=== PATIENT | male | born 1960 | race Caucasian/White ===

== ENCOUNTER 2018-02-19 13:32 | Inpatient (IN) | payer OTHER ==
[2018-02-19] MEDS ORDERED: SODIUM CHLORIDE 0.9% 1,000 ML IV STA (14:00)
--- NOTE | 2018-02-19 14:07 | ED ---
General Adult HPI - General Chief complaint: Syncope Stated complaint: Syncope Time Seen by Provider: 02/19/18 13:47 Source: patient, family, EMS, RN notes reviewed Mode of arrival: EMS Limitations: no limitations - History of Present Illness Initial comments: Patient is a pleasant 57-year-old male presenting to the emergency department following syncopal episode. Episode occurred prior to arrival. Patient was doing some work on the roof. Patient was coming down the ladder and started having some tightness in his chest. Tightness did radiate to both arms. Tightness is now resolved. When the patient got off the ladder he felt worse and went inside and then passed out. Patient was unresponsive for close to 1 minute. Patient is currently symptom-free. Patient has had similar chest discomfort in the past however not as severe. No history of previous syncopal episode. Patient did strike the area above his left eye. No headache or confusion or weakness. No dyspnea associated. No nausea vomiting. No diaphoresis. No leg pain or leg swelling. - Related Data Home Medications Medication Instructions Recorded Confirmed Ascorbic Acid [Vitamin C] 500 mg PO DAILY 02/19/18 02/19/18 Vitamin E 100 unit PO DAILY 02/19/18 02/19/18 Allergies Allergy/AdvReac Type Severity Reaction Status Date / Time Milk Containing Products AdvReac CONGESTION Verified 02/19/18 13:48 [Dairy] Review of Systems ROS Statement: Those systems with pertinent positive or pertinent negative responses have been documented in the HPI. ROS Other: All systems not noted in ROS Statement are negative. Constitutional: Denies: fever Eyes: Denies: eye pain ENT: Denies: ear pain Respiratory: Denies: cough, dyspnea Cardiovascular: Reports: chest pain (Resolved) Endocrine: Denies: fatigue Gastrointestinal: Denies: abdominal pain Genitourinary: Denies: dysuria Musculoskeletal: Denies: back pain Skin: Denies: rash Neurological: Denies: headache, weakness, confusion Past Medical History Past Medical History: No Reported History History of Any Multi-Drug Resistant Organisms: None Reported Past Surgical History: No Surgical Hx Reported Past Psychological History: No Psychological Hx Reported Smoking Status: Never smoker Past Alcohol Use History: Rare Past Drug Use History: None Reported General Exam Limitations: no limitations General appearance: alert, in no apparent distress Head exam: Present: other (Mild ecchymosis just below the left eyebrow) Eye exam: Present: normal appearance, PERRL, EOMI. Absent: nystagmus ENT exam: Present: normal oropharynx Neck exam: Present: normal inspection. Absent: tenderness Respiratory exam: Present: normal lung sounds bilaterally. Absent: chest wall tenderness Cardiovascular Exam: Present: regular rate, normal rhythm, systolic murmur Expanded Peripheral pulses: 2+: Radial (R), Radial (L), Posterior Tibialis (R), Posterior Tibialis (L), Dorsalis Pedis (R), Dorsalis Pedis (L) GI/Abdominal exam: Present: soft. Absent: distended, tenderness, pulsatile mass Extremities exam: Present: normal inspection. Absent: pedal edema, calf tenderness Neurological exam: Present: alert, oriented X3, CN II-XII intact. Absent: motor sensory deficit Expanded Neurological exam: Present: protecting the airway Patient oriented to: Present: person, place, time Speech: Present: fluid speech Cranial nerves: EOM's Intact: Normal Sensory exam: Upper Extremity Light Touch: Normal, Lower Extremity Light Touch: Normal Motor strength exam: RUE: 5, LUE: 5, RLE: 5, LLE: 5 Eye Response: (4) open spontaneously Motor Response: (6) obeys commands Verbal Response: (5) oriented Psychiatric exam: Present: normal affect, normal mood Skin exam: Present: other (Ecchymosis below the left eyebrow) Course Vital Signs 02/19/18 13:47 Temperature 98.1 F Pulse Rate 97 Respiratory 16 Rate Blood Pressure 143/95 O2 Sat by Pulse 97 Oximetry - Reevaluation(s) Reevaluation #1: 02/19/18 14:19 Case was discussed with Dr. Jose who agrees patient is not a candidate for emergent heart catheterization. He agrees with workup and d-dimer and will consult. 02/19/18 16:07 Case was also discussed with Dr. Schulz, who will admit covering for hospital call. EKG Findings - EKG Comments: EKG Findings:: Normal sinus rhythm 99. IN 188. QRS 90. QT 382. QTC 490. Normal axis. T-wave inversion in lead V3 through V5 with borderline ST depression. There is isolated elevation in aVR. Medical Decision Making - Medical Decision Making Patient reevaluated and resting comfortably in bed. Patient and family updated on results and plan. - Lab Data Result diagrams: 02/19/18 13:44 02/19/18 13:44 Lab Results 02/19/18 02/19/18 02/19/18 Range/Units 13:40 13:44 13:44 WBC 8.5 (3.8-10.6) k/uL RBC 4.63 (4.30-5.90) m/uL Hgb 14.0 (13.0-17.5) gm/dL Hct 42.6 (39.0-53.0) % MCV 92.2 (80.0-100.0) fL MCH 30.2 (25.0-35.0) pg MCHC 32.8 (31.0-37.0) g/dL RDW 12.7 (11.5-15.5) % Plt Count 257 (150-450) k/uL Neutrophils % 75 % Lymphocytes % 18 % Monocytes % 4 % Eosinophils % 1 % Basophils % 1 % Neutrophils # 6.4 (1.3-7.7) k/uL Lymphocytes # 1.5 (1.0-4.8) k/uL Monocytes # 0.4 (0-1.0) k/uL Eosinophils # 0.1 (0-0.7) k/uL Basophils # 0.1 (0-0.2) k/uL PT (9.0-12.0) sec INR (<1.2) APTT (22.0-30.0) sec D-Dimer (<0.60) mg/L FEU Sodium (137-145) mmol/L Potassium (3.5-5.1) mmol/L Chloride (98-107) mmol/L Carbon Dioxide (22-30) mmol/L Anion Gap mmol/L BUN (9-20) mg/dL Creatinine (0.66-1.25) mg/dL Est GFR (CKD-EPI)AfAm (>60 ml/min/1.73 sqM) Est GFR (CKD-EPI)NonAf (>60 ml/min/1.73 sqM) Glucose (74-99) mg/dL POC Glucose (mg/dL) 130 H (75-99) mg/dL POC Glu [employer] Supervisor ID Vianey Pichardo Calcium (8.4-10.2) mg/dL Magnesium (1.6-2.3) mg/dL Total Bilirubin (0.2-1.3) mg/dL AST (17-59) U/L ALT (21-72) U/L Alkaline Phosphatase (38-126) U/L Total Creatine Kinase 191 H (55-170) U/L CK-MB (CK-2) 3.8 H (0.0-2.4) ng/mL CK-MB (CK-2) Rel Index 2.0 Troponin I 0.085 H* (0.000-0.034) ng/mL Total Protein (6.3-8.2) g/dL Albumin (3.5-5.0) g/dL 02/19/18 02/19/18 Range/Units 13:44 13:44 WBC (3.8-10.6) k/uL RBC (4.30-5.90) m/uL Hgb (13.0-17.5) gm/dL Hct (39.0-53.0) % MCV (80.0-100.0) fL MCH (25.0-35.0) pg MCHC (31.0-37.0) g/dL RDW (11.5-15.5) % Plt Count (150-450) k/uL Neutrophils % % Lymphocytes % % Monocytes % % Eosinophils % % Basophils % % Neutrophils # (1.3-7.7) k/uL Lymphocytes # (1.0-4.8) k/uL Monocytes # (0-1.0) k/uL Eosinophils # (0-0.7) k/uL Basophils # (0-0.2) k/uL PT 9.8 (9.0-12.0) sec INR 0.9 (<1.2) APTT 20.8 L (22.0-30.0) sec D-Dimer 0.46 (<0.60) mg/L FEU Sodium 140 (137-145) mmol/L Potassium 4.1 (3.5-5.1) mmol/L Chloride 106 (98-107) mmol/L Carbon Dioxide 24 (22-30) mmol/L Anion Gap 10 mmol/L BUN 20 (9-20) mg/dL Creatinine 0.72 (0.66-1.25) mg/dL Est GFR (CKD-EPI)AfAm >90 (>60 ml/min/1.73 sqM) Est GFR (CKD-EPI)NonAf >90 (>60 ml/min/1.73 sqM) Glucose 118 H (74-99) mg/dL POC Glucose (mg/dL) (75-99) mg/dL POC Glu [employer] Supervisor ID Calcium 9.4 (8.4-10.2) mg/dL Magnesium 1.7 (1.6-2.3) mg/dL Total Bilirubin 0.6 (0.2-1.3) mg/dL AST 35 (17-59) U/L ALT 28 (21-72) U/L Alkaline Phosphatase 79 (38-126) U/L Total Creatine Kinase (55-170) U/L CK-MB (CK-2) (0.0-2.4) ng/mL CK-MB (CK-2) Rel Index Troponin I (0.000-0.034) ng/mL Total Protein 7.9 (6.3-8.2) g/dL Albumin 4.6 (3.5-5.0) g/dL - Radiology Data Radiology results: report reviewed (Computed tomography scan of brain shows no acute intercranial hemorrhage. Nonspecific right frontal change favoring chronic small vessel disease), image reviewed (Chest x-ray shows no acute process.) Critical Care Time Critical Care Time: Yes Total Critical Care Time: 33 Disposition Clinical Impression: NSTEMI (non-ST elevated myocardial infarction) Disposition: ADMITTED IP TO THIS HOSP Condition: Serious Is patient prescribed a controlled substance at d/c from ED?: No Referrals: None,Stated [Primary Care Provider] - 1-2 days Decision Time: 16:09
[2018-02-19 14:09] LABS: Glucose,Whole Blood 130 mg/dL (75-99)
[2018-02-19 14:40] LABS: Basophils # (A) 0.1 k/uL (0-0.2); Basophils % (A) 1 %; Eosinophils # (A) 0.1 k/uL (0-0.7); Eosinophils % (A) 1 %; HCT 42.6 % (39.0-53.0); Lymphocytes # (A) 1.5 k/uL (1.0-4.8); Lymphocytes % (A) 18 %; MCH 30.2 pg (25.0-35.0); MCHC 32.8 g/dL (31.0-37.0); MCV 92.2 fL (80.0-100.0); Mean Platelet Volume 7.4; Monocytes # (A) 0.4 k/uL (0-1.0); Monocytes % (A) 4 %; Neutrophils # (A) 6.4 k/uL (1.3-7.7); Neutrophils % (A) 75 %; Platelet Count 257 k/uL (150-450); RBC 4.63 m/uL (4.30-5.90); RDW 12.7 % (11.5-15.5); WBC 8.5 k/uL (3.8-10.6)
[2018-02-19 14:50] LABS: Albumin 4.6 g/dL (3.5-5.0); Anion Gap 10 mmol/L; Blood Urea Nitrogen 20 mg/dL (9-20); Calcium 9.4 mg/dL (8.4-10.2); Carbon Dioxide 24 mmol/L (22-30); Chloride 106 mmol/L (98-107); Glucose 118 mg/dL (74-99); Sodium 140 mmol/L (137-145); Total Bilirubin 0.6 mg/dL (0.2-1.3); Total Protein 7.9 g/dL (6.3-8.2)
[2018-02-19 14:52] LABS: ALT 28 U/L (21-72); AST 35 U/L (17-59); Alkaline Phosphatase 79 U/L (38-126); Magnesium 1.7 mg/dL (1.6-2.3); Potassium 4.1 mmol/L (3.5-5.1)
--- NOTE | 2018-02-19 15:05 | CT ---
EXAMINATION TYPE: CT brain wo con DATE OF EXAM: 02/19/2018 HISTORY: Syncope and dizziness, hit head injury. CT DLP: 1070.4 mGycm. Automated Exposure Control for Dose Reduction was Utilized. TECHNIQUE: CT scan of the head is performed without contrast. COMPARISON: None. FINDINGS: There is no acute intracranial hemorrhage or midline shift identified. Ventricles and sul ci are within normal limits in size for patient's age. Vague area of low-attenuation right frontal wh ite matter near axial image 31 is nonspecific. The globes are intact and the visualized sinuses are clear. The calvarium is intact. IMPRESSION: No acute intracranial hemorrhage or midline shift. There is nonspecific right frontal w ulysses matter change favoring product of chronic small vessel ischemia. Other etiologies not excluded.
[2018-02-19 15:10] LABS: INR 0.9 (<1.2)
[2018-02-19 15:11] LABS: D-Dimer 0.46 mg/L FEU (<0.60); Partial Thromboplastin Time 20.8 sec (22.0-30.0); Prothrombin Time 9.8 sec (9.0-12.0)
[2018-02-19 15:13] LABS: Creatine Kinase MB 3.8 ng/mL (0.0-2.4)
--- NOTE | 2018-02-19 15:21 | XR ---
EXAMINATION TYPE: XR chest 2V DATE OF EXAM: 02/19/2018 COMPARISON: NONE HISTORY: Chest pressure and shortness of breath TECHNIQUE: Frontal and lateral views of the chest are obtained. FINDINGS: There is eventration and elevation anterior aspect right hemidiaphragm. There is no focal a ir space opacity, pleural effusion, or pneumothorax seen. The cardiac silhouette size is mildly enla rged. The osseous structures are intact. IMPRESSION: Mild cardiomegaly without acute pulmonary process.
[2018-02-19 15:24] LABS: Troponin I 0.085 ng/mL (0.000-0.034)
[2018-02-19] MEDS ORDERED: NITROGLYCERIN SL TABS 0.4 MG TAB SUBLINGUAL PRN (16:23)
[2018-02-19] MEDS ORDERED: HEPARIN SODIUM,PORCINE 5,000 UNIT/ML 1 ML VIAL IV ONE (16:23)
[2018-02-19] MEDS ORDERED: HEPARIN SODIUM,PORCINE 5,000 UNIT/ML 1 ML VIAL IV PRN (16:23)
[2018-02-19] MEDS ORDERED: ASPIRIN 81 MG PO STA (16:23)
[2018-02-19] MEDS ORDERED: HEPARIN SOD,PORK IN 0.45% NACL 25,000 UNIT in 0.45% NACL 1 250ML.BAG IV SCH (16:30)
--- NOTE | 2018-02-19 19:19 | CONS ---
CONSULTATION CHIEF COMPLAINT: Syncope. Volodymyr is a 57-year-old gentleman with no significant past medical history who presented to the hospital having had an episode of syncope. He was up on a ladder coming down, felt dizzy, had discomfort in both arms and then suddenly had a syncopal event. He did not have further episodes of chest pain. He came to the ER where his EKG showed sinus rhythm with inferolateral T-wave inversion and his troponin was mildly elevated at 0.08. At the time of my evaluation in the emergency room, he is pain free, hemodynamically stable and in no apparent distress. PAST MEDICAL HISTORY: Negative for hypertension, diabetes or dyslipidemia. MEDICATIONS: None. ALLERGIES: None. FAMILY HISTORY: Negative for premature coronary artery disease. SOCIAL HISTORY: Negative for current smoking, EtOH abuse, or drug abuse. REVIEW OF SYSTEMS: HEENT: Significant for syncope. Cardiac as described above. Respiratory negative. GI negative. : Negative. ALLERGY: Negative. SKIN unremarkable. MUSCULOSKELETAL: Significant for arthritis. PSYCHOSOCIAL: Negative. ENDOCRINE: Negative. DERM: Negative. CONSTITUTIONAL: Negative. ONCOLOGICAL: Negative. CENTRAL NERVOUS SYSTEM: Negative. EXAM: Patient is comfortable at rest. Afebrile. Heart rate is 84 beats per minute. Blood pressure is 153/80. Respirations 18. O2 sat is 98% on room air. There is no jugular venous distention. Carotid upstroke is normal. There is no bruit. Chest exam reveals good air entry bilaterally. Heart exam reveals first and second heart sounds. There is a 4/6 ejection systolic murmur in the aortic area. No murmur. No rub. Abdomen is soft, nontender. Exam of extremities did not reveal edema. Peripheral pulses are felt and a EKGs as described above. Lab showed that the potassium is 4.1. Creatinine is normal. Hemoglobin is normal. Trope is elevated. ASSESSMENT: 1. Severe symptomatic aortic stenosis. 2. Non ST-segment elevation myocardial infarction. PLAN: I reviewed an echocardiogram that was being done at bedside. Has severe aortic stenosis with severe restriction leaflet mobility. I am going to perform a ELI and heart catheterization on him tomorrow. MMODL / IJN: [id number] /
--- NOTE | 2018-02-19 19:35 | P.HPIM ---
History of Present Illness 57-year-old that came in after episode of syncope patient the was coming down the ladder fell dizzy had chest discomfort which is typical with lightheadedness denied any significant diaphoresis and shortness of breath his the chest pain is in the precordial area pressure-like sensation lasted for a few minutes followed by syncope. Patient denied any fever chills cough. Fourth set of troponin is 0.085 and patient does have T-wave inversions in inferolateral leads as well as ST depressions in the inferior leads. Patient was started on IV heparin is being treated like non-ST elevation myocardial infarction Undergo cardiac catheterization tomorrow patient is presently chest pain-free. Patient does have bruising over left eyelids from fall. Review of Systems REVIEW OF SYSTEMS: CONSTITUTIONAL: No fever, no malaise, no fatigue. HEENT: No recent visual problems or hearing problems. Denied any sore throat. CARDIOVASCULAR: As mentioned in HPI PULMONARY: No shortness of breath, no cough, no hemoptysis. GASTROINTESTINAL: No diarrhea, no nausea, no vomiting, no abdominal pain. NEUROLOGICAL: No headaches, no weakness, no numbness. HEMATOLOGICAL: Denies any bleeding or petechiae. GENITOURINARY: Denies any burning micturition, frequency, or urgency. MUSCULOSKELETAL/RHEUMATOLOGICAL: Denies any joint pain, swelling, or any muscle pain. ENDOCRINE: Denies any polyuria or polydipsia. The rest of the 14-point review of systems is negative. Past Medical History Past Medical History: No Reported History History of Any Multi-Drug Resistant Organisms: None Reported Past Surgical History: No Surgical Hx Reported Past Psychological History: No Psychological Hx Reported Smoking Status: Never smoker Past Alcohol Use History: Rare Past Drug Use History: None Reported Medications and Allergies Home Medications Medication Instructions Recorded Confirmed Type Ascorbic Acid [Vitamin C] 500 mg PO DAILY 02/19/18 02/19/18 History Vitamin E 100 unit PO DAILY 02/19/18 02/19/18 History Allergies Allergy/AdvReac Type Severity Reaction Status Date / Time Milk Containing Products AdvReac CONGESTION Verified 02/19/18 13:48 [Dairy] Physical Exam Vitals: Vital Signs Temp Pulse Resp BP Pulse Ox 02/19/18 17:00 97.8 F 84 20 153/82 98 02/19/18 16:00 82 18 128/88 98 02/19/18 15:00 86 18 132/84 97 01/07/19 14:00 98 18 143/95 98 02/19/18 13:47 98.1 F 97 16 143/95 97 02/19/18 13:37 100 Intake and Output 02/19/18 02/19/18 02/19/18 06:59 14:59 22:59 Other: Weight 92.986 kg PHYSICAL EXAMINATION: GENERAL: The patient is alert and oriented x3, not in any acute distress. Well developed, well nourished. HEENT: Pupils are round and equally reacting to light. EOMI. No scleral icterus. No conjunctival pallor. Normocephalic, atraumatic. No pharyngeal erythema. No thyromegaly. CARDIOVASCULAR: S1 and S2 present. She does have an ejection systolic murmur and diuretic area as well as pansystolic murmur in the mitral area mitral area murmur is soft murmur PULMONARY: Chest is clear to auscultation, no wheezing or crackles. ABDOMEN: Soft, nontender, nondistended, normoactive bowel sounds. No palpable organomegaly. MUSCULOSKELETAL: No joint swelling or deformity. EXTREMITIES: No cyanosis, clubbing, or pedal edema. NEUROLOGICAL: Gross neurological examination did not reveal any focal deficits. SKIN: No rashes. Results CBC & Chem 7: 02/19/18 13:44 02/19/18 13:44 Labs: Abnormal Lab Results - Last 24 Hours (Table) 02/19/18 02/19/18 02/19/18 Range/Units 13:40 13:44 13:44 APTT (22.0-30.0) sec Glucose 118 H (74-99) mg/dL POC Glucose (mg/dL) 130 H (75-99) mg/dL Total Creatine Kinase 191 H (55-170) U/L CK-MB (CK-2) 3.8 H (0.0-2.4) ng/mL Troponin I 0.085 H* (0.000-0.034) ng/mL 02/19/18 Range/Units 13:44 APTT 20.8 L (22.0-30.0) sec Glucose (74-99) mg/dL POC Glucose (mg/dL) (75-99) mg/dL Total Creatine Kinase (55-170) U/L CK-MB (CK-2) (0.0-2.4) ng/mL Troponin I (0.000-0.034) ng/mL Assessment and Plan Plan: -Acute non-ST elevation microinfarction: Patient was started on heparin, statin beta silvia and antiplatelet therapy cardiology evaluated the patient echocardiogram will be obtained -Possible severe symptomatic aortic stenosis patient may have mitral regurgitation as well. -Ruled out pulmonary embolism with a d-dimer which was negative. -Syncope possibly secondary to aortic stenosis and acute myocardial infarction
[2018-02-19 20:23] LABS: Creatine Kinase MB 6.4 ng/mL (0.0-2.4)
[2018-02-19 20:26] LABS: Troponin I 0.384 ng/mL (0.000-0.034)
[2018-02-19] MEDS: NITROGLYCERIN OINT 1 INCH/GM PACKET TOPICAL SCH (23:17)
[2018-02-20] MEDS: NITROGLYCERIN OINT 1 INCH/GM PACKET TOPICAL SCH ×2 (01:39→07:01)
[2018-02-20 01:42] LABS: Creatine Kinase MB 7.1 ng/mL (0.0-2.4)
[2018-02-20 01:51] LABS: Troponin I 0.243 ng/mL (0.000-0.034)
--- NOTE | 2018-02-20 07:34 | ECHOF ---
Referral Reason:nstemi MEASUREMENTS -------- HEIGHT: 180.3 cm WEIGHT: 93.0 kg BP: 169/103 RVIDd: 3.0 cm (< 3.3) IVSd: 1.3 cm (0.6 - 1.1) LVIDd: 4.6 cm (3.9 - 5.3) LVPWd: 1.3 cm (0.6 - 1.1) IVSs: 1.7 cm LVIDs: 3.2 cm LVPWs: 1.7 cm LAESV Index (A-L): 28.83 ml/m Ao Diam: 3.6 cm (2.0 - 3.7) AV Cusp: 0.8 cm (1.5 - 2.6) LA Diam: 4.0 cm (2.7 - 3.8) EPSS: 1.1 cm MV E Jose Guadalupe: 0.63 m/s MV DecT: 429 ms MV A Jose Guadalupe: 1.26 m/s MV E/A Ratio: 0.50 AV maxP.89 mmHg AV meanP.39 mmHg RAP: 5.00 mmHg RVSP: 16.54 mmHg MV EF SLOPE: 209.88 mm/s (70 - 150) MV EXCURSION: 2.09 cm (> 18.000) FINDINGS -------- Sinus rhythm. This was a technically good study. The left ventricular size is normal. There is mild concentric left ventricular hypertrophy. Overa ll left ventricular systolic function is low-normal with, an EF between 50 - 55 %. Inferior basal H ypokinesis The right ventricle is normal in size and function. LA is midly dilated 29-33ml/m2. The right atrium is normal in size. There is severe aortic valve sclerosis. There is alvx-am-qobbtydy aortic regurgitation. There is severe aortic stenosis present. Peak/mean gradient across the Aortic Valve is 102.89mmHg / 68.39mmH g. The mitral valve leaflets are mildly thickened. Mild mitral annular calcification present. Mild m itral regurgitation is present. Trace tricuspid regurgitation present. There is no evidence of pulmonary hypertension. The right ventricular systolic pressure, as measured by Doppler, is 16.54mmHg. Trace/mild (physiologic) pulmonic regurgitation. The aortic root size is normal. Normal inferior vena cava with normal inspiratory collapse consistent with estimated right atrial pre ssure of 5 mmHg. There is no pericardial effusion. CONCLUSIONS -------- 1. Sinus rhythm. 2. This was a technically good study. 3. The left ventricular size is normal. 4. There is mild concentric left ventricular hypertrophy. 5. Overall left ventricular systolic function is low-normal with, an EF between 50 - 55 %. 6. Inferior basal Hypokinesis 7. LA is midly dilated 29-33ml/m2. 8. There is severe aortic valve sclerosis. 9. There is awtv-us-cwfustyj aortic regurgitation. 10. There is severe aortic stenosis present. 11. Peak/mean gradient across the Aortic Valve is 102.89mmHg / 68.39mmHg. 12. The mitral valve leaflets are mildly thickened. 13. Mild mitral annular calcification present. 14. Mild mitral regurgitation is present. 15. Trace tricuspid regurgitation present. 16. There is no evidence of pulmonary hypertension. 17. The right ventricular systolic pressure, as measured by Doppler, is 16.54mmHg. 18. Trace/mild (physiologic) pulmonic regurgitation. 19. The aortic root size is normal. 20. There is no pericardial effusion. ENTRY LEVEL STAFF ACCOUNTANT: Troy Salas RDCS
[2018-02-20] MEDS ORDERED: NITROGLYCERIN SL TABS 0.4 MG TAB SUBLINGUAL PRN (08:14)
[2018-02-20] MEDS ORDERED: ALPRAZolam 0.25 MG TAB PO PRN (08:14)
[2018-02-20] MEDS ORDERED: SODIUM CHLORIDE 0.9% 1,000 ML in EMPTY BAG 1 BAG IV ONE (08:14)
[2018-02-20] MEDS ORDERED: ALPRAZolam 0.5 MG TAB PO PRN (08:14)
[2018-02-20] MEDS ORDERED: ATORVASTATIN 80 MG TAB PO STA (08:17)
[2018-02-20] MEDS ORDERED: ASPIRIN 325 MG TAB PO STA (08:17)
[2018-02-20] MEDS ORDERED: ASPIRIN 325 MG TAB PO SCH (09:00)
[2018-02-20] MEDS ORDERED: LIDOCAINE 1% INJ 10MG/ML (20 ML MDV) ONE (10:54)
[2018-02-20] MEDS ORDERED: MIDAZOLAM 2 MG/2 ML VIAL IVP ONE (11:09)
[2018-02-20] MEDS ORDERED: LIDOCAINE 1% INJ 10MG/ML (20 ML MDV) SQ ONE (11:09)
[2018-02-20] MEDS ORDERED: fentaNYL (PF) 50 MCG/ML 2 ML AMP IVP ONE (11:09)
[2018-02-20] MEDS ORDERED: fentaNYL (PF) 50 MCG/ML 2 ML AMP ONE (11:13)
[2018-02-20] MEDS ORDERED: IOPAMIDOL-370 125ML BTL INJ ONE (11:26)
[2018-02-20] MEDS ORDERED: IV FLUID CONTINUATION 1,000 ML IV ONE (11:27)
[2018-02-20] MEDS ORDERED: RX INFO: IV CONTRAST WAS GIVEN 1 EACH MISC MISCELLANE PRN (11:33)
--- NOTE | 2018-02-20 11:56 | CC ---
CARDIAC CATHETERIZATION REPORT INDICATION: 1. Syncope. 2. Non ST-segment elevation OR. 3. Aortic stenosis. PROCEDURE NOTE: After obtaining informed consent, left heart catheterization, coronary angiogram are performed via the right femoral artery using standard Red catheters. The patient tolerated the procedure well without any obvious immediate complications. A femoral angiogram was performed and Angio-Seal will be deployed for hemostasis. FINDINGS: 1. HEMODYNAMICS: Central aortic pressure is 142/90 mm. 2. LEFT VENTRICULOGRAM: Left ventriculogram was not performed. 3. ANGIOGRAPHIC DATA: Left main coronary artery appears calcified but is free of significant stenosis. Divides into left anterior descending coronary artery and circumflex coronary artery. LAD and its branches are free of significant stenosis. Circumflex coronary artery shows mild nonobstructive disease. Right coronary artery is a large dominant vessel and is free of significant stenosis. CONCLUSION: 1. Mild nonobstructive coronary artery disease. 2. Severe aortic stenosis. PLAN: Patient will need an aortic valve replacement. I am going to ask the surgeon to evaluate the patient. MMODL / IJN: [id number] /
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
[2018-02-20] MEDS: SODIUM CHLORIDE 0.9% 1,000 ML IV SCH ×2 (15:37→22:43)
[2018-02-20] MEDS: amLODIPine 10 MG TAB PO SCH (16:28)
[2018-02-20 16:35] LABS: Appearance,Urine Clear (Clear); Bilirubin,Urine Negative (Negative); Blood,Urine Trace (Negative); Color,Urine Yellow; Glucose,Urine (UA) Negative (Negative); Ketones,Urine Negative (Negative); Leukocyte Esterase,Urine Negative (Negative); Nitrite,Urine Negative (Negative); Protein,Urine Negative (Negative); RBC,Urine 6 /hpf (0-5); Urobilinogen,Urine <2.0 mg/dL (<2.0); WBC,Urine 2 /hpf (0-5)
[2018-02-20 16:36] LABS: Specific Gravity,Urine 1.046 (1.001-1.035)
--- NOTE | 2018-02-20 17:21 | P.PN ---
Subjective Patient came in with the chest pain, syncopal episode with elevated troponins. Patient underwent cardia catheterization which did not show any significant atherosclerotic coronary occlusive disease patient appears to have severe aortic stenosis for which occurred in thoracic surgery was consulted and they evaluated the patient patient probably will be discharged tomorrow will come back for valve replacement. Cardiac thoracic surgery is presently doing pulmonary workup for valve replacement. Constitutional: Denied any fatigue denied any fever. Cardio vascular: denied any chest pain, palpitations Gastrointestinal denied any nausea vomiting Pulmonary: Denied any shortness of breath cough Neurologic denied any new focal deficits All inpatient medications were reviewed and appropriate changes in these medications as dictated in the interval history and assessment and plan. Objective - Vital Signs Vital signs: Vital Signs Temp 97.4 F L 02/20/18 15:18 Pulse 65 02/20/18 15:18 Resp 18 02/20/18 15:18 BP 121/77 02/20/18 15:18 Pulse Ox 94 L 02/20/18 15:18 Intake & Output 02/19/18 02/20/18 02/20/18 18:59 06:59 18:59 Intake Total 916.643 50 Balance 916.643 50 Weight 92.986 kg Intake: IV 50 Intake, IV Titration 676.643 Amount Heparin Sod,Pork in 0.45% 76.643 NaCl 25,000 unit In 0.45 % NaCl 1 250ml.bag @ 10. 77 UNITS/KG/HR 10.01 mls/ hr IV .Q24H JOVANNY Rx#: [id number] Sodium Chloride 0.9% 1, 600 000 ml @ 100 mls/hr IV . Q10H STA Rx#:[id number] Oral 240 Other: Voiding Method Toilet # Voids 4 - Exam PHYSICAL EXAMINATION: GENERAL: The patient is alert and oriented x3, not in any acute distress. Well developed, well nourished. HEENT: Pupils are round and equally reacting to light. EOMI. No scleral icterus. No conjunctival pallor. Normocephalic, atraumatic. No pharyngeal erythema. No thyromegaly. CARDIOVASCULAR: S1 and S2 present. Systolic murmur and aortic area PULMONARY: Chest is clear to auscultation, no wheezing or crackles. ABDOMEN: Soft, nontender, nondistended, normoactive bowel sounds. No palpable organomegaly. MUSCULOSKELETAL: No joint swelling or deformity. EXTREMITIES: No cyanosis, clubbing, or pedal edema. NEUROLOGICAL: Gross neurological examination did not reveal any focal deficits. SKIN: No rashes. - Labs CBC & Chem 7: 02/19/18 13:44 02/19/18 13:44 Labs: Abnormal Lab Results - Last 24 Hours (Table) 02/19/18 02/19/18 02/20/18 Range/Units 14:41 19:27 00:29 APTT 31.2 H (22.0-30.0) sec Total Creatine Kinase 285 H (55-170) U/L CK-MB (CK-2) 6.4 H (0.0-2.4) ng/mL Troponin I 0.384 H* (0.000-0.034) ng/mL Ur Specific [place] 1.046 H (1.001-1.035) Urine Blood Trace H (Negative) Urine RBC 6 H (0-5) /hpf 02/20/18 Range/Units 00:29 APTT (22.0-30.0) sec Total Creatine Kinase 336 H (55-170) U/L CK-MB (CK-2) 7.1 H (0.0-2.4) ng/mL Troponin I 0.243 H* (0.000-0.034) ng/mL Ur Specific [place] (1.001-1.035) Urine Blood (Negative) Urine RBC (0-5) /hpf Assessment and Plan Plan: -Elevated troponin secondary to cardiac stenosis patient underwent cardiac catheterization there is no stent table atherosclerotic coronary occlusive disease - severe symptomatic aortic stenosis: Patient was evaluated by car to thoracic surgery for valve replacement -Ruled out pulmonary embolism with a d-dimer which was negative. -Syncope possibly secondary to aortic stenosis .
--- NOTE | 2018-02-20 22:38 | US ---
EXAMINATION TYPE: US carotid duplex BILAT DATE OF EXAM: 02/20/2018 COMPARISON: NONE CLINICAL HISTORY: PreOp Cardiac Surgery EXAM MEASUREMENTS: RIGHT: Peak Systolic Velocity (PSV) cm/sec ----- Right CCA: 75.7 ----- Right ICA: 130.7 ----- Right ECA: 130.7 ICA/CCA ratio: 1.7 RIGHT: End Diastole cm/sec ----- Right CCA: 23.0 ----- Right ICA: 51.5 ----- Right ECA: 16.0 LEFT: Peak Systolic Velocity (PSV) cm/sec ----- Left CCA: 72.5 ----- Left ICA: 101.6 ----- Left ECA: 104.8 ICA/CCA ratio: 1.4 LEFT: End Diastole cm/sec ----- Left CCA: 25.2 ----- Left ICA: 33.8 ----- Left ECA: 16.0 VERTEBRALS (direction of flow): Right Vertebral: Antegrade Left Vertebral: Antegrade Rhythm: Normal IMPRESSION: 1. Bilateral plaque noted, left greater than right. 2. Mildly elevated velocities without significant stenosis.
--- NOTE | 2018-02-21 03:12 | CT ---
EXAMINATION TYPE: CT angio chest oral contrast and with 3-D reconstruction renderings DATE OF EXAM: 02/20/2018 5:00 PM COMPARISON: None HISTORY: Preoperative Technique: Department protocol utilizing precontrast and postcontrast imaging. Automated exposure control for dose reduction was used. Axial and coronal and sagittal data sets were obtained prior to and following IV contrast delivery. 3-D reconstructions obtained and reviewed. FINDINGS: AIRWAYS: Negative. LUNGS: The lungs are clear and well-expanded bilaterally. MEDIASTINUM: The heart is top normal in size. Pericardial space is negative.There are prominent left and right coronary calcifications and marked calcification of the aortic valve. The left and right he art chambers are unremarkable, and they are without filling defects. The proximal ascending aorta is mildly dilated at 4 cm caliber. There is mild tortuosity of the thoracic aorta. The pulmonary arteria l anatomy has normal caliber and is widely patent. There is no mediastinal or hilar adenopathy. SKELETAL STRUCTURES: No focal findings. OTHER: Staghorn right renal calcifications incidentally noted. IMPRESSION: 1. NO ACUTE PROCESS. 2. AORTIC VALVE CALCIFICATIONS WITH MILDLY DILATED CALIBER OF THE ASCENDING AORTA. 3. CORONARY CALCIFICATIONS.
[2018-02-21 07:44] VITALS: TEMP 97.4
[2018-02-21 07:54] LABS: Mean Platelet Volume 7.1; Platelet Count 237 k/uL (150-450)
[2018-02-21] MEDS ORDERED: ASPIRIN 325 MG TAB PO SCH (09:00)
[2018-02-21] MEDS ORDERED: fentaNYL (PF) 50 MCG/ML 2 ML AMP ONE (09:24)
[2018-02-21] MEDS ORDERED: IV FLUID CONTINUATION 1,000 ML IV ONE (09:39)
[2018-02-21] MEDS: BENZOCAINE SPRAY 1 CAN MUCOUS MEM ONE ×2 (09:43→09:50)
[2018-02-21] MEDS ORDERED: MIDAZOLAM 2 MG/2 ML VIAL IV ONE ×2 (09:51→09:55)
[2018-02-21] MEDS ORDERED: fentaNYL (PF) 50 MCG/ML 2 ML AMP IV ONE (09:55)
--- NOTE | 2018-02-21 10:37 | ECHOT ---
TRANSESOPHAGEAL ECHOCARDIOGRAM INDICATION: Aortic stenosis. PROCEDURE NOTE: After obtaining informed consent, transesophageal echocardiogram was performed in left lateral position using an Omniplane probe. Local and IV sedation were obtained using Xylocaine spray, 2 mg of Versed and 25 mcg of fentanyl. The patient tolerated the procedure well without any obvious immediate complications. The patient received moderate conscious sedation. Total sedation time was 10 minutes. FINDINGS: 1. Aortic valve: Aortic valve appears heavily calcified with severe restriction in leaflet mobility. By planimetry, the valve area is 0.8 square centimeters. It is it is probably a quadricuspid valve. The ascending aorta appears mildly dilated, measures about 3.8 cm. Aortic root measures 3.1 cm. There is mild to moderate aortic regurgitation noted. 2. Mitral valve is anatomically normal. There is trace mitral regurgitation noted. 3. Tricuspid valve appears normal. 4. Interatrial septum: There is no evidence of gytr-zy-[id number] shunt by color-flow Doppler or ewdsi-[id number] shunt by agitated saline contrast study. 5. Left atrium has normal size. 6. Right atrium and right ventricle seen within normal limits. 7. Left ventricle has normal size and systolic function with an ejection fraction of 60%. 8. Aorta is free of significant atherosclerotic changes. CONCLUSIONS: 1. Severe aortic stenosis involving probably a quadricuspid valve. It is certainly not a bicuspid valve. We could not clearly visualize all the 4 leaflets. It is heavily calcified. Severe restriction in leaflet mobility. Valve area is 0.8 square centimeters. 2. There is mild to moderate aortic regurgitation noted. 3. Normal left ventricular function. MMODL / IJN: [id number] /
[2018-02-21 10:44] VITALS: BP 115/74; PULSE 69; RESP 18
[2018-02-21] MEDS ORDERED: SODIUM CHLORIDE 0.9% 1,000 ML IV SCH (10:45)
--- NOTE | 2018-02-21 11:21 | P.PN ---
Subjective Progress Note Date: 02/21/18 Principal diagnosis: Severe aortic stenosis, syncopal event, non-STEMI, mild nonobstructive coronary artery disease. Previous medical history of obesity, family history of early onset coronary artery disease. Patient sitting up in bed in no acute distress. Denies pain or shortness of breath. No new complaints. He had a transesophageal echocardiogram completed this morning demonstrating severely stenotic aortic valve, valve area 0.8 cm by planimetry, and mild to moderate aortic regurgitation. Objective - Vital Signs Vital signs: Vital Signs Temp 97.4 F L 02/21/18 07:43 Pulse 69 02/21/18 10:39 Resp 18 02/21/18 10:39 BP 115/74 02/21/18 10:39 Pulse Ox 95 02/21/18 10:00 Intake & Output 02/20/18 02/21/18 02/21/18 18:59 06:59 18:59 Intake Total 290 1140 100 Balance 290 1140 100 Weight 95.1 kg Intake: IV 50 60 100 Invasive Line 1 30 Invasive Line 2 30 Intake, IV Titration 600 Amount Sodium Chloride 0.9% 1, 600 000 ml @ 75 mls/hr IV . Q50A18Q JOVANNY Rx#:[id number] Oral 240 480 0 Other: Voiding Method Toilet # Voids 0 3 - Constitutional General appearance: Present: cooperative, no acute distress - EENT EENT Comment(s): Subconjunctival hemorrhage present bilaterally with periorbital ecchymosis. - Respiratory Details: Lungs sounds clear bilaterally. Respirations even, nonlabored. Currently on room air with oxygen saturation 96%. Able to achieve 3250 mL on his incentive spirometry. - Cardiovascular Details: S1, S2 present. Systolic murmur present. Slow but regular rate and rhythm, sinus bradycardia on telemetry. Palpable peripheral pulses bilaterally. No edema present. No calf pain or tenderness noted. - Gastrointestinal Gastrointestinal Comment(s): Abdomen soft, nontender, nondistended. Active bowel sounds 4 quadrants. Tolerating diet. - Genitourinary Genitourinary Comment(s): Continues to void clear, yellow urine. - Integumentary Integumentary Comment(s): Skin is warm and dry with evidence of good perfusion. - Neurologic Neurologic: Present: CNII-XII intact - Musculoskeletal Musculoskeletal: Present: gait normal, strength equal bilaterally - Psychiatric Psychiatric: Present: A&O x's 3, appropriate affect, intact judgment & insight - Allied health notes Allied health notes reviewed: nursing - Labs CBC & Chem 7: 02/21/18 06:53 02/19/18 13:44 Labs: Abnormal Lab Results - Last 24 Hours (Table) 02/19/18 02/21/18 Range/Units 14:41 06:53 Triglycerides 154 H (<150) mg/dL Cholesterol 260 H (<200) mg/dL LDL Cholesterol, Calc 190 H (0-99) mg/dL HDL Cholesterol 39 L (40-60) mg/dL Ur Specific [place] 1.046 H (1.001-1.035) Urine Blood Trace H (Negative) Urine RBC 6 H (0-5) /hpf Microbiology - Last 24 Hours (Table) 02/20/18 Unknown Nasal Screen MRSA/MSSA - Preliminary Nasal Swab Assessment and Plan (1) Family history of premature coronary artery disease Current Visit: Yes Status: Chronic Code(s): Z82.49 - FAMILY HX OF ISCHEM HEART DIS AND OTH DIS OF THE CIRC SYS SNOMED Code(s): 413315742 (2) NSTEMI (non-ST elevated myocardial infarction) Current Visit: Yes Status: Acute Code(s): I21.4 - NON-ST ELEVATION (NSTEMI) MYOCARDIAL INFARCTION SNOMED Code(s): 27161982 (3) Obesity Current Visit: Yes Status: Chronic Code(s): E66.9 - OBESITY, UNSPECIFIED SNOMED Code(s): 065692132 (4) Severe aortic valve stenosis Current Visit: Yes Status: Chronic Code(s): I35.0 - NONRHEUMATIC AORTIC ( VALVE) STENOSIS SNOMED Code(s): 61779435 Plan: 1. Patient may be discharged to home from our standpoint. He is to follow-up with Dr. Real in the office on 03/02/2018 at 11 AM to schedule surgery. 2. Preoperative teaching was initiated, continue to reinforce. 3. Patient instructed to obtain dental clearance prior to scheduling surgery. 4. 5 m walk test was completed this morning, #1 3.36 seconds, #2 3.13 seconds, #3 2.57 seconds. 5. STS risk score was calculated and discussed with the patient. 6. Medical management per cardiology, primary care. 7. More recommendations to follow. Time with Patient: Greater than 30
--- NOTE | 2018-02-21 11:27 | P.DS ---
Providers Date of admission: 02/19/18 16:23 Attending physician: Magnus Schulz Consults: 02/19/18 16:23 Consult Physician Urgent Consulting Provider: Lukas Pranell Consult Reason/Comments: nstemi Do you want consulting provider notified?: Yes 02/20/18 15:20 Consult Physician Urgent Consulting Provider: Fly Real Consult Reason/Comments: aortic stenosis Do you want consulting provider notified?: Yes Primary care physician: Stated None Hospital Course: Patient came in with the chest pain, syncopal episode with elevated troponins. Patient underwent cardia catheterization which did not show any significant atherosclerotic coronary occlusive disease patient appears to have severe aortic stenosis for which occurred in thoracic surgery was consulted and they evaluated the patient patient probably will be discharged tomorrow will come back for valve replacement. Cardiac thoracic surgery is presently doing pulmonary workup for valve replacement. 02/21/2018 Patient will be discharged today patient was referred to Dr. Gaffney as a primary care physician Exam PHYSICAL EXAMINATION: GENERAL: The patient is alert and oriented x3, not in any acute distress. Well developed, well nourished. HEENT: Pupils are round and equally reacting to light. EOMI. No scleral icterus. No conjunctival pallor. Normocephalic, atraumatic. No pharyngeal erythema. No thyromegaly. CARDIOVASCULAR: S1 and S2 present. Systolic murmur and aortic area PULMONARY: Chest is clear to auscultation, no wheezing or crackles. ABDOMEN: Soft, nontender, nondistended, normoactive bowel sounds. No palpable organomegaly. MUSCULOSKELETAL: No joint swelling or deformity. EXTREMITIES: No cyanosis, clubbing, or pedal edema. NEUROLOGICAL: Gross neurological examination did not reveal any focal deficits. SKIN: No rashes. Assessment and Plan Plan: -Elevated troponin secondary to cardiac stenosis patient underwent cardiac catheterization there is no stent table atherosclerotic coronary occlusive disease - severe symptomatic aortic stenosis: Patient was evaluated by cardio thoracic surgery for valve replacement, follow-up as an outpatient and will come back for valve replacement -Ruled out pulmonary embolism with a d-dimer which was negative. -Syncope possibly secondary to aortic stenosis . Patient Condition at Discharge: Stable Plan - Discharge Summary Discharge Rx Participant: No New Discharge Prescriptions: New amLODIPine [Norvasc] 5 mg PO DAILY #30 tab Aspirin 81 mg PO DAILY #30 chewable Atorvastatin [Lipitor] 80 mg PO HS #30 tab Continue Ascorbic Acid [Vitamin C] 500 mg PO DAILY Vitamin E 100 unit PO DAILY Discharge Medication List Ascorbic Acid [Vitamin C] 500 mg PO DAILY 02/19/18 [History] Vitamin E 100 unit PO DAILY 02/19/18 [History] Aspirin 81 mg PO DAILY #30 chewable 02/21/18 [Rx] Atorvastatin [Lipitor] 80 mg PO HS #30 tab 02/21/18 [Rx] amLODIPine [Norvasc] 5 mg PO DAILY #30 tab 02/21/18 [Rx] Follow up Appointment(s)/Referral(s): Fly Real MD [STAFF PHYSICIAN] - 03/02/18 11:00 am (Monday) Jenn Gaffney MD [STAFF PHYSICIAN] - 02/28/18 9:45 am (Monday please arrive 15mins early. -if you are a [facility] patient, [facility] is $105 pre service) Patient Instructions/Handouts: *Surgery [facility] - After Heart Catheterization - Channel Development Manager Instructions, Aortic Valve Replacement (PRE), Left Heart Catheterization (DC) Discharge Disposition: HOME SELF-CARE
[2018-02-21] MEDS: amLODIPine 10 MG TAB PO SCH (12:30)
[2018-02-21 19:12] LABS: Hepatitis A Antibody IgM Non-Reactive (Non-Reactive); Hepatitis B Core IgM Non-Reactive (Non-Reactive)
[2018-02-21] MEDS ORDERED: ATORVASTATIN 80 MG TAB PO SCH (21:00)
[2018-02-21 21:04] LABS: Hemoglobin A1C 5.4 % (4.0-6.0)
== END 2018-02-21 12:45 | disposition home or self-care (01) | DRG 287 ==
LOC: EC 13:32 → 3SCARD 16:23 → 2ORMAIN 02-20 07:45 → 3SCARD 02-20 14:57
PROVIDERS: ADMIT Internal Medicine; ATTEND Internal Medicine
PROC: B2111ZZ Fluoroscopy of Multiple Coronary Arteries using Low Osmolar Contrast (ICD-10-PCS; 2018-02-20)
PROC: 4A023N7 Measurement of Cardiac Sampling and Pressure, Left Heart, Percutaneous Approach (ICD-10-PCS; principal; 2018-02-20 10:20)
PROC: B24BZZ4 Ultrasonography of Heart with Aorta, Transesophageal (ICD-10-PCS; 2018-02-21)
DX: I08.3 Combined rheumatic disorders of mitral, aortic and tricuspid valves (principal); E66.9 Obesity, unspecified; I25.10 Atherosclerotic heart disease of native coronary artery without angina pectoris; M19.90 Unspecified osteoarthritis, unspecified site; R55 Syncope and collapse; H11.33 Conjunctival hemorrhage, bilateral; Z91.011 Allergy to milk products; Z68.29 Body mass index [BMI] 29.0-29.9, adult; Z82.49 Family history of ischemic heart disease and other diseases of the circulatory system; Z80.8 Family history of malignant neoplasm of other organs or systems; Z80.3 Family history of malignant neoplasm of breast; Z80.1 Family history of malignant neoplasm of trachea, bronchus and lung
CPT/HCPCS: 36415; 70450; 71046; 71275; 80053; 80061; 80074; 81001; 82550; 82553; 83036; 83735; 84443; 84484; 85025; 85049; 85379; 85610; 85730; 87070; 93005; 93306; 93312; 93320; 93325; 93454; 93880; 93922; 93970; 94150; 96361; 96365; 96366; 96376; 99291

== ENCOUNTER 2018-08-02 16:28 | Inpatient (IN) | payer OTHER ==
[2018-08-02] MEDS ORDERED: ASPIRIN 81 MG PO STA (16:56)
[2018-08-02] MEDS ORDERED: NITROGLYCERIN OINT 1 INCH/GM PACKET TOPICAL STA (16:56)
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
[2018-08-02] MEDS ORDERED: DILTIAZEM DRIP BOLUS FROM BAG 1 MG SOLN IV ONE (17:11)
[2018-08-02] MEDS ORDERED: HEPARIN SODIUM,PORCINE 5,000 UNIT/ML 1 ML VIAL IV ONE (17:11)
[2018-08-02] MEDS ORDERED: DILTIAZEM 125 MG in SODIUM CHLORIDE 0.9% 100 ML IV SCH (17:15)
[2018-08-02 17:24] LABS: Basophils % (A) 0 %; Eosinophils # (A) 0.2 k/uL (0-0.7); Eosinophils % (A) 2 %; HCT 42.6 % (39.0-53.0); HGB 14.4 gm/dL (13.0-17.5); Lymphocytes # (A) 1.8 k/uL (1.0-4.8); Lymphocytes % (A) 20 %; MCH 30.7 pg (25.0-35.0); MCHC 33.9 g/dL (31.0-37.0); MCV 90.4 fL (80.0-100.0); Mean Platelet Volume 7.6; Monocytes # (A) 0.3 k/uL (0-1.0); Monocytes % (A) 4 %; Neutrophils # (A) 6.5 k/uL (1.3-7.7); Neutrophils % (A) 73 %; Platelet Count 246 k/uL (150-450); RBC 4.71 m/uL (4.30-5.90); RDW 13.1 % (11.5-15.5); WBC 8.9 k/uL (3.8-10.6)
[2018-08-02 17:33] LABS: ALT 18 U/L (21-72); AST 26 U/L (17-59); African American GFR (CKD) >90 (>60 ml/min/1.73 sqM); Albumin 4.8 g/dL (3.5-5.0); Alkaline Phosphatase 99 U/L (38-126); Anion Gap 11 mmol/L; Blood Urea Nitrogen 15 mg/dL (9-20); Calcium 9.6 mg/dL (8.4-10.2); Carbon Dioxide 25 mmol/L (22-30); Chloride 104 mmol/L (98-107); Glucose 109 mg/dL (74-99); Magnesium 1.9 mg/dL (1.6-2.3); Potassium 4.1 mmol/L (3.5-5.1); Sodium 140 mmol/L (137-145); Total Bilirubin 0.5 mg/dL (0.2-1.3); Total Protein 8.1 g/dL (6.3-8.2)
[2018-08-02 17:37] LABS: D-Dimer 0.26 mg/L FEU (<0.60); INR 0.9 (<1.2); Partial Thromboplastin Time 24.1 sec (22.0-30.0); Prothrombin Time 9.9 sec (9.0-12.0)
[2018-08-02] MEDS: HEPARIN SOD,PORK IN 0.45% NACL 25,000 UNIT in 0.45% NACL 1 250ML.BAG IV SCH (17:51)
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
--- NOTE | 2018-08-02 18:37 | XR ---
EXAMINATION TYPE: XR chest 2V DATE OF EXAM: 08/02/2018 COMPARISON: 02/19/2018 HISTORY: Short of breath TECHNIQUE: Frontal and lateral views of the chest are obtained. FINDINGS: Heart and mediastinum are normal. Lungs are clear. Diaphragm is normal. There are chest le ads. IMPRESSION: No active cardiopulmonary disease. Normal heart. No change.
[2018-08-02] MEDS ORDERED: NITROGLYCERIN SL TABS 0.4 MG TAB SUBLINGUAL PRN (19:30)
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
[2018-08-02 20:53] VITALS: BMI 27.2
[2018-08-02] MEDS: METOPROLOL TARTRATE 25 MG TAB PO SCH (21:02)
[2018-08-03] MEDS: NITROGLYCERIN OINT 1 INCH/GM PACKET TOPICAL SCH ×5 (00:03→23:43)
[2018-08-03 07:08] LABS: Cholesterol 214 mg/dL (<200); HDL Cholesterol 37 mg/dL (40-60); LDL Cholesterol,Calculated 159 mg/dL (0-99); Triglycerides 89 mg/dL (<150)
[2018-08-03 07:58] LABS: Basophils % (A) 1 %; Eosinophils # (A) 0.2 k/uL (0-0.7); Eosinophils % (A) 2 %; HCT 38.9 % (39.0-53.0); HGB 12.8 gm/dL (13.0-17.5); Lymphocytes # (A) 2.4 k/uL (1.0-4.8); Lymphocytes % (A) 37 %; MCH 30.3 pg (25.0-35.0); MCHC 32.8 g/dL (31.0-37.0); MCV 92.5 fL (80.0-100.0); Mean Platelet Volume 7.7; Monocytes # (A) 0.4 k/uL (0-1.0); Monocytes % (A) 7 %; Neutrophils # (A) 3.4 k/uL (1.3-7.7); Neutrophils % (A) 51 %; Platelet Count 229 k/uL (150-450); RBC 4.21 m/uL (4.30-5.90); RDW 13.5 % (11.5-15.5); WBC 6.6 k/uL (3.8-10.6)
[2018-08-03 08:16] LABS: ALT 20 U/L (21-72); AST 25 U/L (17-59); African American GFR (CKD) >90 (>60 ml/min/1.73 sqM); Albumin 4.1 g/dL (3.5-5.0); Alkaline Phosphatase 62 U/L (38-126); Anion Gap 7 mmol/L; Blood Urea Nitrogen 14 mg/dL (9-20); Carbon Dioxide 28 mmol/L (22-30); Chloride 108 mmol/L (98-107); Glucose 96 mg/dL (74-99); Magnesium 2.2 mg/dL (1.6-2.3); Potassium 4.2 mmol/L (3.5-5.1); Sodium 143 mmol/L (137-145); Total Bilirubin 0.5 mg/dL (0.2-1.3); Total Protein 7.3 g/dL (6.3-8.2)
[2018-08-03] MEDS: METOPROLOL TARTRATE 25 MG TAB PO SCH ×2 (09:13→22:16)
[2018-08-03] MEDS: ASPIRIN 325 MG TAB PO SCH (09:13)
--- NOTE | 2018-08-03 11:16 | CDI ---
Documentation Clarification Form Date: 08/03/2018 10:52:20 AM From: Genie Beasley RN CCDS Admit Date: 08/02/2018 7:30:00 PM Patient Name: Volodymyr Bryan V Visit Number: [id number] Discharge Date: ATTENTION: The Clinical Documentation Specialists (CDI) and [facility] Coding Staff appreciate your assistance in clarifying documentation. Please respond to the clarification below the line at the bottom and electronically sign. The CDI & [facility] Coding staff will review the response and follow-up if needed. Please note: Queries are made part of the Legal Health Record. If you have any questions, please contact the author of this message via ITS. Dr. Rena Velez Slightly elevated troponins most likely secondary to demand ischemia. Was documented in the H & P Patient History/Risk Factors: 58 year old male presents to the ED with sudden onset shortness of breath and fatigue. Medical history of Severe Atortic Stensosis Clinical Indicators: Troponin: 0.047; 0.499; 0.437; EKG Results: ST & T wave abnormality, consider inferolateral ischemia Prolonged QT Abnormal ECG Treatment: Heparin ivpb ; Nitro stat; Nitro bid Ointment Consult: Cardiology; Cardiovascular In order to capture the severity of condition and necessary documentation specificity, please clarify: Type of Infarction: NSTEMI NSTEMI Type 2 Unable to determine Other Condition, please specify (Last Revision: November 2016) MTDD
[2018-08-03 11:47] LABS: T4, Free (Free Thyroxine) 1.19 ng/dL (0.78-2.19)
[2018-08-03] MEDS: HEPARIN SOD,PORK IN 0.45% NACL 25,000 UNIT in 0.45% NACL 1 250ML.BAG IV SCH (12:06)
--- NOTE | 2018-08-03 13:05 | ECHOF ---
Referral Reason:Chest pain and cardiomyopathy MEASUREMENTS -------- HEIGHT: 180.3 cm WEIGHT: 85.7 kg BP: 102/57 IVSd: 1.4 cm (0.6 - 1.1) LVIDd: 4.4 cm (3.9 - 5.3) LVPWd: 1.3 cm (0.6 - 1.1) IVSs: 1.8 cm LVIDs: 2.6 cm LVPWs: 2.2 cm LAESV Index (A-L): 46.17 ml/m Ao Diam: 3.2 cm (2.0 - 3.7) AV Cusp: 1.1 cm (1.5 - 2.6) LA Diam: 3.2 cm (2.7 - 3.8) MV EXCURSION: 19.544 mm (> 18.000) MV EF SLOPE: 58 mm/s (70 - 150) EPSS: 0.5 cm MV E Jose Guadalupe: 0.63 m/s MV DecT: 233 ms MV A Jose Guadalupe: 0.94 m/s MV E/A Ratio: 0.67 AV maxP.49 mmHg AV meanP.64 mmHg AR PHT: 356 ms RAP: 5.00 mmHg RVSP: 22.11 mmHg FINDINGS -------- Sinus rhythm. This was a technically adequate study. The left ventricular size is normal. There is moderate concentric left ventricular hypertrophy. O verall left ventricular systolic function is normal with, an EF between 55 - 60 %. The right ventricle is normal in size. LA is severely dilated >40 ml/m2 The right atrial size is normal. Interatrial and interventricular septum intact. There is severe aortic valve sclerosis. There is moderate aortic regurgitation. There is severe a ortic stenosis present. Peak/mean gradient across the Aortic Valve is 108.49mmHg / 72.64mmHg. AOV is possible Bicuspid. The mitral valve is normal. Mild mitral regurgitation is present. Mild tricuspid regurgitation present. There is no evidence of pulmonary hypertension. The right v entricular systolic pressure, as measured by Doppler, is 22.11mmHg. There is no pulmonic regurgitation present. The aortic root size is normal. Normal inferior vena cava with normal inspiratory collapse consistent with estimated right atrial pre ssure of 5 mmHg. There is no pericardial effusion. CONCLUSIONS -------- 1. Sinus rhythm. 2. This was a technically adequate study. 3. The left ventricular size is normal. 4. There is moderate concentric left ventricular hypertrophy. 5. Overall left ventricular systolic function is normal with, an EF between 55 - 60 %. 6. LA is severely dilated >40 ml/m2 7. There is severe aortic valve sclerosis. 8. There is moderate aortic regurgitation. 9. There is severe aortic stenosis present. 10. Peak/mean gradient across the Aortic Valve is 108.49mmHg / 72.64mmHg. 11. AOV is possible Bicuspid. 12. Mild mitral regurgitation is present. 13. Mild tricuspid regurgitation present. 14. There is no evidence of pulmonary hypertension. 15. There is no pulmonic regurgitation present. 16. The aortic root size is normal. 17. Normal inferior vena cava with normal inspiratory collapse consistent with estimated right atrial pressure of 5 mmHg. 18. There is no pericardial effusion. LABORER TIN CAN: Pamela Robb RDCS
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
[2018-08-03] MEDS ORDERED: ALPRAZolam 0.5 MG TAB PO PRN (15:03)
[2018-08-03] MEDS ORDERED: ALPRAZolam 0.25 MG TAB PO PRN (15:03)
--- NOTE | 2018-08-03 16:39 | P.PN ---
Subjective Progress Note Date: 08/03/18 This is a 58-year-old gentleman who is known to have severe aortic stenosis was readmitted to the hospital yesterday with chest pain dizziness and evidence of atrial fibrillation. Patient converted back to sinus rhythm. Yesterday. He had significant ST-T abnormalities in the EKG on admission. His troponins values are mildly abnormal, but not consistent with acute coronary syndrome. Patient is feeling better. His echocardiogram showed preserved LV function. A peak gradient upon 8 and the mean of 72 was obtained across the aortic valve. Seen by a Cardec Surgeon. In view of chest pain and abnormal troponin, there is concern regarding progression of ischemic heart disease. Review of the old film showed some evidence of ostial stenosis involving the LAD. A request is made for possible IVUS to rule out significant disease in the LAD. Discuss it with Dr. Parnell. Patient is tentatively scheduled for cardiac cath tomorrow. Meanwhile patient will continue with current medical therapy that includes heparin and also on beta silvia. Objective - Vital Signs Vital signs: Vital Signs Temp 97.8 F 08/03/18 15:57 Pulse 56 L 08/03/18 15:57 Resp 16 08/03/18 15:57 BP 99/59 08/03/18 15:57 Pulse Ox 99 08/03/18 15:57 Intake & Output 08/02/18 08/03/18 08/03/18 18:59 06:59 18:59 Intake Total 74.29 498.104 Output Total 300 Balance -225.71 498.104 Weight 86.183 kg 86 kg Intake: Intake, IV Titration 74.29 138.104 Amount Heparin Sod,Pork in 0.45% 74.29 138.104 NaCl 25,000 unit In 0.45 % NaCl 1 250ml.bag @ 12 UNITS/KG/HR 10.342 mls/hr IV .Q24H [facility] Rx#: [id number] Oral 360 Output: Urine 300 Other: Voiding Method Toilet Toilet # Voids 1 2 - Exam GENERAL EXAM: Patient is alert and oriented and doesn't appear to be in any acute distress HEENT: Normocephalic. Normal reaction of pupils, equal size, normal range of extraocular motion. No erythema or exudates in the throat. NECK: No masses, no nuchal rigidity. CHEST: No chest wall deformity. LUNGS: Equal air entry with no crackles or wheeze. HEART: S1 and S2 normal with systolic murmur all over the precordium ABDOMEN: No hepatosplenomegaly, normal bowel sounds, no guarding or rigidity. SKIN: No rashes CENTRAL NERVOUS SYSTEM: No focal deficits. EXTREMITIES: No cyanosis, clubbing or edema. - Labs CBC & Chem 7: 08/03/18 06:22 08/03/18 06:22 Labs: Abnormal Lab Results - Last 24 Hours (Table) 08/02/18 08/02/18 08/02/18 Range/Units 17:11 17:11 23:54 RBC (4.30-5.90) m/uL Hgb (13.0-17.5) gm/dL Hct (39.0-53.0) % APTT (22.0-30.0) sec Chloride (98-107) mmol/L Glucose 109 H (74-99) mg/dL ALT 18 L (21-72) U/L Troponin I 0.047 H* 0.499 H* (0.000-0.034) ng/mL Cholesterol (<200) mg/dL LDL Cholesterol, Calc (0-99) mg/dL HDL Cholesterol (40-60) mg/dL TSH (0.465-4.680) mIU/L 08/02/18 08/03/18 08/03/18 Range/Units 23:54 06:22 06:22 RBC (4.30-5.90) m/uL Hgb (13.0-17.5) gm/dL Hct (39.0-53.0) % APTT 39.5 H (22.0-30.0) sec Chloride (98-107) mmol/L Glucose (74-99) mg/dL ALT (21-72) U/L Troponin I 0.437 H* (0.000-0.034) ng/mL Cholesterol 214 H (<200) mg/dL LDL Cholesterol, Calc 159 H (0-99) mg/dL HDL Cholesterol 37 L (40-60) mg/dL TSH (0.465-4.680) mIU/L 08/03/18 08/03/18 08/03/18 Range/Units 06:22 06:22 06:22 RBC 4.21 L (4.30-5.90) m/uL Hgb 12.8 L (13.0-17.5) gm/dL Hct 38.9 L (39.0-53.0) % APTT 54.7 H (22.0-30.0) sec Chloride 108 H (98-107) mmol/L Glucose (74-99) mg/dL ALT 20 L (21-72) U/L Troponin I (0.000-0.034) ng/mL Cholesterol (<200) mg/dL LDL Cholesterol, Calc (0-99) mg/dL HDL Cholesterol (40-60) mg/dL TSH (0.465-4.680) mIU/L 08/03/18 Range/Units 06:22 RBC (4.30-5.90) m/uL Hgb (13.0-17.5) gm/dL Hct (39.0-53.0) % APTT (22.0-30.0) sec Chloride (98-107) mmol/L Glucose (74-99) mg/dL ALT (21-72) U/L Troponin I (0.000-0.034) ng/mL Cholesterol (<200) mg/dL LDL Cholesterol, Calc (0-99) mg/dL HDL Cholesterol (40-60) mg/dL TSH 5.540 H (0.465-4.680) mIU/L Assessment and Plan (1) Paroxysmal atrial fibrillation Current Visit: Yes Status: Acute Code(s): I48.0 - PAROXYSMAL ATRIAL FIBRILLATION SNOMED Code(s): 530686872 (2) Severe aortic valve stenosis Current Visit: No Status: Chronic Code(s): I35.0 - NONRHEUMATIC AORTIC (VALVE) STENOSIS SNOMED Code(s): 01003285 Plan: This patient is admitted with dizziness and atrial fibrillation. Back in sinus rhythm. Has severe aortic stenosis by echo. Previous cardiac catheterization showed coronary artery disease with a suspicious lesion in the ostium of the left Anterior descending coronary artery. Repeat Cath is being scheduled for tomorrow. Patient will undergo aortic valve replacement, afterwards.
[2018-08-03 18:56] LABS: Hemoglobin A1C 5.6 % (4.0-6.0)
--- NOTE | 2018-08-03 20:31 | P.PN ---
Subjective Progress Note Date: 08/03/18 (delayed charting seen at 1145) Principal diagnosis: chest pain Patient is a 58-year-old male with past medical history of severe aortic stenosis, arthritis, and prior syncopal event presented to the emergency department with complaints of chest pain. In the emergency department patient was noted to be in A. fib with rapid ventricular response. He was also noted to have slightly positive troponin at 0.047. Cardiology was contacted. They recommended metoprolol and heparin drip. He subsequently converted to normal sinus rhythm. He was admitted for further monitoring. He was seen by cardiovascular thoracic who recommended aortic valve replacement. He will need a repeat cardiac catheterization prior to this procedure. Patient seen and examined at bedside. Chest pain-free. Does not want to be on long-term anticoagulation. No nausea or vomiting. No shortness of breath. In agreement with surgery. Objective - Vital Signs Vital signs: Vital Signs Temp 97.8 F 08/03/18 15:57 Pulse 56 L 08/03/18 15:57 Resp 16 08/03/18 15:57 BP 99/59 08/03/18 15:57 Pulse Ox 99 08/03/18 15:57 Intake & Output 08/03/18 08/03/18 08/04/18 06:59 18:59 06:59 Intake Total 74.29 858.104 Output Total 300 Balance -225.71 858.104 Weight 86 kg Intake: Intake, IV Titration 74.29 138.104 Amount Heparin Sod,Pork in 0.45% 74.29 138.104 NaCl 25,000 unit In 0.45 % NaCl 1 250ml.bag @ 12 UNITS/KG/HR 10.342 mls/hr IV .Q24H [facility] Rx#: [id number] Oral 720 Output: Urine 300 Other: Voiding Method Toilet Toilet # Voids 1 2 - Exam General: non toxic, no distress, appears at stated age Derm: warm, dry Head: atraumatic, normocephalic, symmetric Eyes: EOMI, no lid lag, anicteric sclera Mouth: no lip lesion, mucus membranes moist Cardiovascular: S1 S2 with grade 4 systolic ejection murmur, positive posterior tibial pulse bilateral, Lungs: CTA bilateral, no rhonchi, no rales , no accessory muscle use Abdominal: soft, nontender to palpation, no guarding, no appreciable organomegaly Ext: no gross muscle atrophy, no edema, no contractures Neuro: CN II-XI grossly intact, no focal neuro deficits Psych: Alert, oriented, appropriate affect - Labs CBC & Chem 7: 08/03/18 06:22 08/03/18 06:22 Labs: Abnormal Lab Results - Last 24 Hours (Table) 08/02/18 08/02/18 08/03/18 Range/Units 23:54 23:54 06:22 RBC (4.30-5.90) m/uL Hgb (13.0-17.5) gm/dL Hct (39.0-53.0) % APTT 39.5 H (22.0-30.0) sec Chloride (98-107) mmol/L ALT (21-72) U/L Troponin I 0.499 H* 0.437 H* (0.000-0.034) ng/mL Cholesterol (<200) mg/dL LDL Cholesterol, Calc (0-99) mg/dL HDL Cholesterol (40-60) mg/dL TSH (0.465-4.680) mIU/L 08/03/18 08/03/18 08/03/18 Range/Units 06:22 06:22 06:22 RBC 4.21 L (4.30-5.90) m/uL Hgb 12.8 L (13.0-17.5) gm/dL Hct 38.9 L (39.0-53.0) % APTT 54.7 H (22.0-30.0) sec Chloride (98-107) mmol/L ALT (21-72) U/L Troponin I (0.000-0.034) ng/mL Cholesterol 214 H (<200) mg/dL LDL Cholesterol, Calc 159 H (0-99) mg/dL HDL Cholesterol 37 L (40-60) mg/dL TSH (0.465-4.680) mIU/L 08/03/18 08/03/18 Range/Units 06:22 06:22 RBC (4.30-5.90) m/uL Hgb (13.0-17.5) gm/dL Hct (39.0-53.0) % APTT (22.0-30.0) sec Chloride 108 H (98-107) mmol/L ALT 20 L (21-72) U/L Troponin I (0.000-0.034) ng/mL Cholesterol (<200) mg/dL LDL Cholesterol, Calc (0-99) mg/dL HDL Cholesterol (40-60) mg/dL TSH 5.540 H (0.465-4.680) mIU/L Microbiology - Last 24 Hours (Table) 08/03/18 12:05 Nasal Screen MRSA/MSSA - Preliminary Nasal Swab Assessment and Plan Assessment: Atrial fibrillation with rapid ventricular response -Converted to normal sinus rhythm -Maintain heparin drip and beta silvia therapy Symptomatic severe aortic stenosis -Cardiovascular recommendations appreciated, recommend cardiac catheterization to determine what type of surgery will be recommended -Cardiology recommendations appreciated Non-STEMI, type II and stress-induced secondary to A. fib with rapid ventricular response -Await cardiac cath in a.m. -Aspirin -Heparin drip -Beta silvia -Statin Dyslipidemia -Statin therapy Mild CAD - repeat cath in AM - ASA, statin, BB DVT prophylaxis: Heparin drip Discussed with: Patient Anticipated discharge: 1-[address]: home A total of 25 minutes was spent on the care of this complex patient more than 50% of the time was spent in counseling and care coordination.
[2018-08-03] MEDS: MUPIROCIN 2% OINT 22 GM TUBE TOPICAL SCH (22:26)
[2018-08-04] MEDS: NITROGLYCERIN OINT 1 INCH/GM PACKET TOPICAL SCH ×3 (05:58→17:01)
[2018-08-04] MEDS ORDERED: ASPIRIN 325 MG TAB PO ONE (06:00)
[2018-08-04] MEDS ORDERED: ATORVASTATIN 80 MG TAB PO ONE (06:00)
[2018-08-04] MEDS ORDERED: SODIUM CHLORIDE 0.9% 1,000 ML in EMPTY BAG 1 BAG IV ONE (06:00)
[2018-08-04] MEDS: HEPARIN SOD,PORK IN 0.45% NACL 25,000 UNIT in 0.45% NACL 1 250ML.BAG IV SCH (06:09)
--- NOTE | 2018-08-04 08:38 | P.PN ---
Subjective Progress Note Date: 08/04/18 Principal diagnosis: Severe aortic stenosis, new-onset paroxysmal atrial fibrillation this admission, troponin elevation and EKG changes likely from aortic stenosis. History of co ronary artery disease, hypertension, hyperlipidemia, family history of premature coronary artery disease Patient's currently sitting up in bed in no acute distress. Denies chest pain or shortness of breath. He is concerned about the need for a second heart catheterization, explanation given that we need to be sure there has not been progression of coronary artery disease necessitating coronary bypass in addition to aortic valve replacement. He states understanding and is agreeable to plan. Objective - Vital Signs Vital signs: Vital Signs Temp 98 F 08/04/18 04:00 Pulse 56 L 08/04/18 04:00 Resp 16 08/04/18 04:00 BP 135/67 08/04/18 04:00 Pulse Ox 99 08/04/18 04:00 Intake & Output 08/03/18 08/04/18 08/04/18 18:59 06:59 18:59 Intake Total 858.104 533.332 Balance 858.104 533.332 Weight 85.7 kg Intake: Intake, IV Titration 138.104 233.332 Amount Heparin Sod,Pork in 0.45% 138.104 233.332 NaCl 25,000 unit In 0.45 % NaCl 1 250ml.bag @ 12 UNITS/KG/HR 10.342 mls/hr IV .Q24H [facility] Rx#: [id number] Oral 720 300 Other: Voiding Method Toilet # Voids 2 2 - Constitutional General appearance: Present: cooperative, no acute distress - Respiratory Details: Lung sounds clear. Respirations even, non-labored. Currently on room air with oxygen saturation 97%. Able to achieve 3500 mL on his incentive spirometry. Strong cough. - Cardiovascular Details: S1/S2 present. Loud systolic murmur present. Slow but regular rate/rhythm, sinus bradycardia on telelmetry. Palpable peripheral pulses bilaterally. No edema present. No calf pain or tenderness noted. - Gastrointestinal Gastrointestinal Comment(s): Abdomen soft, nontender, nondistended. Active bowel sounds 4 quadrants. Currently nothing by mouth for heart cath this morning. - Genitourinary Genitourinary Comment(s): Continues to void clear, yellow urine. - Integumentary Integumentary Comment(s): Skin is warm and dry with evidence of good perfusion. - Neurologic Neurologic: Present: CNII-XII intact - Musculoskeletal Musculoskeletal: Present: gait normal, strength equal bilaterally - Psychiatric Psychiatric: Present: A&O x's 3, appropriate affect, intact judgment & insight - Allied health notes Allied health notes reviewed: nursing - Labs CBC & Chem 7: 08/03/18 06:22 08/03/18 06:22 Labs: Abnormal Lab Results - Last 24 Hours (Table) 08/03/18 08/04/18 Range/Units 06:22 06:10 APTT 55.1 H (22.0-30.0) sec TSH 5.540 H (0.465-4.680) mIU/L Microbiology - Last 24 Hours (Table) 08/03/18 12:05 Nasal Screen MRSA/MSSA - Preliminary Nasal Swab Assessment and Plan Assessment: 1. Paroxysmal afib with rapid ventricular response on admission, currently sinus bradycardia 2. Severe aortic stenosis, peak/mean gradient on TTE from yesterday 108.49 mmHg/72.64 mmHg; valve area 0.8 cm2 on ELI with history of syncopal episode in February 2018 3. Coronary artery disease 4. History of HTN 5. Hyperlipidemia 6. Family history of premature coronary artery disease Plan: 1. The patient is nothing by mouth for heart catheterization this morning for IVUS to determine extent of proximal LAD disease in order to determine if bypass is needed in addition to valve replacement. 2. Continue open heart preoperative teaching 3. Encourage incentive spirometry use 4. Increase activity, ambulate as tolerated 5. Our plan is for bioprosthetic aortic valve replacement plus or minus bypass surgery in the very near future, deep to be determined. 6. Once heart catheterization is completed patient may be discharged to home from our standpoint to return for surgery after dental clearance has been obtained. Patient states his dentist already said he will clear him whenever surgery has been determined. We tried to call the dentist office yesterday and no one answered the phone. If the patient has been discharged we will call him on Monday with a surgery date. 7. Continue medical management per primary care services, cardiology 8. Will continue to follow. Time with Patient: Greater than 30
[2018-08-04] MEDS: METOPROLOL TARTRATE 25 MG TAB PO SCH ×2 (08:46→20:49)
[2018-08-04] MEDS: ASPIRIN 325 MG TAB PO SCH ×2 (08:46→08:49)
[2018-08-04] MEDS: MUPIROCIN 2% OINT 22 GM TUBE TOPICAL SCH ×2 (08:47→20:49)
--- NOTE | 2018-08-04 12:27 | PN ---
PROGRESS NOTE Mr. Volodymyr Bryan is a gentleman with severe aortic stenosis, who refused all treatment and came back to the hospital with a episode of syncope and has now been advised to have aortic valve replacement. He was seen by Dr. Real who recommended they repeat cardiac cath. There was a concern that there may be an LAD plaque and he recommended IVUS or FFR. I discussed this with the patient and I explained to him that I will speak to Dr. Real and perform the procedure on Monday, which will be a coronary angiography of all coronary arteries and also we will perform either intravascular ultrasound or more likely an FFR of the LAD where there is a question of plaque. This will determine the kind of surgery he should potentially have, whether he should have any bypass surgery or whether it should be a pure valve replacement. It appears that he has severe aortic stenosis on the basis of a transesophageal echo from February. It could be a quadry cuspid aortic valve but not a bicuspid according to the report. I explained to the patient and that we will feed him today, increase activity, continue same medications and I will perform coronary angiography with IVUS or FFR on Monday. The rationale, risks, benefits and options were carefully explained to the patient and family. They understand and wish to proceed with the procedure. MMODL / IJN: [id number] /
--- NOTE | 2018-08-04 17:07 | P.PN ---
Subjective Progress Note Date: 08/04/18 (Delayed charting seen at 12:15) Principal diagnosis: chest pain Patient is a 58-year-old male with past medical history of severe aortic stenosis, arthritis, and prior syncopal event presented to the emergency department with complaints of chest pain. In the emergency department patient was noted to be in A. fib with rapid ventricular response. He was also noted to have slightly positive troponin at 0.047. Cardiology was contacted. They recommended metoprolol and heparin drip. He subsequently converted to normal sinus rhythm. He was admitted for further monitoring. He was seen by cardiovascular thoracic who recommended aortic valve replacement. He will need a repeat cardiac catheterization prior to this procedure plan is for Monday Patient seen and examined at bedside. Denies any chest pain, shortness breath, nausea, vomiting, or diarrhea. Has complaints of some neck and back pain that he thinks is secondary to his pillow. No other complaints currently. Objective - Vital Signs Vital signs: Vital Signs Temp 98.2 F 08/04/18 12:26 Pulse 69 08/04/18 12:26 Resp 16 08/04/18 12:26 BP 92/58 08/04/18 12:26 Pulse Ox 100 08/04/18 12:26 Intake & Output 08/03/18 08/04/18 08/04/18 18:59 06:59 18:59 Intake Total 858.104 533.332 Balance 858.104 533.332 Weight 85.7 kg Intake: Intake, IV Titration 138.104 233.332 Amount Heparin Sod,Pork in 0.45% 138.104 233.332 NaCl 25,000 unit In 0.45 % NaCl 1 250ml.bag @ 12 UNITS/KG/HR 10.342 mls/hr IV .Q24H [facility] Rx#: [id number] Oral 720 300 Other: Voiding Method Toilet Toilet # Voids 2 2 - Exam General: non toxic, no distress, appears at stated age Derm: warm, dry Head: atraumatic, normocephalic, symmetric Eyes: EOMI, no lid lag, anicteric sclera Mouth: no lip lesion, mucus membranes moist Cardiovascular: S1 S2 with grade 4 systolic ejection murmur, positive posterior tibial pulse bilateral, Lungs: CTA bilateral, no rhonchi, no rales , no accessory muscle use Ext: no gross muscle atrophy, no edema, no contractures Psych: Alert, oriented, appropriate affect - Labs CBC & Chem 7: 08/03/18 06:22 08/03/18 06:22 Labs: Abnormal Lab Results - Last 24 Hours (Table) 08/04/18 Range/Units 06:10 APTT 55.1 H (22.0-30.0) sec Microbiology - Last 24 Hours (Table) 08/03/18 12:05 Nasal Screen MRSA/MSSA - Preliminary Nasal Swab Assessment and Plan Assessment: Paroxysmal Atrial fibrillation with rapid ventricular response -Converted to normal sinus rhythm -beta silvia therapy -heaprin gtt Symptomatic severe aortic stenosis -Cardiovascular recommendations appreciated, recommend cardiac catheterization for assessment of coronary artery disease, home after cath, dental clearance, then surgery in the near future. -Cardiology recommendations appreciated Non-STEMI, type II and stress-induced secondary to A. fib with rapid ventricular response -Await cardiac 08/06 -Aspirin -Heparin drip -Beta silvia -Statin Dyslipidemia -Statin therapy Mild CAD - repeat cath in AM - ASA, statin, BB History of hypertension DVT prophylaxis: Heparin drip Discussed with: Patient Anticipated discharge: [address]: home A total of 25 minutes was spent on the care of this complex patient more than 50% of the time was spent in counseling and care coordination.
[2018-08-05] MEDS: NITROGLYCERIN OINT 1 INCH/GM PACKET TOPICAL SCH ×3 (00:14→12:18)
[2018-08-05] MEDS: ATORVASTATIN 40 MG TAB PO SCH (08:38)
[2018-08-05] MEDS: METOPROLOL TARTRATE 25 MG TAB PO SCH ×2 (08:38→22:10)
[2018-08-05] MEDS: ASPIRIN 325 MG TAB PO SCH (08:38)
--- NOTE | 2018-08-05 09:50 | P.PN ---
Subjective Progress Note Date: 08/05/18 Principal diagnosis: Severe aortic stenosis, new-onset paroxysmal atrial fibrillation this admission, troponin elevation and EKG changes likely from aortic stenosis. History of co ronary artery disease, hypertension, hyperlipidemia, family history of premature coronary artery disease Patient's currently sitting up in bed in no acute distress. Denies chest pain or shortness of breath. Has been ambulating in the hallway without difficulty. Anticipating heart catheterization tomorrow to determine any progression of coronary artery disease. No new concerns. Objective - Vital Signs Vital signs: Vital Signs Temp 97.7 F 08/05/18 08:44 Pulse 58 L 08/05/18 08:44 Resp 16 08/05/18 08:44 BP 100/59 08/05/18 08:44 Pulse Ox 98 08/05/18 08:44 Intake & Output 08/04/18 08/05/18 08/05/18 18:59 06:59 18:59 Intake Total 700 300 Balance 700 300 Weight 84.6 kg Intake: Oral 700 300 Other: Voiding Method Toilet Toilet # Voids 1 2 2 - Constitutional General appearance: Present: cooperative, no acute distress - Respiratory Details: Lung sounds clear. Respirations even, non-labored. Currently on room air with oxygen saturation 98%. Able to achieve 3500 mL on his incentive spirometry. Strong cough. - Cardiovascular Details: S1/S2 present. Loud systolic murmur present. Slow but regular rate/rhythm, sinus bradycardia on telelmetry. Palpable peripheral pulses bilaterally. No edema present. No calf pain or tenderness noted. - Gastrointestinal Gastrointestinal Comment(s): Abdomen soft, nontender, nondistended. Active bowel sounds 4 quadrants. Tolerating diet. - Genitourinary Genitourinary Comment(s): Continues to void clear, yellow urine. - Integumentary Integumentary Comment(s): Skin is warm and dry with evidence of good perfusion. - Neurologic Neurologic: Present: CNII-XII intact - Musculoskeletal Musculoskeletal: Present: gait normal - Psychiatric Psychiatric: Present: A&O x's 3, appropriate affect, intact judgment & insight - Allied health notes Allied health notes reviewed: nursing - Labs CBC & Chem 7: 08/03/18 06:22 08/03/18 06:22 Labs: Microbiology - Last 24 Hours (Table) 06/21/19 12:05 Nasal Screen MRSA/MSSA - Final Nasal Swab Assessment and Plan Assessment: 1. Paroxysmal afib with rapid ventricular response on admission, currently sinus bradycardia 2. Severe aortic stenosis, peak/mean gradient on TTE from 08/03/18 108.49 mmHg/72.64 mmHg; valve area 0.8 cm2 on ELI with history of syncopal episode in February 2018 3. Coronary artery disease 4. History of HTN 5. Hyperlipidemia 6. Family history of premature coronary artery disease Plan: 1. Anticipate heart catheterization tomorrow, 08/06/2018 to determine if progression in coronary artery disease is present. 2. Continue aspirin, statin, beta silvia therapy. 3. Continue open heart preoperative teaching 4. Encourage incentive spirometry use 5. Increase activity, ambulate as tolerated 6. Our plan is for bioprosthetic aortic valve replacement plus or minus bypass surgery in the very near future, deep to be determined. 7. Once heart catheterization is completed patient may be discharged to home from our standpoint to return for surgery after dental clearance has been obtained. Patient states his dentist already said he will clear him whenever surgery has been determined. We tried to call the dentist office Monday and no one answered the phone. 8. Continue medical management per primary care services, cardiology 9. Will continue to follow. Time with Patient: Greater than 30
[2018-08-05] MEDS ORDERED: SODIUM CHLORIDE 0.9% 1,000 ML in EMPTY BAG 1 BAG IV ONE (11:08)
[2018-08-05] MEDS: MUPIROCIN 2% OINT 22 GM TUBE TOPICAL SCH ×2 (12:18→20:45)
--- NOTE | 2018-08-05 13:13 | P.PN ---
Subjective This is a pleasant 58-year-old male currently in the hospital secondary to dizziness and is awaiting further evaluation for aortic valve s urgery. He is scheduled to undergo cardiac catheterization tomorrow to assess an area of concern in the LAD. He is seen and examined resting comfortably in bed in no acute distress. He denies symptoms of chest pain, shortness of breath, dizziness or palpitations. He has been up and walking in the halls without difficulty. Blood pressure 106/68 heart rate 48 afebrile maintaining oxygen saturation on room air. Currently maintained on Lopressor 25 mg twice a day and atorvastatin 40 mg daily. GENERAL: Well-appearing, well-nourished and in no acute distress. NECK: Supple without JVD or thyromegaly. LUNGS: Breath sounds clear to auscultation bilaterally. Respiration equal and unlabored. No wheezes, rales or rhonchi. HEART: Regular rate and rhythm with significant systolic ejection murmur heard at all listening points, no, rubs or gallops. S1 and S2 heard. EXTREMITIES: Normal range of motion, no edema. No clubbing or cyanosis. Peripheral pulses intact. ASSESSMENT Aortic stenosis, severe Paroxysmal atrial fibrillation currently maintaining sinus mechanism PLAN Patient is scheduled to undergo cardiac catheterization tomorrow to assess suspicious plaque/lesion of LAD and undergo IVUS/FFR for further stratification before valve surgery. NPO after midnight tonight. I have discussed the risks, benefits and alternative therapies for the above-mentioned procedure and for both sedation/analgesia as well as necessary blood product administration, if indicated, as they pertain to this patient. The patient has indicated understanding and acceptance of the risks and procedures discussed. Discontinue Nitropaste and decrease aspirin 81 mg daily. Nurse Practitioner note has been reviewed, I agree with a documented findings and plan of care. Patient was seen and examined. Objective - Vital Signs Vital signs: Vital Signs Temp 98.2 F 08/05/18 12:00 Pulse 58 L 08/05/18 12:00 Resp 16 08/05/18 12:00 BP 106/60 08/05/18 12:00 Pulse Ox 98 08/05/18 12:00 Intake & Output 08/04/18 08/05/18 08/05/18 18:59 06:59 18:59 Intake Total 700 300 Balance 700 300 Weight 84.6 kg Intake: Oral 700 300 Other: Voiding Method Toilet Toilet # Voids 1 2 2 - Labs CBC & Chem 7: 08/03/18 06:22 08/03/18 06:22 Labs: Microbiology - Last 24 Hours (Table) 08/03/18 12:05 Nasal Screen MRSA/MSSA - Final Nasal Swab
--- NOTE | 2018-08-05 14:52 | P.PN ---
Subjective Progress Note Date: 08/05/18 (Delayed charting seen at 10:30) Principal diagnosis: chest pain Patient is a 58-year-old male with past medical history of severe aortic stenosis, arthritis, and prior syncopal event presented to the emergency department with complaints of chest pain. In the emergency department patient was noted to be in A. fib with rapid ventricular response. He was also noted to have slightly positive troponin at 0.047. Cardiology was contacted. They recommended metoprolol and heparin drip. He subsequently converted to normal sinus rhythm. He was admitted for further monitoring. He was seen by cardiovascular thoracic who recommended aortic valve replacement. He will need a repeat cardiac catheterization prior to this procedure plan is for Monday. Patient seen and examined at bedside. Feeling well. Denies any chest pain, shortness breath, nausea, or vomiting. Objective - Vital Signs Vital signs: Vital Signs Temp 98.2 F 08/05/18 12:00 Pulse 58 L 08/05/18 12:00 Resp 16 08/05/18 12:00 BP 106/60 08/05/18 12:00 Pulse Ox 98 08/05/18 12:00 Intake & Output 08/04/18 08/05/18 08/05/18 18:59 06:59 18:59 Intake Total 700 300 Balance 700 300 Weight 84.6 kg Intake: Oral 700 300 Other: Voiding Method Toilet Toilet # Voids 1 2 2 - Exam General: non toxic, no distress, appears at stated age Derm: warm, dry Head: atraumatic, normocephalic, symmetric Eyes: EOMI, no lid lag, anicteric sclera Cardiovascular: S1 S2 with grade 4 systolic ejection murmur, positive posterior tibial pulse bilateral, Lungs: CTA bilateral, no rhonchi, no rales , no accessory muscle use Ext: no gross muscle atrophy, no edema, no contractures Psych: Alert, oriented, appropriate affect - Labs CBC & Chem 7: 08/03/18 06:22 08/03/18 06:22 Labs: Microbiology - Last 24 Hours (Table) 08/03/18 12:05 Nasal Screen MRSA/MSSA - Final Nasal Swab Assessment and Plan Assessment: Symptomatic severe aortic stenosis -Cardiovascular recommendations appreciated, recommend cardiac catheterization for assessment of coronary artery disease, home after cath, dental clearance, then surgery in the near future. -Cardiology recommendations appreciated Paroxysmal Atrial fibrillation with rapid ventricular response -Converted to normal sinus rhythm -beta silvia therapy -heaprin gtt completed Non-STEMI, type II and stress-induced secondary to A. fib with rapid ventricular response -Await cardiac 08/06 -Aspirin -Heparin drip completed -Beta silvia -Statin Dyslipidemia -Statin therapy Mild CAD - repeat cath in AM - ASA, statin, BB History of hypertension DVT prophylaxis: Heparin drip Discussed with: Patient Anticipated discharge: [address]: home A total of 25 minutes was spent on the care of this complex patient more than 50% of the time was spent in counseling and care coordination.
[2018-08-06] MEDS: MUPIROCIN 2% OINT 22 GM TUBE TOPICAL SCH (06:30)
[2018-08-06] MEDS: ATORVASTATIN 40 MG TAB PO SCH (06:30)
[2018-08-06 06:32] LABS: HCT 40.7 % (39.0-53.0); HGB 13.2 gm/dL (13.0-17.5); MCH 30.1 pg (25.0-35.0); MCHC 32.5 g/dL (31.0-37.0); MCV 92.6 fL (80.0-100.0); Mean Platelet Volume 7.2; Platelet Count 226 k/uL (150-450); RDW 12.9 % (11.5-15.5); WBC 7.1 k/uL (3.8-10.6)
[2018-08-06 06:39] LABS: African American GFR (CKD) >90 (>60 ml/min/1.73 sqM); Anion Gap 9 mmol/L; Blood Urea Nitrogen 15 mg/dL (9-20); Calcium 9.2 mg/dL (8.4-10.2); Carbon Dioxide 27 mmol/L (22-30); Chloride 105 mmol/L (98-107); Glucose 94 mg/dL (74-99); Potassium 4.3 mmol/L (3.5-5.1); Sodium 141 mmol/L (137-145)
[2018-08-06 06:48] LABS: Glucose,Whole Blood 87 mg/dL (75-99)
[2018-08-06] MEDS: METOPROLOL TARTRATE 25 MG TAB PO SCH (07:16)
[2018-08-06] MEDS ORDERED: ASPIRIN 81 MG PO STA (07:37)
[2018-08-06 08:11] VITALS: TEMP 97.8
[2018-08-06] MEDS ORDERED: ASPIRIN 81 MG PO SCH (09:00)
--- NOTE | 2018-08-06 09:32 | P.PN ---
Subjective Progress Note Date: 08/06/18 Principal diagnosis: Severe aortic stenosis, new-onset paroxysmal atrial fibrillation this admission, troponin elevation and EKG changes likely from aortic stenosis. History of co ronary artery disease, syncopal episode in February 2018, hypertension, hyperlipidemia, and family history of premature coronary artery disease with his dad being diagnosed in his 40s with coronary artery disease. Patient is currently laying in bed on the cardiac stepdown unit in no acute distress. Denies any complaints of shortness of breath. He has been nothing by mouth since midnight as he is scheduled for a cardiac catheterization with IVUS this morning at 9 AM. His is at his bedside. Currently on room air with oxygen saturations 98% and achieving 3500 mL on his incentive spirometry. Objective - Vital Signs Vital signs: Vital Signs Temp 97.8 F 08/06/18 08:03 Pulse 58 L 08/06/18 08:03 Resp 18 08/06/18 08:03 BP 131/77 08/06/18 08:03 Pulse Ox 98 08/06/18 08:03 Intake & Output 08/05/18 08/06/18 08/06/18 18:59 06:59 18:59 Intake Total 300 400 Output Total 300 2 Balance 0 398 Weight 84.3 kg Intake: Oral 300 400 Output: Urine 300 2 Other: Voiding Method Toilet Toilet Toilet # Voids 1 1 - Constitutional General appearance: Present: cooperative, no acute distress - Respiratory Details: Lung sounds with few scattered crackles throughout. Respirations are symmetrical and nonlabored. Oxygen saturation are 98% on room air. Achieving 3500 mL on his incentive spirometry. - Cardiovascular Details: Regular rhythm and rate. S1 and S2 present, negative for S3 or gallop. Positive systolic murmur 3/6 heard best to his right sternal border. No edema present. Remote telemetry showing sinus bradycardia heart rate 49. - Gastrointestinal Gastrointestinal Comment(s): Abdomen is soft, nontender and nondistended. Active bowel sounds all 4 abdominal quadrants. No guarding or rigidity. No organomegaly. - Genitourinary Genitourinary Comment(s): Voiding clear yellow urine. - Integumentary Integumentary Comment(s): Skin is warm and dry. No clubbing or cyanosis is present. No rash or abnormal pigmentation is present. - Neurologic Neurologic: Present: CNII-XII intact - Musculoskeletal Musculoskeletal: Present: gait normal, strength equal bilaterally - Psychiatric Psychiatric: Present: A&O x's 3, appropriate affect, intact judgment & insight - Allied health notes Allied health notes reviewed: nursing - Labs CBC & Chem 7: 08/06/18 06:01 08/06/18 06:01 Assessment and Plan Assessment: 1. Paroxysmal afib with rapid ventricular response on admission, currently sinus bradycardia 2. Severe aortic stenosis, peak/mean gradient on TTE from 08/03/18 108.49 mmHg/72.64 mmHg; valve area 0.8 cm2 on ELI with history of syncopal episode in February 2018 3. Coronary artery disease 4. History of HTN 5. Hyperlipidemia 6. Family history of premature coronary artery disease 7. History of syncopal episode in February 2018 8. Obesity 9. History of hypospadias as an Plan: 1. Heart catheterization with IVUS Scheduled today at 9:00 am. 2. Continue aspirin, statin, beta silvia. 3. Continue open heart preoperative teaching. 4. Encourage incentive spirometry use every hour while awake. 5. Increase activity, ambulate as tolerated. 6. Our plan is for bioprosthetic aortic valve replacement with the possibility of coronary artery bypass surgery heart catheterization results pending. Once the heart catheterization results have been reviewed a date will be confirmed for open heart surgery. 7. Once heart catheterization is completed, the patient may be discharged to home from our cardiothoracic surgery standpoint to return for surgery after dental clearance has been obtained. 8. Continue medical management per primary care services, cardiology 9. More recommendations to follow based on patient's clinical course. Time with Patient: Greater than 30
[2018-08-06] MEDS ORDERED: LIDOCAINE 1% INJ 10MG/ML (20 ML MDV) ONE (11:41)
[2018-08-06] MEDS ORDERED: MIDAZOLAM (PF) 2 MG/2 ML VIAL IVP ONE ×2 (12:03→12:16)
[2018-08-06] MEDS ORDERED: HEPARIN SODIUM 1,000 UN/ML (10ML VL) ONE (12:03)
[2018-08-06] MEDS ORDERED: LIDOCAINE 1% INJ 10MG/ML (20 ML MDV) SQ ONE ×2 (12:03→12:15)
[2018-08-06] MEDS ORDERED: IV FLUID CONTINUATION 1,000 ML IV ONE (12:04)
[2018-08-06] MEDS ORDERED: HYDROmorphone 1 MG/ML 1 ML SYRINGE ONE (12:16)
[2018-08-06] MEDS ORDERED: HYDROmorphone 1 MG/ML 1 ML SYRINGE IVP ONE (12:19)
[2018-08-06] MEDS: NITROGLYCERIN 1000MCG/10ML SYRINGE INTRACORON ONE ×2 (12:29→12:34)
[2018-08-06] MEDS ORDERED: IOPAMIDOL-370 100ML BTL INJ ONE (12:48)
[2018-08-06] MEDS ORDERED: RX INFO: IV CONTRAST WAS GIVEN 1 EACH MISC MISCELLANE PRN (12:53)
[2018-08-06] MEDS ORDERED: SODIUM CHLORIDE 0.9% 1,000 ML IV SCH (13:00)
--- NOTE | 2018-08-06 13:32 | CC ---
CARDIAC CATHETERIZATION REPORT CORONARY ANGIOGRAPHY AND INTRAVASCULAR ULTRASOUND: DATE OF SERVICE: 08/06/2018. PROCEDURES: 1. Coronary angiography. 2. Intravascular ultrasound of LAD and circumflex. PERFORMED BY: Dr. Zafar Lacey. Moderate conscious sedation time was 48 minutes. The patient was administered Versed and Dilaudid. Oxygen saturation, hemodynamics and EKG were monitored closely. CLINICAL INFORMATION: Mr. Volodymyr Bryan is a gentleman with a known diagnosis of aortic stenosis. In February, he presented with symptoms of heart failure, had significant aortic stenosis, was advised aortic valve replacement, but he did not follow up and comes back with a non ST elevation MO. Prior to performing aortic valve replacement, Dr. Real felt that he had significant plaque in the ostium of the LAD and proximal circumflex and therefore he advised an IVUS and repeat coronary angiography. He was brought in for the procedure electively. Risks, benefits, options and rationale were explained. PROCEDURE NOTE: I initially attempted access from the right radial, but I had difficulty because of spasm. I switched over to the right femoral. We are using a micropuncture needle technique. A 6-Indonesian introducer was placed in the right radial artery. I performed coronary angiography using a standard right Red diagnostic catheter. Following this, I gave 5500 units of heparin and proceeded to perform intravascular ultrasound of the left system. A 3.5 left Red guide catheter was used to cannulate the left coronary artery. A run-through wire was advanced and positioned in the mid/distal LAD. Intravascular ultrasound was performed of the ostium of the LAD and the proximal portion of the LAD and left main. I then advanced the wire into the circumflex distally. I then performed intravascular ultrasound of the 2 lesions in the circumflex system. Pullback images were obtained. The patient tolerated procedure well. He received intracoronary nitroglycerin before each IVUS run. The sheath was then taken out and Angio-Seal device used to secure hemostasis. There was good hemostasis of both the radial and femoral sites. The patient was sent to the room in a stable condition. Findings were discussed with the patient and family. I also spoke to Dr. Real. The patient has a significant 70% lesion in the ostium of the LAD and a 65% to 70% in the mid circumflex in 2 areas which are tandem lesions making this a significant stenosis. The patient will require aortocoronary bypass surgery of 2 vessels, LAD and circumflex and aortic valve replacement. This was explained to the patient, family and also spoke to Dr. Real. CORONARY ANGIOGRAPHY FINDINGS: THE RIGHT CORONARY ARTERY: Technically a codominant vessel, tortuous has minor irregularities and distally bifurcates into a small PLV and the large PDA, which has no significant disease. LEFT MAIN CORONARY ARTERY: Short patent disease-free vessel which bifurcates into LAD and circumflex. LEFT ANTERIOR DESCENDING CORONARY ARTERY: Good caliber vessel has an ostial lesion of 70% angiographically and runs along the anterior wall supplying a sizable amount of myocardium, gives off septal and diagonal branches, but no significant disease. Diagonal branches are small in caliber. LAD is of a good caliber and distribution curves over the apex to supply the inferoapical portion of the left ventricle. LEFT POSTERIOR CIRCUMFLEX CORONARY ARTERY: This is technically a codominant type vessel which in the proximal portion is free of significant disease. Just before the origin of a smaller obtuse marginal, there is a 60% to 70% tight stenosis. The vessel then continues distally and it gives off another posterolateral branch and then continues as an obtuse marginal. The obtuse marginal also has a calcified plaque and the lesion is about 50% to 60% angiographically. INTRAVASCULAR ULTRASOUND: The intravascular ultrasound revealed that there is minimum luminal diameter of the ostium of the LAD was 2.2 mm. The minimum luminal diameter of the circumflex in the proximal portion was 1.9 mm and the mid circumflex/obtuse marginal was about 2.3 mm. However, the stenosis turns out to be 70% in the LAD and 65% to 70% in the circumflex. RECOMMENDATION: I am recommending aortocoronary bypass surgery with graft to LAD, circumflex and aortic valve replacement. Moderate conscious sedation time was 48 minutes. MMODL / IJN: [id number] /
[2018-08-06 14:05] VITALS: RESP 16
[2018-08-06 15:46] VITALS: BP 104/78; PULSE 55
--- NOTE | 2018-08-06 20:15 | P.DS ---
Providers Date of admission: 08/02/18 19:30 Expected date of discharge: 08/06/18 Attending physician: Rena Velez DO Consults: 08/02/18 18:02 Consult Physician Routine Consulting Provider: Fly Real Consult Reason/Comments: Aortic stenosis Do you want consulting provider notified?: Yes 08/02/18 19:30 Consult Physician Urgent Consulting Provider: [facility] Consult Reason/Comments: Chest pain, A. fib Do you want consulting provider notified?: Yes Primary care physician: Stated None Hospital Course: Discharge Diagnosis: 1. Severe aortic stenosis 2. Multivessel coronary artery disease 3. Paroxysmal atrial fibrillation with rapid ventricular response 4. Non-STEMI type II 5. Dyslipidemia 6. History of hypertension Hospital Course: Patient is a 58-year-old male with past medical history of severe aortic stenosis, arthritis, and prior syncopal event presented to the emergency department with complaints of chest pain. In the emergency department patient was noted to be in A. fib with rapid ventricular response. He was also noted to have slightly positive troponin at 0.047. Cardiology was contacted. They recommended metoprolol and heparin drip. He subsequently converted to normal sinus rhythm. He was admitted for further monitoring. He was seen by cardiovascular surgery who recommended aortic valve replacement. His heparin drip was discontinued as he maintained normal sinus rhythm. He underwent cardiac catheterization on 08/06 which showed significant stenosis in the LAD and left circumflex. Plan is for patient to be discharged home, obtain dental clearance, and returned on 08/10 for aortic valve replacement with coronary artery bypass grafting. Patient seen and examined at bedside. Chest pain free, no shortness of breath, no nausea, no vomiting. Vital signs reviewed and stable. General: non toxic, no distress, appears at stated age Derm: warm, dry Head: atraumatic, normocephalic, symmetric Eyes: EOMI, no lid lag, anicteric sclera Mouth: no lip lesion, mucus membranes moist Cardiovascular: 1 S2 with grade 4 systolic ejection murmur, positive posterior tibial pulse bilateral, Lungs: CTA bilateral, no rhonchi, no rales , no accessory muscle use A total of 35 minutes of time were spent preparing this complex discharge summary . Pertinent Studies: Echocardiogram ejection fraction 55-60%, severe aortic stenosis mean gradient across the valve is 72.64, peak gradient 108.49 Procedures: Cardiac catheterization-70% stenosis in the LAD, 60-70% stenosis in the left circumflex Patient Condition at Discharge: Stable Plan - Discharge Summary Discharge Rx Participant: No New Discharge Prescriptions: New Aspirin 81 mg PO DAILY #30 chew Atorvastatin [Lipitor] 40 mg PO DAILY #30 tab Metoprolol Tartrate [Lopressor] 25 mg PO DAILY #30 tab Discharge Medication List Aspirin 81 mg PO DAILY #30 chew 08/06/18 [Rx] Atorvastatin [Lipitor] 40 mg PO DAILY #30 tab 08/06/18 [Rx] Metoprolol Tartrate [Lopressor] 25 mg PO DAILY #30 tab 08/06/18 [Rx] Follow up Appointment(s)/Referral(s): None,Stated [Primary Care Provider] - 1-2 days (Please call insurance for a list of primary care providers. You will need to be set up with a primary physician before surgery. ) Lukas Parnell MD [STAFF PHYSICIAN] - 08/14/18 2:15 pm Patient Instructions/Handouts: *Surgery [facility] - After Heart Catheterization - Branch Officer Instructions, A-fib (Atrial Fibrillation) (DC), Aortic Valve Replacement (DC) Activity/Diet/Wound Care/Special Instructions: Diet: heart health Activity: as tolerated, light activity Discharge Disposition: HOME SELF-CARE
[2018-08-07] MEDS ORDERED: METOPROLOL TARTRATE 25 MG TAB PO SCH (09:00)
== END 2018-08-06 19:40 | disposition home or self-care (01) | DRG 282 ==
LOC: EC 16:28 → 3SCARD 19:30
PROVIDERS: ADMIT Internal Medicine; ATTEND Internal Medicine
PROC: B2111ZZ Fluoroscopy of Multiple Coronary Arteries using Low Osmolar Contrast (ICD-10-PCS; principal; 2018-08-06 11:33)
PROC: B241ZZ3 Ultrasonography of Multiple Coronary Arteries, Intravascular (ICD-10-PCS; 2018-08-06 11:33)
DX: I48.0 Paroxysmal atrial fibrillation (principal); I21.A1 Myocardial infarction type 2; I35.2 Nonrheumatic aortic (valve) stenosis with insufficiency; I25.10 Atherosclerotic heart disease of native coronary artery without angina pectoris; R00.1 Bradycardia, unspecified; E78.5 Hyperlipidemia, unspecified; I10 Essential (primary) hypertension; M19.042 Primary osteoarthritis, left hand; M19.041 Primary osteoarthritis, right hand; E66.9 Obesity, unspecified; Z68.26 Body mass index [BMI] 26.0-26.9, adult; Z87.891 Personal history of nicotine dependence; Z87.710 Personal history of (corrected) hypospadias; Z87.440 Personal history of urinary (tract) infections; Z91.011 Allergy to milk products; Z80.1 Family history of malignant neoplasm of trachea, bronchus and lung; Z80.3 Family history of malignant neoplasm of breast; Z80.8 Family history of malignant neoplasm of other organs or systems; Z82.49 Family history of ischemic heart disease and other diseases of the circulatory system; Z82.3 Family history of stroke
CPT/HCPCS: 36415; 71046; 80048; 80053; 80061; 83036; 83735; 83880; 84439; 84443; 84484; 85025; 85027; 85379; 85610; 85730; 86850; 86900; 86901; 87070; 92978; 93005; 93306; 93454; 94760; 96365; 96366; 96376; 99291

== ENCOUNTER 2018-08-10 05:30 | Inpatient (IN) | payer OTHER ==
[~2018-08-10 05:30] MED LIST: ALBUMIN HUMAN 25% 50 ML IV ONE; ALBUMIN HUMAN 5% 500 ML IVPB ONE; ASPIRIN 325 MG TAB PO ONE; ATORVASTATIN 10 MG TAB PO ONE; CALCIUM CHLORIDE 100 MG/ML 10 ML SYRINGE IV ONE; CHLORHEXIDINE GLUCONATE 15 ML CUP MUCOUS MEM ONE; CLEVIDIPINE BUTYRATE 25 MG in EMPTY BAG 1 BAG IV ONE; DEXTROSE 5% IN WATER 1,000 ML with POTASSIUM CHLORIDE 110 MEQ, MAGNESIUM SULFATE 16 MEQ... IV ONE; DEXTROSE 5% IN WATER 1,000 ML with POTASSIUM CHLORIDE 25 MEQ, SODIUM CHLORIDE 2.5MEQ/ML... IRRIGATION ONE; HEPARIN SODIUM 1,000 UN/ML (10ML VL) IV ONE; HEPARIN SODIUM,PORCINE 5,000 UNIT in SODIUM CHLORIDE 0.9% 500 ML 500 ML IV ONE; INSULIN REGULAR 100 UNIT in SODIUM CHLORIDE 0.9% 100 ML IV ONE; LACTATED RINGERS 1,000 ML IV ONE; MAGNESIUM SULFATE MG 500 MG/ML IV ONE; MANNITOL 25% 12.5 GM/50 ML VIAL IV ONE; METOPROLOL TARTRATE 12.5 MG TAB PO ONE; NITROGLYCERIN-D5W PMX 25 MG/250 ML BTL IV ONE; NITROGLYCERIN-D5W PMX 50 MG in DEXTROSE/WATER 1 250ML.BAG IV ONE; NITROGLYCERIN-D5W PMX 50 MG in DEXTROSE/WATER 1 250ML.BAG IV SCH; NOREPINEPHRINE 4 MG in SODIUM CHLORIDE 0.9% 250 ML IV ONE; PAPAVERINE 360 MG in SODIUM CHLORIDE 0.9% 90 ML IV ONE; PHENYLEPHRINE 10 MG/ML VIAL IV ONE; PHENYLEPHRINE 40 MG in SODIUM CHLORIDE 0.9% 250 ML IV ONE; PROPOFOL 1,000 MG/100 ML VIAL IV ONE; PROTAMINE SULFATE 10 MG/ML 25 ML VIAL IV ONE; PROTAMINE SULFATE 250 MG in EMPTY BAG 1 BAG IV ONE; SODIUM BICARB 8.4% 50 ML SYR (1 MEQ/ML) IV ONE; SODIUM CHLORIDE 0.9% 1,000 ML IV ONE; TRANEXAMIC ACID 2,000 MG in SODIUM CHLORIDE 0.9% 80 ML IV ONE; ceFAZolin 1,000 MG in SODIUM CHLORIDE 0.9% IRRIGATIO 1,000 ML IRRIGATION ONE; ceFAZolin 2,000 MG in SODIUM CHLORIDE 0.9% 30 ML IVPB ONE; ceFAZolin IN SWFI 2 GM/20 ML SYRINGE IVP ONE
[2018-08-10] MEDS ORDERED: EPINEPHrine 4 MG in DEXTROSE 5% IN WATER 250 ML IV SCH ×2 (06:00)
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
--- NOTE | 2018-08-10 07:05 | P.PCN ---
Date of Procedure: 08/10/18 Preoperative Diagnosis: Urethral reconstruction with hypospadias and meatal stenosis Postoperative Diagnosis: Same Procedure(s) Performed: Urethral dilation with difficult catheter placement Anesthesia: local Surgeon: Jerry Lino Pathology: none sent Condition: stable Indications for Procedure: The patient is 58. He is to have open heart surgery, valvular and revascularization today. He has a subcoronal hypospadiac meatus and meatal stenosis due to being born with hypospadias and having surgical correction as a young boy. Cardiac surgery has asked me to place a catheter preoperatively Description of Procedure: The patient is in preoperative holding. He has been given some IV sedation. He is prepped and draped sterilely. The urethral meatus is inspected it is just above mid shaft. There is a small fistula proximal to that. He is prepped sterilely. A Urojet is injected. The small fistulous opening is identified. I dilate the meatal stenosis and distal urethra with [place] sounds [id number]. The 16-Welsh catheter used in open heart surgery is then inserted into the bladder. There is some narrowing probably at the proximal anastomosis that is dilated with the catheter. It is then passed in the bladder with clear urine return. Impression subcoronal hypospadias, meatal stenosis, slight urethral narrowing due to previous reconstruction of urethra, small urethrocutaneous fistula. A catheter is been successfully placed. The catheter can be removed at any time deemed appropriate per the cardiac surgery staff.
[2018-08-10] MEDS ORDERED: ELECTROLYTE-R (PH 7.4) 1,000 ML IV.SOLN IV ONE (07:23)
[2018-08-10] MEDS ORDERED: PHENYLEPHRINE-0.9% NACL SYG 1 MG/10 ML SYRINGE ONE (07:23)
[2018-08-10] MEDS ORDERED: NITROGLYCERIN-D5W PMX 50 MG/250 ML BOTTLE IV ONE (07:23)
[2018-08-10] MEDS ORDERED: MAGNESIUM SULFATE 4 MEQ/ML 10ML VIAL ONE (07:23)
[2018-08-10] MEDS ORDERED: ePHEDrine SULFATE/0.9% NACL/PF 50 MG/5 ML SYRINGE IV ONE (07:23)
[2018-08-10] MEDS ORDERED: ALBUMIN HUMAN 5% (12.5gm) 250 ML BOTTLE IVPB ONE (07:23)
[2018-08-10] MEDS ORDERED: MIDAZOLAM 2 MG/2 ML VIAL ONE (07:23)
[2018-08-10] MEDS ORDERED: AMIODARONE 50 MG/ML 3 ML VIAL IV ONE (07:23)
[2018-08-10] MEDS ORDERED: VECURONIUM 10 MG VIAL IV ONE (07:23)
[2018-08-10] MEDS ORDERED: SODIUM CHLORIDE 0.9% 250 ML BAG ONE (07:23)
[2018-08-10] MEDS ORDERED: LIDOCAINE 2% SYG (PF) 100 MG/5 ML ONE (07:23)
[2018-08-10] MEDS ORDERED: PROPOFOL 10 MG/ML 20 ML VIAL IV ONE (07:23)
[2018-08-10] MEDS ORDERED: SODIUM CHLORIDE 0.9% IRRIG 1,000 ML BTL IRRIGATION ONE (07:23)
[2018-08-10] MEDS ORDERED: TRANEXAMIC ACID 1,000 MG/10 ML VIAL ONE (07:23)
[2018-08-10] MEDS ORDERED: fentaNYL (PF) 50 MCG/ML 2 ML AMP ONE (07:23)
[2018-08-10] MEDS ORDERED: PROTAMINE SULFATE 10 MG/ML 25 ML VIAL IV ONE (07:23)
[2018-08-10] MEDS ORDERED: HEPARIN SODIUM,PORCINE 10,000 UNIT/ML 1 ML VIAL ONE (07:23)
[2018-08-10] MEDS ORDERED: fentaNYL (PF) 50 MCG/ML 50 ML VIAL ONE (07:23)
[2018-08-10] MEDS ORDERED: ALBUMIN HUMAN 5% (25gm) 500 ML VIAL IVPB ONE (07:23)
--- NOTE | 2018-08-10 07:57 | P.ANPRN ---
Procedure Note - Anesthesia - Invasive Line Right Central Line Time Out Performed: Yes (7:10) Date of Procedure: 08/10/18 Time of Procedure: 07:10 Location of Patient Procedure: PACU Preparation: Sterile Prep, Sterile Dressing Ultrasound Used: Yes (direct guidance) Needle Guage: 18 Narrative: Central line placement per sterile protocol utilized.
--- NOTE | 2018-08-10 07:59 | P.ANPRN ---
Procedure Note - Anesthesia - Invasive Line Right [place] Date of Procedure: 08/10/18 Time of Procedure: 07:18 Location of Patient Procedure: PACU Preparation: Sterile Prep, Sterile Dressing Ultrasound Used: No Needle Guage: None Narrative: All ports flushed. Line to 20 cm. Balloon inflated. Advanced until RV and then PA waveform obtained. Balloon deflated and line secured @ 43 cm. No complications
[2018-08-10] MEDS ORDERED: SODIUM CHLORIDE 0.9% 500 ML 500 ML with HEPARIN SODIUM,PORCINE 5,000 UNIT IV ONE ×2 (10:03)
[2018-08-10] MEDS ORDERED: PAPAVERINE 360 MG in SODIUM CHLORIDE 0.9% 90 ML IV ONE (10:03)
[2018-08-10] MEDS ORDERED: ceFAZolin 1,000 MG in SODIUM CHLORIDE 0.9% 1,000 ML IRRIGATION ONE (10:04)
[2018-08-10] MEDS ORDERED: AMIODARONE 360 MG in DEXTROSE 5% IN WATER 200 ML IV ONE ×2 (14:48)
[2018-08-10] MEDS ORDERED: ALBUMIN HUMAN 5% 250 ML in EMPTY BAG 1 BAG IVPB PRN (16:15)
[2018-08-10] MEDS ORDERED: Phosphorus Replacement Protoco 1 EACH MISC MISCELLANE PRN (16:15)
[2018-08-10] MEDS ORDERED: CALCIUM GLUCONATE 2 GM in SODIUM CHLORIDE 0.9% 100 ML IVPB PRN (16:15)
[2018-08-10] MEDS ORDERED: DEXTROSE 5% IN WATER 100 ML with AMIODARONE 150 MG IV PRN (16:15)
[2018-08-10] MEDS ORDERED: ONDANSETRON 4 MG/2 ML VIAL IVP PRN (16:15)
[2018-08-10] MEDS ORDERED: BENZOCAINE/MENTHOL LOZENG 1 EACH LOZENGE MUCOUS MEM PRN (16:15)
[2018-08-10] MEDS ORDERED: Magnesium Replacement Protocol 1 EACH MISC MISCELLANE PRN (16:15)
[2018-08-10] MEDS ORDERED: METOCLOPRAMIDE 5 MG/ML 2 ML VIAL IVP PRN (16:15)
[2018-08-10] MEDS ORDERED: PROPOFOL 1,000 MG in EMPTY BAG 1 BAG IV SCH (16:15)
[2018-08-10] MEDS ORDERED: AMIODARONE 360 MG in DEXTROSE 5% IN WATER 200 ML IV PRN ×2 (16:15)
[2018-08-10] MEDS ORDERED: AMIODARONE 300 MG in DEXTROSE 5% IN WATER 250 ML IV PRN ×2 (16:15)
[2018-08-10] MEDS ORDERED: Potassium Replacement Protocol 1 EACH MISC MISCELLANE PRN (16:15)
[2018-08-10] MEDS ORDERED: IPRATROPIUM-ALBUTEROL 3 ML NEB INHALATION PRN (16:15)
[2018-08-10] MEDS: LACTATED RINGERS 1,000 ML IV SCH (16:24)
[2018-08-10 16:54] LABS: Basophils % (A) 0 %; Eosinophils # (A) 0.1 k/uL (0-0.7); Eosinophils % (A) 1 %; HCT 29.7 % (39.0-53.0); Ionized Calcium 4.9 mg/dL (4.5-5.3); Lymphocytes # (A) 1.1 k/uL (1.0-4.8); Lymphocytes % (A) 12 %; MCH 30.7 pg (25.0-35.0); MCHC 32.7 g/dL (31.0-37.0); MCV 93.8 fL (80.0-100.0); Monocytes # (A) 0.6 k/uL (0-1.0); Monocytes % (A) 6 %; Neutrophils # (A) 7.8 k/uL (1.3-7.7); Neutrophils % (A) 81 %; RBC 3.17 m/uL (4.30-5.90); RDW 12.9 % (11.5-15.5); WBC 9.6 k/uL (3.8-10.6)
[2018-08-10 16:59] LABS: Glucose,Whole Blood 116 mg/dL (75-99)
[2018-08-10 17:01] LABS: ALT 21 U/L (21-72); AST 38 U/L (17-59); African American GFR (CKD) >90 (>60 ml/min/1.73 sqM); Albumin 2.7 g/dL (3.5-5.0); Alkaline Phosphatase 29 U/L (38-126); Anion Gap 6 mmol/L; Blood Urea Nitrogen 12 mg/dL (9-20); Calcium 7.8 mg/dL (8.4-10.2); Carbon Dioxide 26 mmol/L (22-30); Chloride 107 mmol/L (98-107); Glucose 106 mg/dL (74-99); Magnesium 2.4 mg/dL (1.6-2.3); Potassium 4.4 mmol/L (3.5-5.1); Sodium 139 mmol/L (137-145); Total Bilirubin 0.5 mg/dL (0.2-1.3); Total Protein 4.7 g/dL (6.3-8.2)
[2018-08-10 17:05] LABS: HGB 9.7 gm/dL (13.0-17.5); Platelet Count 111 k/uL (150-450)
[2018-08-10 17:13] LABS: Glucose,Whole Blood 109 mg/dL (75-99)
[2018-08-10 17:18] LABS: ABG Base Excess -0.9 mmol/L; ABG HCO3 25 mmol/L (21-25); ABG PCO2 51 mmHg (35-45); ABG PH 7.31 (7.35-7.45); ABG PO2 310 mmHg (83-108); ABG TCO2 27 mmol/L (19-24); Allen Test Performed? Yes
--- NOTE | 2018-08-10 17:34 | XR ---
EXAMINATION: XR chest 1V portable DATE AND TIME: 08/10/2018 5:01 PM CLINICAL INDICATION: [facility]; Post Operative Cardiac Surgery TECHNIQUE: Portable AP supine COMPARISON: 08/02/2018 FINDINGS: Since the prior study, sternal sutures and mediastinal clips and valve prosthesis are present. The pa tient is intubated with the ET tube tip superimposed over the mid trachea. An NG tube is present, pas sing over the expected course of the thoracic esophagus and on into the stomach and its tip related t o the expected position of the greater curvature of the stomach. Mediastinal drain and right IJ [place] with tip superimposed over the MPA. Left chest tube is present, with soft tissue emphysema noted late ral to the left hemithorax. There is no evidence of pneumothorax. However, this is a supine radiograph and, therefore, abnormal g as collections cannot be excluded due to patient positioning. Cardiac silhouette moderately enlarged, tortuosity of the thoracic aorta noted. No definite acute skeletal or soft tissue findings are evident. IMPRESSION: Post cardiac surgery AP supine portable radiograph.
[2018-08-10 17:35] LABS: INR 1.1 (<1.2)
[2018-08-10 17:36] LABS: Partial Thromboplastin Time 26.1 sec (22.0-30.0); Prothrombin Time 11.5 sec (9.0-12.0)
[2018-08-10] MEDS: CLEVIDIPINE BUTYRATE 25 MG in EMPTY BAG 1 BAG IV SCH ×2 (17:50→18:31)
[2018-08-10] MEDS: ceFAZolin IN SWFI 2 GM/20 ML SYRINGE IVP SCH ×2 (17:52→23:15)
[2018-08-10] MEDS: ACETAMINOPHEN IV (For NPO) 1,000 MG in EMPTY BAG 1 BAG IVPB SCH ×2 (17:53→23:11)
[2018-08-10 18:10] LABS: Glucose,Whole Blood 114 mg/dL (75-99)
[2018-08-10 19:02] LABS: Glucose,Whole Blood 126 mg/dL (75-99)
[2018-08-10 19:25] LABS: Basophils % (A) 0 %; Eosinophils % (A) 0 %; HCT 30.8 % (39.0-53.0); HGB 10.4 gm/dL (13.0-17.5); Lymphocytes # (A) 1.1 k/uL (1.0-4.8); Lymphocytes % (A) 9 %; MCH 31.2 pg (25.0-35.0); MCV 91.9 fL (80.0-100.0); Monocytes # (A) 0.7 k/uL (0-1.0); Monocytes % (A) 6 %; Neutrophils # (A) 9.9 k/uL (1.3-7.7); Neutrophils % (A) 84 %; Platelet Count 153 k/uL (150-450); RBC 3.35 m/uL (4.30-5.90); RDW 13.4 % (11.5-15.5); WBC 11.8 k/uL (3.8-10.6)
[2018-08-10] MEDS: IPRATROPIUM-ALBUTEROL 3 ML NEB INHALATION SCH (19:42)
[2018-08-10] MEDS ORDERED: IPRATROPIUM-ALBUTEROL 3 ML NEB INHALATION SCH (20:00)
[2018-08-10 20:44] LABS: Glucose,Whole Blood 173 mg/dL (75-99)
[2018-08-10] MEDS ORDERED: AMIODARONE 300 MG in DEXTROSE 5% IN WATER 250 ML IV SCH ×2 (20:48)
[2018-08-10 21:07] LABS: Glucose,Whole Blood 179 mg/dL (75-99)
[2018-08-10] MEDS: KETOROLAC 30 MG/ML 1 ML VIAL IVP SCH (21:26)
[2018-08-10] MEDS: MUPIROCIN 2% OINT 22 GM TUBE NASAL SCH (21:52)
[2018-08-10 22:10] LABS: ABG Base Excess -1.7 mmol/L; ABG HCO3 23 mmol/L (21-25); ABG Oxygen Saturation 98.5 % (94-97); ABG PCO2 39 mmHg (35-45); ABG PH 7.39 (7.35-7.45); ABG PO2 140 mmHg (83-108); ABG TCO2 25 mmol/L (19-24)
[2018-08-10 22:27] LABS: African American GFR (CKD) >90 (>60 ml/min/1.73 sqM); Anion Gap 7 mmol/L; Basophils % (A) 0 %; Blood Urea Nitrogen 12 mg/dL (9-20); Calcium 7.9 mg/dL (8.4-10.2); Carbon Dioxide 24 mmol/L (22-30); Chloride 106 mmol/L (98-107); Eosinophils % (A) 0 %; Glucose 142 mg/dL (74-99); HCT 30.8 % (39.0-53.0); HGB 9.9 gm/dL (13.0-17.5); Lymphocytes # (A) 0.6 k/uL (1.0-4.8); Lymphocytes % (A) 5 %; MCHC 32.1 g/dL (31.0-37.0); MCV 93.7 fL (80.0-100.0); Mean Platelet Volume 8.1; Monocytes # (A) 0.6 k/uL (0-1.0); Monocytes % (A) 5 %; Neutrophils # (A) 9.6 k/uL (1.3-7.7); Neutrophils % (A) 89 %; Phosphorus 3.5 mg/dL (2.5-4.5); Platelet Count 143 k/uL (150-450); Potassium 4.1 mmol/L (3.5-5.1); RBC 3.29 m/uL (4.30-5.90); Sodium 137 mmol/L (137-145); WBC 10.8 k/uL (3.8-10.6)
[2018-08-10] MEDS ORDERED: INSULIN REGULAR 100 UNIT/ML VIAL IV ONE (22:38)
[2018-08-10 23:00] LABS: Glucose,Whole Blood 141 mg/dL (75-99)
[2018-08-10] MEDS: HEPARIN SODIUM,PORCINE 5,000 UNIT/ML 1 ML VIAL SQ SCH (23:17)
--- NOTE | 2018-08-10 23:25 | OP ---
OPERATIVE REPORT DATE OF SURGERY: 08/10/2018 SURGEON: Dr. Fly Real ASSISTANTS: 1. Misha Vasquez, NISSA. 2. NISSA Reyez. PREOPERATIVE DIAGNOSES: 1. Double-vessel coronary artery disease. 2. Pid-IG-vperasezq myocardial infarction. 3. Severe aortic valve stenosis on a bicuspid valve. 4. Preserved left ventricular function. 5. Hypertension. 6. Hyperlipidemia. 7. Family history of premature coronary artery disease. POSTOPERATIVE DIAGNOSES: 1. Double-vessel coronary artery disease. 2. Onl-JN-erwfemiwn myocardial infarction. 3. Severe aortic valve stenosis on a bicuspid valve. 4. Preserved left ventricular function. 5. Hypertension. 6. Hyperlipidemia. 7. Family history of premature coronary artery disease. PROCEDURES: 1. Double arterial coronary artery bypass grafting using the left internal mammary artery to the left anterior descending artery, the left radial artery from the aorta to the second obtuse marginal artery. 2. Aortic valve replacement using a 23 mm pericardial bioprosthesis Inspiris. 3. Bilateral pulmonary vein isolation using the radiofrequency bipolar clamp from AtriCure anf exclusion of the left atrial appendage using a 35 mm AtriClip. 4. Intraoperative transesophageal echocardiogram and epiaortic scanning. 5. Intraoperative graft flow measurements using the [employer] system. INDICATION FOR SURGERY: The patient is a 58-year-old gentleman who was diagnosed with severe aortic valve stenosis in February. The patient did not follow up and tried alternative medicine with herbal medications. He was readmitted with an episode of chest pain. He had positive cardiac enzymes. His cardiac catheterization in February raised the suspicion of potentially a significant circumflex stenosis. In view of that and in view of the fact that the patient would need aortic valve replacement, a repeat cardiac catheterization with IVUS was performed, and that showed significant proximal ostial LAD stenosis and progression of the mid circumflex stenosis. The right coronary artery was okay. The patient has severe aortic valve stenosis and moderate aortic valve regurgitation. He had an episode of paroxysmal atrial fibrillation when he showed up in the emergency room. For that reason, the patient will be receiving today an aortic valve replacement and his choice was for a bioprosthesis, double-vessel coronary artery bypass grafting with arterial grafting in view of his age, and we will be performing bilateral pulmonary vein isolation and exclusion of his left atrial appendage. The STS risk was discussed with him and his . They understood it and agreed to proceed. DESCRIPTION OF THE PROCEDURE: The patient had a right internal jugular Hurley-John catheter and had a right radial arterial line placed in the preoperative holding area. He had normal PA pressure and good cardiac index. Subsequently he was brought to the operating room, where general endotracheal anesthesia was induced uneventfully. Cheek catheter was inserted. The patient received 2 grams of cefazolin intravenously. The chest, abdomen, both lower extremities and left upper extremity were prepped and draped using ChloraPrep. Ioban was used to cover the skin. Transesophageal echocardiogram confirmed the preoperative finding of severe aortic valve stenosis, preserved left ventricular function. There were some secondary or tertiary chordae of the mitral valve that were ruptured. However, there was trivial mitral valve regurgitation. A midline sternotomy was performed and no bone wax was used. The bone was reasonably dense. The left hemisternum was elevated and the left internal mammary artery was harvested in a somewhat skeletonized fashion. The left pleura was intentionally opened in this process and was drained with a 19-Kosovan Warren drain. The right pleura remained intact. In the same setting, the left radial artery was harvested endoscopically without using a tourniquet. It was initially exposed at the wrist, and a clamping trial revealed preserved signal in the left index oxygen saturation probe. The forearm incisions were closed over a small 10-Kosovan Warren drain. Mediastinal fat was transected between 2 ties and epiaortic scanning revealed some wall disease, but no protruding atheroma in the ascending aorta. Pericardium was opened in an inverted T-fashion and a pericardial cradle was created. Findings included a normal- sized aorta and a normal-sized heart. However, there was evidence of diffuse plaquing of the coronary arteries. After systemic heparinization and after placement of respective pledgeted pursestrings, aortic cannulation with a 21-Kosovan SoftFlow cannula and venous cannulation with a dual- stage venous cannula via the right atrial appendage were performed. Antegrade as well as retrograde cardioplegia catheters were placed. Cardiopulmonary bypass was initiated, and with the patient's heart beating and warm, we looked at the target. It appeared that the mid to distal LAD and the second obtuse marginal artery would be the sites for bypass. Again, as mentioned above, there was evidence of diffuse plaquing of the coronaries. The aorta was clamped. During aortic clamping, myocardial protection was achieved with initial dose of 800 mL of antegrade cold blood cardioplegia with adequate arrest at 300 mL followed by 500 mL of retrograde cold blood cardioplegia. All subsequent doses were given retrograde at 15-minute intervals. We started initially by performing the modified Maze procedure. The space between the right superior pulmonary vein and the right pulmonary artery was developed after developing some of the interatrial groove, and we were able to encircle the right-sided pulmonary vein with a red rubber tube, and that helped in passing a bipolar radiofrequency clamp from AtriCure. We performed 3 ablations at the level of the vein antrum on the right side. On the left side, the ligament of Abram was incised with a Bovie and the veins were encircled; also 3 ablations using the bipolar radiofrequency clamp of the left-sided pulmonary vein were performed at the level of the antrum. Subsequently the left atrial appendage was excluded with a 35 mm AtriClip. Attention was moved at this point to performing the coronary artery bypass part. The first distal anastomosis was between the radial artery, which was prepared by incising the fascia all along its volar aspect and clipping all its branches; it was around 2 mm in diameter, and the second obtuse marginal artery after a plaque. That artery was opened and was around 2 mm in diameter. It had an eccentric plaque in it still, and the anastomosis was completed using Prolene 7-0 in continuous fashion. I elected to perform the proximal anastomosis of that radial artery at that point. One button of 4 mm each was punched out of the left lateral aspect of the ascending aorta and the proximal anastomosis was completed using Prolene 7-0 in continuous fashion. The second distal anastomosis was between the left internal mammary artery, which was around 1.75 mm diameter and the mid to distal aspect of the left anterior descending artery which was opened and was around 1.5 mm in diameter. It had a posterior plaque in it. The rest was thin-walled. The anastomosis was completed after insertion of a 1 mm shunt to better define those thin edges of the target using Prolene 7-0 in continuous fashion. The shunt was removed before completing the anastomosis, which was hemostatic. The mammary artery pedicle was affixed to the epicardium using Prolene 6-0 suture. Attention was moved at this point to performing the aortic valve replacement part. The aorta was opened in a transverse fashion 1 cm above the right coronary artery. X-rays revealed a severely calcified valve with mainly bicuspid morphology with calcified raphae between the right and left coronary cusps. The valve was excised and decalcified. That took a while in view of extensive calcification going to the anulus. The anulus appeared intact, though. Thorough irrigation with around 1 L of cold saline followed. CO2 was flowing over the field as long as the aorta was open. The anulus was sized to 23 mm, and a pericardial bioprosthesis Inspiris was selected. A total of 15 sutures was passed using Tycron 2-0 in a horizontal mattress fashion with the pledgets on the ventricular side all along the perimeter of the ely shoshone aortic anulus. Those were passed into the cuff of the prosthesis, which seated nicely in a supra- annular position. All the suture needles were cut and the sutures tied using the Corknot device. Both coronary ostia were clear. Further irrigation was performed. Rewarming was started as we closed the aortotomy in 2 layers using Prolene 3-0 pledgeted on each corner with the first layer in a horizontal mattress and the second layer an [id number] technique. The patient was given lidocaine and magnesium and de- airing maneuvers were performed. The aorta was unclamped with the patient in steep Trendelenburg position and the aortic vent at maximum. ELI at this point showed trivial paravalvular leak. There was a lot of air in the left ventricle. I went ahead and de-aired using also an 18-gauge needle via the apex. That helped a lot. The needle hole did not bleed and did not require closing at the level of the apex. Graft flow measurements revealed excellent patent grafts. The mammary artery had a flow of 86 mL/minute with a pulsatility index of 0.9 and diastolic filling of 72%. The radial artery had a flow of 72 mL/minute, pulsatility index of 0.8, and diastolic filling of 68%, also showing an excellent functioning graft. The patient required a couple of defibrillations for intermittent ventricular tachycardia, probably due to air. He was given also 300 mg of amiodarone and that helped in controlling the ventricular arrhythmia. He had a first-degree AV block. Two monopolar atrial pacing wires were affixed to the respective pursestrings on the right atrium and one bipolar ventricular pacing wire was driven via the inferior aspect of the right ventricle. The patient was progressively weaned off cardiopulmonary bypass without the need of any inotropic or vasopressor support. He was on nitroglycerin as an anti-spastic measure for the radial artery. His baseline is sinus bradycardia, and I elected to atrially pace him at 80 for optimal hemodynamics. ELI showed a very well-functioning aortic valve with a mean gradient of around 11 mmHg and no paravalvular leak. There was no mitral valve regurgitation. The left ventricular function was normal. The patient was given test-dose and full-dose protamine. Decannulation followed. Hemostasis appeared to be satisfactory, and I used Floseal over the aortotomy and the proximal radial artery site. A groove was made in the left pleural pericardial fat to accommodate the mammary artery medial to the lung and away from the posterior sternal table. Two 19-Kosovan Warren drains were placed, one substernally and one in the posterior pericardium. Pericardial fat was loosely approximated over the aorta and over the right ventricle. After ensuring adequate hemostasis and hemodynamics and after correct sponge, instrument and needle counts, the sternum was closed using 5 [id number]-wdwjl pineal cables after interposing Fibrillar between the sternal edges. Thorough irrigation with cefazolin followed. The rest of the closure proceeded in layers. Skin glue was applied. The patient did not receive any blood bank product but received 700 mL of Cell Saver blood. He was transferred to the ICU in stable condition with a cardiac index of 3, PA pressure of 32/17, mean arterial pressure of 76, atrially paced at 80 for his sinus bradycardia of around 57, on low-dose nitroglycerin. MMODL / IJN: [id number] / [facility]
[2018-08-10] MEDS ORDERED: INSULIN REGULAR 100 UNIT in SODIUM CHLORIDE 0.9% 100 ML IV SCH (23:30)
[2018-08-11 00:04] LABS: Glucose,Whole Blood 134 mg/dL (75-99)
[2018-08-11 02:08] LABS: Glucose,Whole Blood 128 mg/dL (75-99)
[2018-08-11 04:02] LABS: Glucose,Whole Blood 134 mg/dL (75-99)
[2018-08-11 04:33] LABS: Basophils % (A) 0 %; Eosinophils % (A) 0 %; HCT 29.5 % (39.0-53.0); HGB 9.5 gm/dL (13.0-17.5); Lymphocytes # (A) 0.7 k/uL (1.0-4.8); Lymphocytes % (A) 7 %; MCHC 32.2 g/dL (31.0-37.0); MCV 93.1 fL (80.0-100.0); Mean Platelet Volume 8.3; Monocytes # (A) 0.6 k/uL (0-1.0); Monocytes % (A) 6 %; Neutrophils # (A) 8.3 k/uL (1.3-7.7); Neutrophils % (A) 86 %; Platelet Count 132 k/uL (150-450); RBC 3.17 m/uL (4.30-5.90); WBC 9.7 k/uL (3.8-10.6)
[2018-08-11 04:38] LABS: Ionized Calcium 4.7 mg/dL (4.5-5.3)
[2018-08-11 05:17] LABS: ALT 25 U/L (21-72); AST 45 U/L (17-59); African American GFR (CKD) >90 (>60 ml/min/1.73 sqM); Albumin 3.1 g/dL (3.5-5.0); Alkaline Phosphatase 36 U/L (38-126); Anion Gap 9 mmol/L; Blood Urea Nitrogen 13 mg/dL (9-20); Calcium 8.1 mg/dL (8.4-10.2); Carbon Dioxide 25 mmol/L (22-30); Chloride 104 mmol/L (98-107); Glucose 121 mg/dL (74-99); Magnesium 1.9 mg/dL (1.6-2.3); Potassium 4.5 mmol/L (3.5-5.1); Sodium 138 mmol/L (137-145); Total Bilirubin 0.5 mg/dL (0.2-1.3); Total Protein 5.2 g/dL (6.3-8.2)
[2018-08-11] MEDS: KETOROLAC 30 MG/ML 1 ML VIAL IVP SCH ×3 (06:08→19:39)
[2018-08-11 06:15] LABS: Glucose,Whole Blood 129 mg/dL (75-99)
--- NOTE | 2018-08-11 06:59 | XR ---
EXAMINATION TYPE: XR chest 1V portable DATE OF EXAM: 08/11/2018 HISTORY: Post Operative Cardiac Surgery. REFERENCE: Previous study dated 08/10/2018. FINDINGS: There has been a midline sternotomy. The patient has been extubated. The patient is NG tube is been removed. There continues to be a left pleural drain. A Tazewell-John catheter is in place via a right internal jugular approach. Its tip is in the right coronary artery. The heart is enlarged. There is left basilar airspace disease. There is a small left effusion. IMPRESSION: CONTINUING POSTOPERATIVE CHANGE.
[2018-08-11 07:06] LABS: Glucose,Whole Blood 123 mg/dL (75-99)
[2018-08-11] MEDS: MAGNESIUM SULFATE-D5W PMX 1 GM in DEXTROSE/WATER 1 100ML.BAG IVPB SCH ×2 (07:09→09:05)
[2018-08-11] MEDS: IPRATROPIUM-ALBUTEROL 3 ML NEB INHALATION SCH ×4 (07:56→19:50)
--- NOTE | 2018-08-11 07:58 | P.PN ---
Subjective Progress Note Date: 08/11/18 Principal diagnosis: Double vessel coronary artery disease, severe aortic valve stenosis on a bicuspid valve, preserved left ventricular function. Previous medical history of recent non-STEMI, recent diagnosis of paroxysmal atrial fibrillation, recent syncopal episode, hypertension, hyperlipidemia, hypospadias with surgical repair as an , and family history of premature coronary artery disease. POD #1 double arterial coronary artery bypass grafting using the left internal mammary artery to the left anterior descending artery, the left radial artery from the aorta to the second obtuse marginal artery. Aortic valve replacement using a 23 mm pericardial bioprosthesis, Inspiris. Bilateral pulmonary vein isolation using the radiofrequency bipolar clamp from AtriCure for exclusion of the left atrial appendage using a 35 mm AtriClip. Left radial artery harvesting. Intraoperative transesophageal echocardiogram. Epi-aortic scanning. Intraoperative graft flow measurements using the Thryve system. Postoperative acute blood loss anemia, expected outcome secondary to cardiopulmonary bypass pump and hemodilution. The patient's currently sitting up in a recliner in no acute distress. States pain is controlled on current medication regimen, denies shortness of breath. He was successfully extubated last night at 22:22. Was atrially paced this morning, underlying rhythm sinus rhythm in the high 70s to low 80s. Remains hemodynamically stable on no inotropes or pressors. No significant hemodynamic events noted overnight. Objective - Vital Signs Vital signs: Vital Signs Temp 97.5 F L 08/10/18 18:00 Pulse 81 08/11/18 06:15 Resp 20 08/11/18 06:15 BP 129/72 08/10/18 06:20 Pulse Ox 96 08/11/18 06:15 Intake & Output 08/10/18 08/11/18 08/11/18 18:59 06:59 18:59 Intake Total 871.488 1389.532 Output Total 3575 1425 Balance -3378.896 -231.468 Weight 90.5 kg Intake: IV 167.0 1180.0 ACETAMINOPHEN IV (For NPO 200 ) 1,000 mg In Empty Bag 1 bag @ 400 mls/hr IVPB Q6HR [facility] Rx#:[id number] CO/CI 40 260 Lactated Ringers 1,000 ml 100 600 @ 50 mls/hr IV .Q20H [facility] Rx#:[id number] Nitroglycerin-D5w Pmx 50 3.0 12.0 mg In Dextrose/Water 1 250ml.bag @ Per Protocol IV ONCE ONE Rx#:[id number] Pressure Bag 18 108 Intake, IV Titration 13.532 Amount Clevidipine Butyrate 25 5.2 mg In Empty Bag 1 bag @ 1 MG/HR 2 mls/hr IV .Q24H [facility] Rx#:[id number] Insulin Regular 100 unit 8.332 In Sodium Chloride 0.9% 100 ml @ Per Protocol IV .Q0M [facility] Rx#:[id number] Propofol 1,000 mg In Empty Bag 1 bag @ Titrate IV .Q0M [facility] Rx#: [id number] Output: Drainage 570 420 L Pleural 250 170 MSx2 320 250 Urine 1005 1005 Estimated Blood Loss 2000 Other: Voiding Method Indwelling Catheter ABP, PAP, CO, CI - Last Documented Arterial Blood Pressure 116/55 Pulmonary Artery Pressure 21/10 Cardiac Output 6.3 Cardiac Index 3.1 - Constitutional General appearance: Present: cooperative, no acute distress - Respiratory Details: Lungs sounds diminished bilaterally. Respirations even, nonlabored. Currently on 3 L nasal cannula with oxygen saturation 97%. Able to achieve 1000 mL on his incentive spirometry. Strong cough. Mediastinal chest tube to continuous wall suction, 110 mL serosanguineous drainage overnight, 600 mL since surgery. Left pleural chest tube to continuous wall suction, 80 mL serosanguineous drainage overnight, 400 mL since surgery. No air leaks present. - Cardiovascular Details: S1, S2 present. Regular rate and rhythm, sinus rhythm on telemetry. Sternum stable. A/V epicardial pacemaker wires present, connected to generator, AAI mode with backup rate 50 bpm. Palpable peripheral pulses bilaterally. No edema present. No calf pain or tenderness noted. Right internal jugular Del Rio/Cordis, right radial arterial line present. Last CO/CI 6.3/3.1 on no inotropes or pressors. Heart hugger in place with patient demonstrating appropriate use. Antiembolism stockings, SCDs present. - Gastrointestinal Gastrointestinal Comment(s): Abdomen soft, nontender, nondistended. Hypoactive bowel sounds present 4 quadrants. Tolerating clear liquids. Positive belching, negative flatus, nega tive bowel movement. - Genitourinary Genitourinary Comment(s): Cheek present draining clear, yellow urine. Urine output 45-70 mL/h overnight. - Integumentary Integumentary Comment(s): Skin is warm and dry with evidence of good perfusion. Anterior chest incision well approximated and covered with dry intact dressing. Left radial artery harvest site well approximated, ROSALBA drain present with minimal drainage. Patient does have some numbness to his left hand but no pain, can wiggle all fingers and provide appropriate sack cleaning hand. Left hand is warm with good cap refill. - Neurologic Neurologic: Present: CNII-XII intact - Musculoskeletal Musculoskeletal: Present: strength equal bilaterally - Psychiatric Psychiatric: Present: A&O x's 3, appropriate affect, intact judgment & insight - Allied health notes Allied health notes reviewed: nursing - Labs CBC & Chem 7: 08/11/18 04:00 08/11/18 04:00 Labs: Abnormal Lab Results - Last 24 Hours (Table) 08/08/18 08/10/18 08/10/18 Range/Units 12:31 16:42 16:42 WBC (3.8-10.6) k/uL RBC 3.17 L (4.30-5.90) m/uL Hgb 9.7 L D (13.0-17.5) gm/dL Hct 29.7 L (39.0-53.0) % Plt Count 111 L D (150-450) k/uL Neutrophils # 7.8 H (1.3-7.7) k/uL Lymphocytes # (1.0-4.8) k/uL ABG pH (7.35-7.45) ABG pCO2 (35-45) mmHg ABG pO2 (83-108) mmHg ABG Total CO2 (19-24) mmol/L ABG O2 Saturation (94-97) % Creatinine 0.61 L (0.66-1.25) mg/dL Glucose 106 H (74-99) mg/dL POC Glucose (mg/dL) (75-99) mg/dL Calcium 7.8 L (8.4-10.2) mg/dL Magnesium 2.4 H (1.6-2.3) mg/dL Alkaline Phosphatase 29 L (38-126) U/L Total Protein 4.7 L (6.3-8.2) g/dL Albumin 2.7 L (3.5-5.0) g/dL Crossmatch See Detail 08/10/18 08/10/18 08/10/18 Range/Units 16:42 17:00 17:15 WBC (3.8-10.6) k/uL RBC (4.30-5.90) m/uL Hgb (13.0-17.5) gm/dL Hct (39.0-53.0) % Plt Count (150-450) k/uL Neutrophils # (1.3-7.7) k/uL Lymphocytes # (1.0-4.8) k/uL ABG pH 7.31 L (7.35-7.45) ABG pCO2 51 H (35-45) mmHg ABG pO2 310 H (83-108) mmHg ABG Total CO2 27 H (19-24) mmol/L ABG O2 Saturation 99.0 H (94-97) % Creatinine (0.66-1.25) mg/dL Glucose (74-99) mg/dL POC Glucose (mg/dL) 116 H 109 H (75-99) mg/dL Calcium (8.4-10.2) mg/dL Magnesium (1.6-2.3) mg/dL Alkaline Phosphatase (38-126) U/L Total Protein (6.3-8.2) g/dL Albumin (3.5-5.0) g/dL Crossmatch 08/10/18 08/10/18 08/10/18 Range/Units 18:08 19:00 19:10 WBC 11.8 H (3.8-10.6) k/uL RBC 3.35 L (4.30-5.90) m/uL Hgb 10.4 L (13.0-17.5) gm/dL Hct 30.8 L (39.0-53.0) % Plt Count (150-450) k/uL Neutrophils # 9.9 H (1.3-7.7) k/uL Lymphocytes # (1.0-4.8) k/uL ABG pH (7.35-7.45) ABG pCO2 (35-45) mmHg ABG pO2 (83-108) mmHg ABG Total CO2 (19-24) mmol/L ABG O2 Saturation (94-97) % Creatinine (0.66-1.25) mg/dL Glucose (74-99) mg/dL POC Glucose (mg/dL) 114 H 126 H (75-99) mg/dL Calcium (8.4-10.2) mg/dL Magnesium (1.6-2.3) mg/dL Alkaline Phosphatase (38-126) U/L Total Protein (6.3-8.2) g/dL Albumin (3.5-5.0) g/dL Crossmatch 08/10/18 08/10/18 08/10/18 Range/Units 20:16 21:04 22:06 WBC (3.8-10.6) k/uL RBC (4.30-5.90) m/uL Hgb (13.0-17.5) gm/dL Hct (39.0-53.0) % Plt Count (150-450) k/uL Neutrophils # (1.3-7.7) k/uL Lymphocytes # (1.0-4.8) k/uL ABG pH (7.35-7.45) ABG pCO2 (35-45) mmHg ABG pO2 140 H (83-108) mmHg ABG Total CO2 25 H (19-24) mmol/L ABG O2 Saturation 98.5 H (94-97) % Creatinine (0.66-1.25) mg/dL Glucose (74-99) mg/dL POC Glucose (mg/dL) 173 H 179 H (75-99) mg/dL Calcium (8.4-10.2) mg/dL Magnesium (1.6-2.3) mg/dL Alkaline Phosphatase (38-126) U/L Total Protein (6.3-8.2) g/dL Albumin (3.5-5.0) g/dL Crossmatch 08/10/18 08/10/18 08/10/18 Range/Units 22:07 22:07 22:34 WBC 10.8 H (3.8-10.6) k/uL RBC 3.29 L (4.30-5.90) m/uL Hgb 9.9 L (13.0-17.5) gm/dL Hct 30.8 L (39.0-53.0) % Plt Count 143 L (150-450) k/uL Neutrophils # 9.6 H (1.3-7.7) k/uL Lymphocytes # 0.6 L (1.0-4.8) k/uL ABG pH (7.35-7.45) ABG pCO2 (35-45) mmHg ABG pO2 (83-108) mmHg ABG Total CO2 (19-24) mmol/L ABG O2 Saturation (94-97) % Creatinine 0.60 L (0.66-1.25) mg/dL Glucose 142 H (74-99) mg/dL POC Glucose (mg/dL) 141 H (75-99) mg/dL Calcium 7.9 L (8.4-10.2) mg/dL Magnesium (1.6-2.3) mg/dL Alkaline Phosphatase (38-126) U/L Total Protein (6.3-8.2) g/dL Albumin (3.5-5.0) g/dL Crossmatch 08/10/18 08/11/18 08/11/18 Range/Units 23:59 02:04 03:59 WBC (3.8-10.6) k/uL RBC (4.30-5.90) m/uL Hgb (13.0-17.5) gm/dL Hct (39.0-53.0) % Plt Count (150-450) k/uL Neutrophils # (1.3-7.7) k/uL Lymphocytes # (1.0-4.8) k/uL ABG pH (7.35-7.45) ABG pCO2 (35-45) mmHg ABG pO2 (83-108) mmHg ABG Total CO2 (19-24) mmol/L ABG O2 Saturation (94-97) % Creatinine (0.66-1.25) mg/dL Glucose (74-99) mg/dL POC Glucose (mg/dL) 134 H 128 H 134 H (75-99) mg/dL Calcium (8.4-10.2) mg/dL Magnesium (1.6-2.3) mg/dL Alkaline Phosphatase (38-126) U/L Total Protein (6.3-8.2) g/dL Albumin (3.5-5.0) g/dL Crossmatch 08/11/18 08/11/18 08/11/18 Range/Units 04:00 04:00 06:11 WBC (3.8-10.6) k/uL RBC 3.17 L (4.30-5.90) m/uL Hgb 9.5 L (13.0-17.5) gm/dL Hct 29.5 L (39.0-53.0) % Plt Count 132 L (150-450) k/uL Neutrophils # 8.3 H (1.3-7.7) k/uL Lymphocytes # 0.7 L (1.0-4.8) k/uL ABG pH (7.35-7.45) ABG pCO2 (35-45) mmHg ABG pO2 (83-108) mmHg ABG Total CO2 (19-24) mmol/L ABG O2 Saturation (94-97) % Creatinine 0.65 L (0.66-1.25) mg/dL Glucose 121 H (74-99) mg/dL POC Glucose (mg/dL) 129 H (75-99) mg/dL Calcium 8.1 L (8.4-10.2) mg/dL Magnesium (1.6-2.3) mg/dL Alkaline Phosphatase 36 L (38-126) U/L Total Protein 5.2 L (6.3-8.2) g/dL Albumin 3.1 L (3.5-5.0) g/dL Crossmatch 08/11/18 Range/Units 07:03 WBC (3.8-10.6) k/uL RBC (4.30-5.90) m/uL Hgb (13.0-17.5) gm/dL Hct (39.0-53.0) % Plt Count (150-450) k/uL Neutrophils # (1.3-7.7) k/uL Lymphocytes # (1.0-4.8) k/uL ABG pH (7.35-7.45) ABG pCO2 (35-45) mmHg ABG pO2 (83-108) mmHg ABG Total CO2 (19-24) mmol/L ABG O2 Saturation (94-97) % Creatinine (0.66-1.25) mg/dL Glucose (74-99) mg/dL POC Glucose (mg/dL) 123 H (75-99) mg/dL Calcium (8.4-10.2) mg/dL Magnesium (1.6-2.3) mg/dL Alkaline Phosphatase (38-126) U/L Total Protein (6.3-8.2) g/dL Albumin (3.5-5.0) g/dL Crossmatch - Imaging and Cardiology Chest x-ray: report reviewed, image reviewed Assessment and Plan Assessment: 1. Double vessel coronary artery disease, status post to arterial vessel coronary artery bypass graft surgery 2. Severe aortic valve stenosis on a bicuspid valve, status post bioprosthetic aortic valve replacement 3. Preserved left ventricular function 4. Recent non-STEMI 5. Recent diagnosis of paroxysmal atrial fibrillation, status post bilateral pulmonary vein isolation and exclusion of the left atrial appendage 6. Recent syncopal episode in February 2018 7. Hypertension 8. Hyperlipidemia, treated 9. Hypospadias with surgical repair as an infant 10. Family history of premature coronary artery disease 11. Postoperative acute blood loss anemia, expected Plan: 1. Continue aspirin, statin, Plavix, beta silvia. Will increase beta silvia therapy as tolerated. 2. Will add Norvasc for radial artery spasm. Discontinue IV nitro half hour after administration of Norvasc. 3. Wean O2 as tolerated. Encourage incentive spirometry 10 times every hour while awake. 4. Increase activity, ambulate as tolerated. PT/OT/cardiac rehab following. 5. Will monitor daily labs and x-rays. Electrolyte replacement per protocol. No transfusion. 6. Pain control with current medication regimen. 7. Insulin management per primary care service. 8. GI/DVT prophylaxis. 9. Bronchodilators per pulmonology. 10. Discontinue Del Rio. Connect Cordis to continuous CVP monitoring. 11. Will keep chest tubes, arterial line, Cheek for another 24 hours. Per uro logy, okay to discontinue Cheek catheter according to post open heart protocol. 12. More recommendations to follow based on patient's progress. Time with Patient: Greater than 30
[2018-08-11] MEDS ORDERED: BISACODYL 10 MG SUPP RECTAL PRN (09:00)
[2018-08-11] MEDS ORDERED: PANTOPRAZOLE 40 MG/10 ML VIAL IVP SCH (09:00)
[2018-08-11] MEDS ORDERED: MAGNESIUM HYDROXIDE 2,400 MG/10 ML CUP PO PRN (09:00)
[2018-08-11 09:05] LABS: Glucose,Whole Blood 129 mg/dL (75-99)
[2018-08-11] MEDS: HYDROcodone/APAP 5-325MG 1 EACH TAB PO PRN ×2 (09:10→20:21)
[2018-08-11] MEDS: ASPIRIN 325 MG TAB PO SCH (09:12)
[2018-08-11] MEDS: amLODIPine 2.5 MG TAB PO SCH (09:12)
[2018-08-11] MEDS: ceFAZolin IN SWFI 2 GM/20 ML SYRINGE IVP SCH (09:12)
[2018-08-11] MEDS: ATORVASTATIN 40 MG TAB PO SCH (09:12)
[2018-08-11] MEDS: MUPIROCIN 2% OINT 22 GM TUBE NASAL SCH ×2 (09:12→20:20)
[2018-08-11] MEDS: HEPARIN SODIUM,PORCINE 5,000 UNIT/ML 1 ML VIAL SQ SCH ×2 (09:13→16:00)
[2018-08-11] MEDS: METOPROLOL TARTRATE 12.5 MG TAB PO SCH ×2 (09:13→20:19)
[2018-08-11] MEDS: CLOPIDOGREL 75 MG TAB PO SCH (09:13)
--- NOTE | 2018-08-11 10:08 | CONS ---
CONSULTATION Mr. Volodymyr Bryan was recently evaluated by me when he was in the hospital and I performed coronary angiography. This gentleman has significant ostial LAD disease and proximal circumflex disease in addition to severe aortic stenosis. Yesterday, he underwent aortic valve replacement with a pericardial bioprosthesis #23, he also has underlying atrial fibrillation paroxysmal in nature, so he did have a pulmonary vein isolation procedure as well as an atrial clip for exclusion of left atrial appendage. Additionally, he had 2 arterial bypasses, 1 was a HAWTHORNE to LAD. The other was a free radial artery graft from the aorta to the second obtuse marginal. Postprocedure he is doing excellent, extubated, not on any pressors in sinus rhythm. Seems to be doing remarkably well. PAST MEDICAL HISTORY: 1. History of aortic valve disease that was diagnosed in February, but patient did not come back for followup and chose to come back just 2 weeks ago. 2. CAD with significant ostial disease in the LAD and mid and proximal circumflex detected by ultrasound. 3. Past history of smoking. 4. Paroxysmal atrial fibrillation. Please refer to the recent information for most of his other hospitalization issues. This patient has paroxysmal atrial fibrillation, non ST elevation [place], hyperlipidemia, hypertension, and multivessel CAD. MEDICATIONS: At home on discharge include aspirin 81 mg daily, Eliquis was held prior to surgery, atorvastatin 40 mg daily, metoprolol 25 mg daily. PHYSICAL EXAMINATION: Blood pressure is 112/70, pulse rate is about 80, sinus. HEENT unremarkable. Fundus was not examined by me. Neck is supple. No JVD. S1-S2 heard normally. Pericardial rub is audible. LUNGS: Bilateral air entry. Somewhat fairly decent. Abdomen is soft. Lower extremities reveal diminished pulses. Central nervous system is normal. RECOMMENDATIONS: Continue current medical therapy. Aggressive incentive spirometry and pulmonary toilet is advised. Patient is doing remarkably well. Anticoagulation to be resumed whenever it is okay with the surgeon. MMODL / IJN: [id number] /
[2018-08-11 10:47] LABS: Glucose,Whole Blood 123 mg/dL (75-99)
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
[2018-08-11] MEDS: LACTATED RINGERS 1,000 ML IV SCH (12:00)
[2018-08-11 12:06] LABS: Glucose,Whole Blood 118 mg/dL (75-99)
[2018-08-11 12:42] VITALS: BMI 28.6
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
[2018-08-11 13:02] LABS: Glucose,Whole Blood 143 mg/dL (75-99)
[2018-08-11 15:54] LABS: Glucose,Whole Blood 112 mg/dL (75-99)
[2018-08-11 17:04] LABS: Glucose,Whole Blood 107 mg/dL (75-99)
[2018-08-11 18:09] LABS: Glucose,Whole Blood 126 mg/dL (75-99)
[2018-08-11] MEDS: SENNOSIDES-DOCUSATE SODIUM 1 EACH TAB PO SCH (20:20)
[2018-08-11 21:31] LABS: Glucose,Whole Blood 137 mg/dL (75-99)
[2018-08-12] MEDS: KETOROLAC 30 MG/ML 1 ML VIAL IVP SCH ×5 (00:24→23:39)
[2018-08-12] MEDS: HEPARIN SODIUM,PORCINE 5,000 UNIT/ML 1 ML VIAL SQ SCH ×4 (00:24→23:44)
[2018-08-12 00:31] LABS: Glucose,Whole Blood 115 mg/dL (75-99)
[2018-08-12 04:29] LABS: Basophils % (A) 0 %; Eosinophils # (A) 0.1 k/uL (0-0.7); Eosinophils % (A) 1 %; HCT 23.3 % (39.0-53.0); Lymphocytes # (A) 1.5 k/uL (1.0-4.8); Lymphocytes % (A) 17 %; MCH 30.6 pg (25.0-35.0); MCHC 33.2 g/dL (31.0-37.0); Mean Platelet Volume 8.6; Monocytes # (A) 0.4 k/uL (0-1.0); Monocytes % (A) 5 %; Neutrophils # (A) 7.1 k/uL (1.3-7.7); Neutrophils % (A) 77 %; Platelet Count 118 k/uL (150-450); RBC 2.54 m/uL (4.30-5.90); RDW 13.1 % (11.5-15.5); WBC 9.2 k/uL (3.8-10.6)
[2018-08-12 04:33] LABS: Ionized Calcium 4.8 mg/dL (4.5-5.3)
[2018-08-12 04:36] LABS: HGB 7.7 gm/dL (13.0-17.5)
[2018-08-12 04:40] LABS: ALT 24 U/L (21-72); AST 37 U/L (17-59); African American GFR (CKD) >90 (>60 ml/min/1.73 sqM); Albumin 2.9 g/dL (3.5-5.0); Alkaline Phosphatase 44 U/L (38-126); Anion Gap 4 mmol/L; Blood Urea Nitrogen 16 mg/dL (9-20); Calcium 7.9 mg/dL (8.4-10.2); Carbon Dioxide 28 mmol/L (22-30); Chloride 102 mmol/L (98-107); Glucose 115 mg/dL (74-99); Potassium 4.3 mmol/L (3.5-5.1); Sodium 134 mmol/L (137-145); Total Bilirubin 0.5 mg/dL (0.2-1.3); Total Protein 5.1 g/dL (6.3-8.2)
--- NOTE | 2018-08-12 06:13 | XR ---
EXAMINATION TYPE: XR chest 1V portable DATE OF EXAM: 08/12/2018 HISTORY: Post Operative Cardiac Surgery. REFERENCE: Previous study dated 08/11/2018. FINDINGS: There has been a midline sternotomy. A left pleural drain remains in place. The patient Swa n-John catheter has been removed. The left basilar airspace disease. Small left effusion. The heart is enlarged. No definite pneumothor ax is seen. IMPRESSION: CONTINUING POSTOPERATIVE CHANGE.
[2018-08-12] MEDS ORDERED: ACETAMINOPHEN TAB 500 MG TAB PO PRN (06:46)
[2018-08-12] MEDS: ASCORBIC ACID 500 MG TAB PO SCH ×2 (07:02→17:50)
[2018-08-12] MEDS: FERROUS SULFATE 325 MG TAB PO SCH ×2 (07:02→17:50)
[2018-08-12] MEDS: PANTOPRAZOLE 40 MG TABLET PO SCH (07:03)
[2018-08-12 07:09] LABS: Glucose,Whole Blood 120 mg/dL (75-99)
--- NOTE | 2018-08-12 08:32 | P.PN ---
Subjective Progress Note Date: 08/12/18 Principal diagnosis: Double vessel coronary artery disease, severe aortic valve stenosis on a bicuspid valve, preserved left ventricular function. Previous medical history of recent non-STEMI, recent diagnosis of paroxysmal atrial fibrillation, recent syncopal episode, hypertension, hyperlipidemia, hypospadias with surgical repair as an , and family history of premature coronary artery disease. POD #2 double arterial coronary artery bypass grafting using the left internal mammary artery to the left anterior descending artery, the left radial artery from the aorta to the second obtuse marginal artery. Aortic valve replacement using a 23 mm pericardial bioprosthesis, Inspiris. Bilateral pulmonary vein isolation using the radiofrequency bipolar clamp from Atri[employer] for exclusion of the left atrial appendage using a 35 mm AtriClip. Left radial artery harvesting. Intraoperative transesophageal echocardiogram. Epi-aortic scanning. Intraoperative graft flow measurements using the Evercam system. Postoperative acute blood loss anemia, expected outcome secondary to cardiopulmonary bypass pump and hemodilution. The patient's currently sitting up in a recliner in no acute distress. States pain is controlled on current medication regimen, denies shortness of breath. Remains in normal sinus rhythm although slightly tachycardic, hemodynamically stable on no inotropes or pressors. Oark discontinued yesterday, Cheek discontinued this morning. Ambulated in the hallway yesterday. No new complaints. Objective - Vital Signs Vital signs: Vital Signs Temp 98.1 F 08/12/18 04:00 Pulse 106 H 08/12/18 07:00 Resp 18 08/12/18 07:54 BP 98/63 08/12/18 07:00 Pulse Ox 92 L 08/12/18 07:00 Intake & Output 08/11/18 08/12/18 08/12/18 18:59 06:59 18:59 Intake Total 862.717 609 Output Total 920 1125 Balance -57.283 -516 Weight 90.5 kg 90.3 kg Intake: IV 371 359 CO/CI 20 Lactated Ringers 1,000 ml 270 260 @ 20 mls/hr IV .Q24H JOVANNY Rx#:[id number] Pressure Bag 81 99 Intake, IV Titration 11.717 Amount Insulin Regular 100 unit 11.717 In Sodium Chloride 0.9% 100 ml @ Per Protocol IV .Q0M JOVANNY Rx#:[id number] Oral 480 250 Output: Drainage 110 250 L Pleural 60 70 L Radial 20 30 MSx2 30 150 Urine 810 875 Other: Voiding Method Indwelling Catheter Indwelling Catheter ABP, PAP, CO, CI - Last Documented Arterial Blood Pressure 137/65 Pulmonary Artery Pressure 19/9 Cardiac Output 6.3 Cardiac Index 3.1 - Constitutional General appearance: Present: cooperative, no acute distress - Respiratory Details: Lungs sounds diminished bilaterally. Respirations even, nonlabored. Currently on room air with oxygen saturation 96%. Able to achieve 1000 mL on his incentive spirometry. Strong cough. Mediastinal chest tube to continuous wall suction, 130 mL serosanguineous drainage overnight, 200 mL in the last 24 hours. Left pleural chest tube to continuous wall suction, 25 mL serosanguineous drainage overnight, 150 mL in the last 24 hours. No air leaks present. - Cardiovascular Details: S1, S2 present. Regular rate and rhythm, sinus rhythm to sinus tach on telemet ry. Sternum stable. A/V epicardial pacemaker wires present, grounded. Palpable peripheral pulses bilaterally. No edema present. No calf pain or tenderness noted. Right internal jugular Cordis, right radial arterial line present. Heart hugger in place with patient demonstrating appropriate use. Antiembolism stockings, SCDs present. - Gastrointestinal Gastrointestinal Comment(s): Abdomen soft, nontender, nondistended. Hypoactive bowel sounds present 4 quadrants. Tolerating diet. Positive belching, negative flatus, negative bowel movement. - Genitourinary Genitourinary Comment(s): Cheek discontinued at midnight, patient has already voided 300 mL. - Integumentary Integumentary Comment(s): Skin is warm and dry with evidence of good perfusion. Anterior chest incision well approximated and covered with dry intact dressing. Left radial artery harvest site well approximated, ROSALBA drain present with minimal drainage. Patient does have some numbness to his left hand but no pain, can wiggle all fingers and provide appropriate compass operator. Left hand is warm with good cap refill. - Neurologic Neurologic: Present: CNII-XII intact - Musculoskeletal Musculoskeletal: Present: gait normal, strength equal bilaterally - Psychiatric Psychiatric: Present: A&O x's 3, appropriate affect, intact judgment & insight - Allied health notes Allied health notes reviewed: nursing - Labs CBC & Chem 7: 08/12/18 04:20 08/12/18 04:20 Labs: Abnormal Lab Results - Last 24 Hours (Table) 08/11/18 08/11/18 08/11/18 Range/Units 09:04 10:45 12:04 RBC (4.30-5.90) m/uL Hgb (13.0-17.5) gm/dL Hct (39.0-53.0) % Plt Count (150-450) k/uL Sodium (137-145) mmol/L Glucose (74-99) mg/dL POC Glucose (mg/dL) 129 H 123 H 118 H (75-99) mg/dL Calcium (8.4-10.2) mg/dL Total Protein (6.3-8.2) g/dL Albumin (3.5-5.0) g/dL 08/11/18 08/11/18 08/11/18 Range/Units 13:00 15:53 17:03 RBC (4.30-5.90) m/uL Hgb (13.0-17.5) gm/dL Hct (39.0-53.0) % Plt Count (150-450) k/uL Sodium (137-145) mmol/L Glucose (74-99) mg/dL POC Glucose (mg/dL) 143 H 112 H 107 H (75-99) mg/dL Calcium (8.4-10.2) mg/dL Total Protein (6.3-8.2) g/dL Albumin (3.5-5.0) g/dL 08/11/18 08/11/18 08/12/18 Range/Units 18:07 21:29 00:29 RBC (4.30-5.90) m/uL Hgb (13.0-17.5) gm/dL Hct (39.0-53.0) % Plt Count (150-450) k/uL Sodium (137-145) mmol/L Glucose (74-99) mg/dL POC Glucose (mg/dL) 126 H 137 H 115 H (75-99) mg/dL Calcium (8.4-10.2) mg/dL Total Protein (6.3-8.2) g/dL Albumin (3.5-5.0) g/dL 08/12/18 08/12/18 08/12/18 Range/Units 04:20 04:20 07:08 RBC 2.54 L (4.30-5.90) m/uL Hgb 7.7 L D (13.0-17.5) gm/dL Hct 23.3 L (39.0-53.0) % Plt Count 118 L (150-450) k/uL Sodium 134 L (137-145) mmol/L Glucose 115 H (74-99) mg/dL POC Glucose (mg/dL) 120 H (75-99) mg/dL Calcium 7.9 L (8.4-10.2) mg/dL Total Protein 5.1 L (6.3-8.2) g/dL Albumin 2.9 L (3.5-5.0) g/dL - Imaging and Cardiology Chest x-ray: report reviewed, image reviewed Assessment and Plan Assessment: 1. Double vessel coronary artery disease, status post to arterial vessel coronary artery bypass graft surgery 2. Severe aortic valve stenosis on a bicuspid valve, status post bioprosthetic aortic valve replacement 3. Preserved left ventricular function 4. Recent non-STEMI 5. Recent diagnosis of paroxysmal atrial fibrillation, status post bilateral pulmonary vein isolation and exclusion of the left atrial appendage 6. Recent syncopal episode in February 2018 7. Hypertension 8. Hyperlipidemia, treated 9. Hypospadias with surgical repair as an 10. Family history of premature coronary artery disease 11. Postoperative acute blood loss anemia, expected Plan: 1. Continue aspirin, statin, Plavix, beta silvia. Will increase beta silvia therapy as tolerated, increased to 25 mg. 2. Continue Norvasc for radial artery spasm. Do not discontinue without discussing with cardiothoracic surgery. 3. Encourage incentive spirometry 10 times every hour while awake. 4. Increase activity, ambulate as tolerated. PT/OT/cardiac rehab following. 5. Will monitor daily labs and x-rays. Electrolyte replacement per protocol. No transfusion. Iron/vitamin C added. 6. Pain control with current medication regimen. 7. Insulin management per primary care service. 8. GI/DVT prophylaxis. 9. Bronchodilators per pulmonology. 10. Likely will discontinue chest tubes, Cordis, arterial line. 11. Will discontinue ROSALBA. 12. Will place transfer orders for [address] [place] [address] cardiac stepdown unit. May transfer when bed available. 13. More recommendations to follow based on patient's progress. Time with Patient: Greater than 30
[2018-08-12] MEDS: IPRATROPIUM-ALBUTEROL 3 ML NEB INHALATION SCH ×4 (08:52→19:21)
[2018-08-12] MEDS: HYDROcodone/APAP 5-325MG 1 EACH TAB PO PRN ×2 (08:56→22:07)
[2018-08-12] MEDS: MUPIROCIN 2% OINT 22 GM TUBE NASAL SCH ×2 (08:57→20:51)
[2018-08-12] MEDS: ASPIRIN 325 MG TAB PO SCH (08:58)
[2018-08-12] MEDS: amLODIPine 2.5 MG TAB PO SCH (08:58)
[2018-08-12] MEDS: ATORVASTATIN 40 MG TAB PO SCH (08:58)
[2018-08-12] MEDS: CLOPIDOGREL 75 MG TAB PO SCH (08:58)
[2018-08-12] MEDS ORDERED: METOPROLOL TARTRATE 25 MG TAB PO SCH (09:00)
--- NOTE | 2018-08-12 09:30 | PN ---
PROGRESS NOTE Mr. Bryan is in sinus rhythm. He is doing well postoperatively, had a valve replacement and 2 arterial grafts to LAD and circumflex marginal. He is doing well. S1-S2 heard normally. No significant rub. Lungs reveal improved air entry. Abdomen and lower extremity exam unchanged. Plan is to continue current medications. Incentive spirometry. Patient is making good progress. MMODL / IJN: [id number] /
[2018-08-12] MEDS ORDERED: amLODIPine 5 MG TAB PO STA (09:34)
--- NOTE | 2018-08-12 10:20 | PN ---
PROGRESS NOTE DATE OF SERVICE: August 12, 2018. The patient is postop day #2, status post aortic valve replacement for a bicuspid aortic valve and aortic stenosis and 2 vessel bypass grafting. The patient is doing relatively well. He is sitting up in bed. The patient is not requiring any supplemental oxygen. The patient is on lactated Ringer's at 20 mL an hour. The patient had a recent non ST-segment elevation myocardial infarction, hypospadias requiring Cheek catheter, hypertension, hyperlipidemia, and osteoarthritis. The patient is doing well. He probably could be transferred out of the unit today according to Cardiothoracic. He has no complaints today. States his breathing is fine. Doing about 1000 on the incentive spirometer. PHYSICAL EXAMINATION: Current vital signs are reviewed. Temperature is 98.1, heart rate about 100, respiratory rate 20, blood pressure 104/65, mean 78, room-air saturation 97%. Appears in no acute distress. HEENT examination is grossly unremarkable. No supplemental oxygen. Mucous membranes are moist. NECK: Supple. Full range of motion. No adenopathy, thyromegaly or neck vein distention. CARDIOVASCULAR examination reveals regular rhythm rate. S1, S2 normal. No S3, S4, or murmur. LUNGS: Reveal mostly clear breath sounds. A few scattered rhonchi. No wheezes or crackles. ABDOMEN: Soft. Bowel sounds are heard. EXTREMITIES are intact. No cyanosis, clubbing, or edema. Labs, x-rays and medications are all reviewed. White count is 9.2, hemoglobin 7.7, hematocrit 23.3, platelet count 118,000. Sodium 134, potassium 4.3, chloride 102, CO2 of 28. BUN and creatinine were normal. Albumin 2.9. Chest x-ray shows some small atelectasis in the left lung base. ASSESSMENT: 1. Postoperative day #2 status post aortic valve replacement for a bicuspid aortic valve and aortic stenosis, as well as 2 vessel bypass grafting. 2. Recent non ST-segment elevation myocardial infarction. 3. Coronary artery disease. 4. Hypertension by history. 5. Hyperlipidemia. 6. Degenerative joint disease. 7. History of hypospadias requiring Cheek catheter placement. PLAN: The patient is doing well. No additional recommendations are made. We will continue to follow. I believe all the tubes and lines are currently out. Possible transfer out of the unit to the surgical floor. No additional recommendations are made. Prognosis is guarded. We will continue to follow. MMODL / IJN: [id number] /
[2018-08-12 12:16] LABS: Glucose,Whole Blood 117 mg/dL (75-99)
--- NOTE | 2018-08-12 17:31 | P.PN ---
Subjective Progress Note Date: 08/12/18 The patient's and examined at bedside, doing well. Reportedly ambulated down the nelson earlier today. Hemoglobin 7.7g today. Swanz was removed yesterday. Continues to be in normal sinus rhythm, hemodynamically stable. Cheek discontinued earlier today, continues to achieve approximate 1 L on his IS Objective - Vital Signs Vital signs: Vital Signs Temp 98 F 08/12/18 12:00 Pulse 87 08/12/18 16:06 Resp 18 08/12/18 14:00 BP 83/54 08/12/18 14:00 Pulse Ox 94 L 08/12/18 14:00 Intake & Output 08/11/18 08/12/18 08/12/18 18:59 06:59 18:59 Intake Total 862.717 609 340 Output Total 920 1125 330 Balance -57.283 -516 10 Weight 90.5 kg 90.3 kg Intake: IV 371 359 100 CO/CI 20 Lactated Ringers 1,000 ml 270 260 100 @ 20 mls/hr IV .Q24H JOVANNY Rx#:[id number] Pressure Bag 81 99 Intake, IV Titration 11.717 Amount Insulin Regular 100 unit 11.717 In Sodium Chloride 0.9% 100 ml @ Per Protocol IV .Q0M JOVANNY Rx#:[id number] Oral 480 250 240 Output: Drainage 110 250 80 L Pleural 60 70 40 L Radial 20 30 MSx2 30 150 40 Urine 810 875 250 Other: Voiding Method Indwelling Catheter Indwelling Catheter ABP, PAP, CO, CI - Last Documented Arterial Blood Pressure 137/65 Pulmonary Artery Pressure 19/9 Cardiac Output 6.3 Cardiac Index 3.1 - Exam Constitutional: No acute distress, conversant, pleasant Eyes: Anicteric sclerae, moist conjunctiva, no lid-lag, PERRLA ENMT: NC/AT,Oropharynx clear, no erythema, exudates Neck:Supple, FROM, no masses, or JVD, No carotid bruits; No thyromegaly Lungs: Diminished in the bases bilaterally currently on room air, doing approximately 1 L on IS, mediastinal tube and left pleural chest tube in place Cardiovascular: Heart regular in rate and rhythm, No murmurs, gallops, or rubs no peripheral edema, heart hugger, right IJ [place]/Cordis, right radiat art line Abdominal: Soft Nontender, nom distended, no guarding, no rebound or rigidity, Normoactive bowel sounds No hepatomegaly, No splenomegaly, No palpable mass No abdominal wall hernia noted Skin: Normal temperature, tone, texture, turgor, No induration No subcutaneous nodules, No rash, lesions, No ulcers Extremities:No digital cyanosis No clubbing, Pedal pulses intact and symmetrical Radial pulses intact and symmetrical Normal gait and station, No calf tenderness Psychiatric: Alert and oriented to person, place and time, Appropriate affect Intact judgement Neuro: Muscles Strength 5/5 in all 4 extremities, Sensation to light touch grossly present throughout, Cranial nerves II-XII grossly intact. No focal sensory deficits - Labs CBC & Chem 7: 08/12/18 04:20 08/12/18 04:20 Labs: Abnormal Lab Results - Last 24 Hours (Table) 08/11/18 08/11/18 08/12/18 Range/Units 18:07 21:29 00:29 RBC (4.30-5.90) m/uL Hgb (13.0-17.5) gm/dL Hct (39.0-53.0) % Plt Count (150-450) k/uL Sodium (137-145) mmol/L Glucose (74-99) mg/dL POC Glucose (mg/dL) 126 H 137 H 115 H (75-99) mg/dL Calcium (8.4-10.2) mg/dL Total Protein (6.3-8.2) g/dL Albumin (3.5-5.0) g/dL 08/12/18 08/12/18 08/12/18 Range/Units 04:20 04:20 07:08 RBC 2.54 L (4.30-5.90) m/uL Hgb 7.7 L D (13.0-17.5) gm/dL Hct 23.3 L (39.0-53.0) % Plt Count 118 L (150-450) k/uL Sodium 134 L (137-145) mmol/L Glucose 115 H (74-99) mg/dL POC Glucose (mg/dL) 120 H (75-99) mg/dL Calcium 7.9 L (8.4-10.2) mg/dL Total Protein 5.1 L (6.3-8.2) g/dL Albumin 2.9 L (3.5-5.0) g/dL 08/12/18 Range/Units 12:14 RBC (4.30-5.90) m/uL Hgb (13.0-17.5) gm/dL Hct (39.0-53.0) % Plt Count (150-450) k/uL Sodium (137-145) mmol/L Glucose (74-99) mg/dL POC Glucose (mg/dL) 117 H (75-99) mg/dL Calcium (8.4-10.2) mg/dL Total Protein (6.3-8.2) g/dL Albumin (3.5-5.0) g/dL Assessment and Plan Assessment: Coronary artery disease status post double vessel arterial bypass Severe aortic valve stenosis status post bioprosthetic aortic valve replacement Essential hypertension Postoperative acute blood loss anemia Hyperlipidemia Hypospadias History of non-STEMI History of paroxysmal A. fib Plan: The patient is admitted to CTS team is doing well postop day #2 status post 2 vessel CABG with double arterial bypass and bioprosthetic aortic valve replacement & bilateral pulmonary vein isolation exclusion of the left atrial appendage The patient is continuing aspirin statin therapy Plavix and beta silvia. Currently doing well on room air, working well with his incentive spirometry achieving approximately 1 L at this time. Pain seems to be well managed patient is currently on Accu-Cheks with correctional scale coverage per post CABG protocol, plan is to discontinue chest tube Cordis, ROSALBA and arterial line today. Noted postop anemia which is an expected outcome secondary to cardiopulmonary bypass pump and hemodilution Plans for cardiac rehab on discharge. Patient stable for transfer to the medical floor We'll continue to monitor patient's clinical course.
[2018-08-12 17:37] LABS: Glucose,Whole Blood 142 mg/dL (75-99)
[2018-08-12] MEDS: METOPROLOL TARTRATE 25 MG TAB PO SCH ×2 (17:50→23:39)
[2018-08-12] MEDS: SENNOSIDES-DOCUSATE SODIUM 1 EACH TAB PO SCH (17:57)
[2018-08-12 20:59] LABS: Glucose,Whole Blood 122 mg/dL (75-99)
[2018-08-13 06:22] LABS: HCT 20.5 % (39.0-53.0); MCH 30.8 pg (25.0-35.0); MCHC 33.4 g/dL (31.0-37.0); MCV 92.4 fL (80.0-100.0); Mean Platelet Volume 7.9; Platelet Count 127 k/uL (150-450); RBC 2.22 m/uL (4.30-5.90); RDW 13.5 % (11.5-15.5); WBC 8.6 k/uL (3.8-10.6)
[2018-08-13 06:36] LABS: HGB 6.8 gm/dL (13.0-17.5)
[2018-08-13] MEDS: KETOROLAC 30 MG/ML 1 ML VIAL IVP SCH ×4 (06:50→22:55)
[2018-08-13] MEDS: FERROUS SULFATE 325 MG TAB PO SCH ×2 (06:52→18:20)
[2018-08-13] MEDS: ASCORBIC ACID 500 MG TAB PO SCH ×2 (06:52→18:20)
[2018-08-13] MEDS: PANTOPRAZOLE 40 MG TABLET PO SCH (06:52)
[2018-08-13 06:56] LABS: Glucose,Whole Blood 123 mg/dL (75-99)
[2018-08-13 07:04] LABS: African American GFR (CKD) >90 (>60 ml/min/1.73 sqM); Anion Gap 5 mmol/L; Blood Urea Nitrogen 17 mg/dL (9-20); Carbon Dioxide 28 mmol/L (22-30); Chloride 102 mmol/L (98-107); Glucose 97 mg/dL (74-99); Potassium 4.6 mmol/L (3.5-5.1); Sodium 135 mmol/L (137-145)
--- NOTE | 2018-08-13 07:50 | XR ---
EXAMINATION TYPE: XR chest 2V DATE OF EXAM: 08/13/2018 COMPARISON: 08/12/2018 HISTORY: Status post cardiac surgery. Follow-up exam. TECHNIQUE: Frontal and lateral views of the chest are obtained. FINDINGS: Cardiomediastinal silhouette is enlarged with postoperative changes as seen on the prior. Trace bilateral pleural effusions, left greater than right are unchanged. No new pulmonary vascular c ongestion or pneumothorax. Mild degenerative changes of the spine. Improving left basilar airspace di sease. IMPRESSION: Improving left basilar airspace disease and similar trace pleural effusions, left greate r than right status post cardiac surgery.
[2018-08-13] MEDS: IPRATROPIUM-ALBUTEROL 3 ML NEB INHALATION SCH ×4 (08:32→19:33)
[2018-08-13] MEDS: ATORVASTATIN 40 MG TAB PO SCH (08:57)
[2018-08-13] MEDS: CLOPIDOGREL 75 MG TAB PO SCH (08:57)
[2018-08-13] MEDS: ASPIRIN 325 MG TAB PO SCH (08:57)
[2018-08-13] MEDS: HEPARIN SODIUM,PORCINE 5,000 UNIT/ML 1 ML VIAL SQ SCH ×3 (08:57→22:54)
--- NOTE | 2018-08-13 09:34 | P.PN ---
Subjective Progress Note Date: 08/13/18 Principal diagnosis: Double vessel coronary artery disease, severe aortic valve stenosis on a bicuspid valve, preserved left ventricular function. Previous medical history of recent non-STEMI, recent diagnosis of paroxysmal atrial fibrillation, recent syncopal episode, hypertension, hyperlipidemia, hypospadias with surgical repair as an , and family history of premature coronary artery disease. POD #3 double arterial coronary artery bypass grafting using the left internal mammary artery to the left anterior descending artery, the left radial artery from the aorta to the second obtuse marginal artery. Aortic valve replacement using a 23 mm pericardial bioprosthesis, Inspiris. Bilateral pulmonary vein isolation using the radiofrequency bipolar clamp from [employer] for exclusion of the left atrial appendage using a 35 mm AtriClip. Left radial artery harvesting. Intraoperative transesophageal echocardiogram. Epi-aortic scanning. Intraoperative graft flow measurements using the [email or web address] system. Postoperative acute blood loss anemia, expected outcome secondary to cardiopulmonary bypass pump and hemodilution. The patient's currently sitting up in a recliner in no acute distress. States pain is controlled on current medication regimen, denies shortness of breath. Remains in normal sinus rhythm, hemodynamically stable on no inotropes or pressors. Has been ambulating in the hallway without difficulty. Chest tubes, Cordis, arterial line, Cheek were discontinued yesterday. Transfer orders were placed for 3 S. cardiac stepdown unit, however there are no beds available. No new concerns. Objective - Vital Signs Vital signs: Vital Signs Temp 98.3 F 08/13/18 08:00 Pulse 98 08/13/18 08:40 Resp 23 08/13/18 08:00 BP 94/55 08/13/18 08:00 Pulse Ox 96 08/13/18 08:00 Intake & Output 08/12/18 08/13/18 08/13/18 18:59 06:59 18:59 Intake Total 580 240 Output Total 730 1100 Balance -150 -860 Weight 94.5 kg Intake: IV 100 Lactated Ringers 1,000 ml 100 @ 20 mls/hr IV .Q24H JOVANNY Rx#:[id number] Oral 480 240 Output: Drainage 80 L Pleural 40 MSx2 40 Urine 650 1100 Other: Voiding Method Urinal ABP, PAP, CO, CI - Last Documented Arterial Blood Pressure 137/65 Pulmonary Artery Pressure 19/9 Cardiac Output 6.3 Cardiac Index 3.1 - Constitutional General appearance: Present: cooperative, no acute distress - Respiratory Details: Lungs sounds diminished bilaterally. Respirations even, nonlabored. Currently on room air with oxygen saturation 96%. Able to achieve 1000 mL on his incentive spirometry. Strong cough. - Cardiovascular Details: S1, S2 present. Regular rate and rhythm, sinus rhythm to sinus tach on telemetry. Sternum stable. A/V epicardial pacemaker wires present, grounded. Palpable peripheral pulses bilaterally. No edema present. No calf pain or tenderness noted. Heart hugger in place with patient demonstrating appropriate use. Antiembolism stockings, SCDs present. - Gastrointestinal Gastrointestinal Comment(s): Abdomen soft, nontender, nondistended. Active bowel sounds present 4 quadrants. Tolerating diet. Positive bowel movement. - Genitourinary Genitourinary Comment(s): Patient continues to void clear, yellow urine. - Integumentary Integumentary Comment(s): Skin is warm and dry with evidence of good perfusion. Anterior chest incision well approximated and covered with dry intact dressing. Left radial artery harvest site well approximated. 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 Left hand is warm with good cap refill. - Neurologic Neurologic: Present: CNII-XII intact - Musculoskeletal Musculoskeletal: Present: gait normal, strength equal bilaterally - Psychiatric Psychiatric: Present: A&O x's 3, appropriate affect, intact judgment & insight - Allied health notes Allied health notes reviewed: nursing - Labs CBC & Chem 7: 08/13/18 05:30 08/13/18 05:30 Labs: Abnormal Lab Results - Last 24 Hours (Table) 08/12/18 08/12/18 08/12/18 Range/Units 12:14 17:35 20:57 RBC (4.30-5.90) m/uL Hgb (13.0-17.5) gm/dL Hct (39.0-53.0) % Plt Count (150-450) k/uL Sodium (137-145) mmol/L POC Glucose (mg/dL) 117 H 142 H 122 H (75-99) mg/dL Calcium (8.4-10.2) mg/dL 08/13/18 08/13/18 08/13/18 Range/Units 05:30 05:30 06:53 RBC 2.22 L (4.30-5.90) m/uL Hgb 6.8 L* (13.0-17.5) gm/dL Hct 20.5 L (39.0-53.0) % Plt Count 127 L (150-450) k/uL Sodium 135 L (137-145) mmol/L POC Glucose (mg/dL) 123 H (75-99) mg/dL Calcium 8.0 L (8.4-10.2) mg/dL - Imaging and Cardiology Chest x-ray: report reviewed, image reviewed Assessment and Plan Assessment: 1. Double vessel coronary artery disease, status post to arterial vessel coronary artery bypass graft surgery 2. Severe aortic valve stenosis on a bicuspid valve, status post bioprosthetic aortic valve replacement 3. Preserved left ventricular function 4. Recent non-STEMI 5. Recent diagnosis of paroxysmal atrial fibrillation, status post bilateral pulmonary vein isolation and exclusion of the left atrial appendage 6. Recent syncopal episode in February 2018 7. Hypertension 8. Hyperlipidemia, treated 9. Hypospadias with surgical repair as an infant 10. Family history of premature coronary artery disease 11. Postoperative acute blood loss anemia, expected Plan: 1. Continue aspirin, statin, Plavix, beta silvia. Will increase beta silvia therapy as tolerated. 2. Continue Norvasc for radial artery spasm. Do not discontinue without discussing with cardiothoracic surgery. 3. Encourage incentive spirometry 10 times every hour while awake. 4. Increase activity, ambulate as tolerated. PT/OT/cardiac rehab following. 5. Will monitor daily labs and x-rays. Electrolyte replacement per protocol. No transfusion at this time, will type and screen for possible transfusion tomorrow. Continue Iron/vitamin C. 6. Pain control with current medication regimen. 7. Insulin management per primary care service. 8. GI/DVT prophylaxis. 9. Bronchodilators per pulmonology. 10. Transfer orders placed for [address] [place] [address] cardiac stepdown unit yesterday. May transfer when bed available. 11. Discharge planning in progress. Anticipate discharge to home with home care soon. 12. More recommendations to follow based on patient's progress. Time with Patient: Greater than 30
[2018-08-13] MEDS: METOPROLOL TARTRATE 12.5 MG TAB PO SCH ×2 (09:55→20:40)
[2018-08-13] MEDS: MUPIROCIN 2% OINT 22 GM TUBE NASAL SCH ×2 (09:59→20:41)
--- NOTE | 2018-08-13 10:57 | PN ---
PROGRESS NOTE Mr. Bryan is in sinus rhythm. His hemoglobin is 6.8. He is doing well. He is status post bypass surgery and aortic valve replacement. Vital signs are stable. S1-S2 heard normally. Short systolic murmur noted. Lungs reveal bilateral decent air entry. Abdomen and lower extremity exam is unchanged. Plan is to continue current medical regimen, increase activity, incentive spirometry and pulmonary toilet. MMODL / IJN: [id number] /
[2018-08-13 11:51] LABS: Glucose,Whole Blood 114 mg/dL (75-99)
[2018-08-13] MEDS: amLODIPine 5 MG TAB PO SCH (12:12)
--- NOTE | 2018-08-13 16:17 | P.PN ---
Subjective Progress Note Date: 08/13/18 Principal diagnosis: medical management post CABG for aortic stenosis Patient was seen and examined. No acute events overnight. Able to ambulate the hallways and ICU twice without any difficulties. He denies any chest pain, shortness of breath or palpitations. Complains of some myalgias in the left upper extremity related to vein grafting. Has had a bowel movement and is u rinating freely since his surgery. Objective - Vital Signs Vital signs: Vital Signs Temp 98.1 F 08/13/18 12:00 Pulse 94 08/13/18 15:46 Resp 14 08/13/18 12:00 BP 101/62 08/13/18 12:00 Pulse Ox 96 08/13/18 12:00 Intake & Output 08/12/18 08/13/18 08/13/18 18:59 06:59 18:59 Intake Total 580 240 0 Output Total 730 1100 650 Balance -150 -860 -650 Weight 94.5 kg Intake: IV 100 0 Lactated Ringers 1,000 ml 100 0 @ 20 mls/hr IV .Q24H JOVANNY Rx#:[id number] Oral 480 240 Output: Drainage 80 L Pleural 40 MSx2 40 Urine 650 1100 650 Other: Voiding Method Urinal Urinal # Bowel Movements 1 ABP, PAP, CO, CI - Last Documented Arterial Blood Pressure 137/65 Pulmonary Artery Pressure 19/9 Cardiac Output 6.3 Cardiac Index 3.1 - Exam General: [non toxic], [no distress], [appears at stated age] Derm: [warm], [dry] Head: [atraumatic], [normocephalic], [symmetric] Eyes: [EOMI], [no lid lag], [anicteric sclera] Mouth: [no lip lesion], [mucus membranes moist] Cardiovascular: [S1S2 reg], [no murmur], [positive DP pulse bilateral], Lungs: [CTA bilateral], [no rhonchi, no rales] , [no accessory muscle use] Abdominal: [soft], [ nontender to palpation], [no guarding], [no appreciable organomegaly] Ext: [no gross muscle atrophy], [no edema], [no contractures] Neuro: [no focal neuro deficits] Psych: [Alert], [oriented], [appropriate affect] - Labs CBC & Chem 7: 08/13/18 05:30 08/13/18 05:30 Labs: Abnormal Lab Results - Last 24 Hours (Table) 08/12/18 08/12/18 08/13/18 Range/Units 17:35 20:57 05:30 RBC 2.22 L (4.30-5.90) m/uL Hgb 6.8 L* (13.0-17.5) gm/dL Hct 20.5 L (39.0-53.0) % Plt Count 127 L (150-450) k/uL Sodium (137-145) mmol/L POC Glucose (mg/dL) 142 H 122 H (75-99) mg/dL Calcium (8.4-10.2) mg/dL 08/13/18 08/13/18 08/13/18 Range/Units 05:30 06:53 11:48 RBC (4.30-5.90) m/uL Hgb (13.0-17.5) gm/dL Hct (39.0-53.0) % Plt Count (150-450) k/uL Sodium 135 L (137-145) mmol/L POC Glucose (mg/dL) 123 H 114 H (75-99) mg/dL Calcium 8.0 L (8.4-10.2) mg/dL Assessment and Plan Assessment: Assessment and Plan Aortic valve stenosis secondary to bicuspid valve, status post bioprosthetic AV replacement CAD status post double vessel arterial bypass Postoperative acute blood loss anemia Hypertension Hyperlipidemia History of paroxysmal atrial fibrillation Patient is postop day 2. Plans: Management as per cardiothoracic surgery. Pain management with Tylenol. Follow PT and OT recommendations. July 2018 cardiac catheterization shows 70% lesion of the LAD and 50-70% lesion of the left posterior circumflex. Patient is postop day 2. Plans: Continue aspirin, Plavix and Lipitor. Continue beta silvia. Management as per cardiothoracic surgery. Hemoglobin 7.7-6.8. Likely from acute blood loss. Plans: Daily CBC. No transfusion as per cardiothoracic surgery. BP 101/62. Plans: Continue metoprolol, amlodipine. Monitor vitals, adjust medications as necessary. Plans: Continue Lipitor. Plans: Continue metoprolol. Telemetry monitoring. K > 4 and Mg > 2.
[2018-08-13 17:07] LABS: Glucose,Whole Blood 114 mg/dL (75-99)
[2018-08-13] MEDS: SENNOSIDES-DOCUSATE SODIUM 1 EACH TAB PO SCH (20:40)
[2018-08-13] MEDS ORDERED: SODIUM CHLORIDE 0.65% NASAL SPRAY 44 ML BTL NASAL PRN (21:44)
[2018-08-13 21:50] LABS: Glucose,Whole Blood >600 mg/dL (75-99)
[2018-08-13 21:50] LABS: Glucose,Whole Blood 126 mg/dL (75-99)
[2018-08-13] MEDS: METOPROLOL TARTRATE 25 MG TAB PO SCH (22:33)
[2018-08-13] MEDS: HYDROcodone/APAP 5-325MG 1 EACH TAB PO PRN (22:54)
[2018-08-14 02:11] LABS: Glucose,Whole Blood 181 mg/dL (75-99)
[2018-08-14 06:07] LABS: Glucose,Whole Blood 108 mg/dL (75-99)
[2018-08-14] MEDS: PANTOPRAZOLE 40 MG TABLET PO SCH (06:09)
[2018-08-14] MEDS: ASCORBIC ACID 500 MG TAB PO SCH (06:09)
[2018-08-14] MEDS: FERROUS SULFATE 325 MG TAB PO SCH (06:09)
[2018-08-14 06:10] LABS: African American GFR (CKD) >90 (>60 ml/min/1.73 sqM); Anion Gap 5 mmol/L; Blood Urea Nitrogen 18 mg/dL (9-20); Calcium 7.9 mg/dL (8.4-10.2); Carbon Dioxide 28 mmol/L (22-30); Chloride 105 mmol/L (98-107); Glucose 98 mg/dL (74-99); Sodium 138 mmol/L (137-145)
[2018-08-14] MEDS: KETOROLAC 30 MG/ML 1 ML VIAL IVP SCH ×2 (06:10→12:07)
[2018-08-14 06:50] LABS: MCH 30.8 pg (25.0-35.0); MCHC 32.5 g/dL (31.0-37.0); MCV 94.8 fL (80.0-100.0); RBC 2.08 m/uL (4.30-5.90); RDW 14.1 % (11.5-15.5); WBC 7.4 k/uL (3.8-10.6)
[2018-08-14] MEDS: INSULIN ASPART (NovoLOG) 100 UNIT/ML VIAL SQ SCH ×2 (07:19→15:06)
[2018-08-14 07:36] LABS: HGB 6.4 gm/dL (13.0-17.5)
[2018-08-14 07:37] LABS: HCT 19.7 % (39.0-53.0); Platelet Count 192 k/uL (150-450)
[2018-08-14] MEDS ORDERED: FUROSEMIDE 10 MG/ML 2 ML VIAL IV ONE (08:06)
--- NOTE | 2018-08-14 08:14 | XR ---
EXAMINATION TYPE: XR chest 2V DATE OF EXAM: 08/14/2018 COMPARISON: 08/13/2018 TECHNIQUE: PA and lateral views submitted. HISTORY: Post cardiac surgery FINDINGS: Heart is enlarged and there is postsurgical changes. There is subsegmental consolidation and small le ft effusion. No interstitial edema. Biapical pleural thickening. Arthropathy of the shoulders. IMPRESSION: 1. Left basilar consolidation and small effusion is stable..
[2018-08-14] MEDS: IPRATROPIUM-ALBUTEROL 3 ML NEB INHALATION SCH ×2 (08:18→11:46)
[2018-08-14] MEDS: CLOPIDOGREL 75 MG TAB PO SCH (08:44)
[2018-08-14] MEDS: ASPIRIN 325 MG TAB PO SCH (08:44)
[2018-08-14] MEDS: ATORVASTATIN 40 MG TAB PO SCH (08:44)
[2018-08-14] MEDS: HEPARIN SODIUM,PORCINE 5,000 UNIT/ML 1 ML VIAL SQ SCH (08:44)
[2018-08-14] MEDS ORDERED: METOPROLOL TARTRATE 25 MG TAB PO SCH (09:00)
[2018-08-14 09:07] VITALS: RESP 18; TEMP 98.1
--- NOTE | 2018-08-14 11:44 | P.PN ---
Subjective Progress Note Date: 08/14/18 Principal diagnosis: Medical management post CABG Patient was seen and examined. No acute events overnight. Patient denies any chest pain, shortness of breath or palpitations. No dizziness. Able to ambulate the hallways without any difficulties. Objective - Vital Signs Vital signs: Vital Signs Temp 98.1 F 08/14/18 07:50 Pulse 92 08/14/18 08:24 Resp 18 08/14/18 07:50 BP 118/66 08/14/18 07:50 Pulse Ox 96 08/14/18 07:50 Intake & Output 08/13/18 08/14/18 08/14/18 18:59 06:59 18:59 Intake Total 0 480 Output Total 651 550 Balance -651 -70 Weight 90.1 kg Intake: IV 0 Lactated Ringers 1,000 ml 0 @ 20 mls/hr IV .Q24H JOVANNY Rx#:[id number] Oral 480 Output: Urine 650 550 Urine/Stool Mix 1 Other: Voiding Method Urinal Urinal # Voids 1 1 # Bowel Movements 1 ABP, PAP, CO, CI - Last Documented Arterial Blood Pressure 137/65 Pulmonary Artery Pressure 19/9 Cardiac Output 6.3 Cardiac Index 3.1 - Exam General: [non toxic], [no distress], [appears at stated age] Derm: [warm], [dry] Head: [atraumatic], [normocephalic], [symmetric] Eyes: [EOMI], [no lid lag], [anicteric sclera] Mouth: [no lip lesion], [mucus membranes moist] Cardiovascular: [S1S2 reg], [no murmur], [positive DP pulse bilateral], [sternal scar dressing clean dry and intact, heart hugger intact] Lungs: [CTA bilateral], [no rhonchi, no rales] , [no accessory muscle use] Abdominal: [soft], [ nontender to palpation], [no guarding], [no appreciable organomegaly] Ext: [no gross muscle atrophy], [no edema], [no contractures] Neuro: [no focal neuro deficits] Psych: [Alert], [oriented], [appropriate affect] - Labs CBC & Chem 7: 08/14/18 05:38 08/14/18 05:38 Labs: Abnormal Lab Results - Last 24 Hours (Table) 08/13/18 08/13/18 08/13/18 Range/Units 11:48 17:05 21:46 RBC (4.30-5.90) m/uL Hgb (13.0-17.5) gm/dL Hct (39.0-53.0) % POC Glucose (mg/dL) 114 H 114 H >600 H (75-99) mg/dL Calcium (8.4-10.2) mg/dL 08/13/18 08/14/18 08/14/18 Range/Units 21:48 02:10 05:38 RBC 2.08 L (4.30-5.90) m/uL Hgb 6.4 L* (13.0-17.5) gm/dL Hct 19.7 L* (39.0-53.0) % POC Glucose (mg/dL) 126 H 181 H (75-99) mg/dL Calcium (8.4-10.2) mg/dL 08/14/18 08/14/18 Range/Units 05:38 06:06 RBC (4.30-5.90) m/uL Hgb (13.0-17.5) gm/dL Hct (39.0-53.0) % POC Glucose (mg/dL) 108 H (75-99) mg/dL Calcium 7.9 L (8.4-10.2) mg/dL Assessment and Plan Assessment: Assessment and Plan Aortic valve stenosis secondary to bicuspid valve, status post bioprosthetic AV replacement CAD status post double vessel arterial bypass Postoperative acute blood loss anemia Hypertension Hyperlipidemia History of paroxysmal atrial fibrillation Patient is postop day 3. Plans: Management as per cardiothoracic surgery. Pain management with Tylenol. Follow PT and OT recommendations. July 2018 cardiac catheterization shows 70% lesion of the LAD and 50-70% lesion of the left posterior circumflex. Patient is postop day 2. Plans: Continue aspi rin, Plavix and Lipitor. Continue beta silvia. Management as per cardiothoracic surgery. Hemoglobin 7.7-6.8-6.4. Likely from acute blood loss. Plans: Daily CBC. No transfusion as per cardiothoracic surgery. BP 101/62. Plans: Continue metoprolol, amlodipine. Monitor vitals, adjust medications as necessary. Plans: Continue Lipitor. Plans: Continue metoprolol. Telemetry monitoring. K > 4 and Mg > 2. Plans for DC home today. Discussed with cardiothoracic surgery, no plans for blood transfusion. Will sign off at this time. Thank you for this consult, please call with any additional questions or concerns.
--- NOTE | 2018-08-14 11:50 | P.DS ---
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 Double vessel coronary artery disease 2. Severe aortic valve stenosis on a bicuspid valve 3. Preserved left ventricular function 4. History of recent non-STEMI 5. Recent diagnosis of paroxysmal atrial fibrillation 6. Syncopal episode in February 2018 7. Hypertension 8. Hyperlipidemia 9. Hypospadias with surgical repair as an infant 10. Family history of premature coronary artery disease 11. Postoperative acute blood loss anemia, expected PRINCIPAL PROCEDURE: 1. Double arterial coronary artery bypass grafting using the left internal mammary artery to the left anterior descending artery, left radial artery from the aorta to the second obtuse marginal artery 2. Aortic valve replacement using a 23 mm Inspiris pericardial bioprosthesis 3. Bilateral pulmonary vein isolation using the radiofrequency bipolar clamp from AtriCure for exclusion of the left atrial appendage using a 35 mm AtriClip 4. Left radial artery harvesting 5. Intraoperative transesophageal echocardiogram 6. Epi-aortic scanning 7. Intraoperative graft flow measurements using the [employer] system HISTORY OF PRESENT ILLNESS: This is a 58-year-old gentleman who does not follow with a primary care physician on a regular basis. He presented to [facility] emergency room back February 2018 with complaints of chest pressure, shortness of breath, and syncopal episode. He was ruled in for non-STEMI at that time and underwent heart catheterization which demonstrated mild nonobstructive coronary artery disease with 40% stenosis to a circumflex artery. A 2-D echocardiogram was completed demonstrating low to normal left ventricular systolic function with EF 50-55%, inferior basal hypokinesis, mild to moderate aortic regurgitation, and severe aortic stenosis with peak/mean gradient across the aortic valve 102.89 mmHg/60.39 mmHg. Transesophageal echocardiogram was also completed confirming severe aortic stenosis with a valve area 0.87 m by planimetry. Consultation was placed to Dr. Real from cardiothoracic surgery f or recommendations regarding aortic valve replacement. The patient had all preoperative testing completed, and he was discharged home with follow-up appointment in Dr. Real's office to select a surgical date. The patient canceled his appointment due to financial constraints and lack of insurance. He had been supplementing with herbal therapy and had lost 20-25 pounds over the next several months. In July he began experiencing shortness of breath after unloading a truck. He went into the house and began to experience chest pain without radiation or any other aggravating symptoms. He sat down, a banana and take a magnesium supplement as well as 4 baby aspirin and his chest pain was nearly relieved, however he did present to [facility] emergency room for further evaluation. He was found to be in atrial fibrillation with rapid ventricular response and was seen in the emergency room by Dr. Dr. Parra. He did convert to normal sinus rhythm without intervention, and follow-up EKG did demonstrate sinus rhythm with T-wave inversions in the inferior lateral leads, similar to his EKGs in February. Troponins were again mildly elevated. He was admitted for evaluation and treatment and placed on IV heparin. Repeat transthoracic echocardiogram was completed demonstrating normal LV systolic function with EF 55-60%, moderate aortic regurgitation, and severe aortic steno sis with peak/mean gradient across the aortic valve 108.49 mmHg/72.64 mmHg. Consultation was again placed for Dr. Real from cardiothoracic surgery . He was again recommended to undergo aortic valve replacement. In addition the patient had a repeat heart catheterization with intravascular ultrasound indicating 70% lesion in the ostium of the LAD and 65-70% lesion in the mid circumflex coronary artery. Therefore surgical recommendation included coronary artery bypass grafting. The usual perioperative course was discussed in detail with the patient and his family, all risks and benefits were explained, all questions were answered, and consent was obtained to proceed with surgery. The patient was discharged to home on maximal medical therapy to return as an outpatient for surgery after obtaining dental clearance. HOSPITAL COURSE: The patient was brought to the hospital on 08/10/2018, taken to the preoperative area, prepared in the usual fashion, and subsequently taken to the operating room where Dr. Real performed double arterial coronary artery bypass grafting using the left internal mammary artery to the left anterior descending artery, left radial artery from the aorta to the second obtuse marginal artery, aortic valve replacement using a 23 mm Inspiris pericardial bioprosthesis, bilateral pulmonary vein isolation using the radiofrequency bipolar clamp from AtriCure for exclusion of the left atrial appendage using a 35 mm AtriClip, left radial artery harvesting, intraoperative transesophageal echocardiogram, epi-aortic scanning, and intraoperative graft flow measurements using the [employer] system. Upon completion of surgery the patient was transferred to the cardiovascular intensive care unit where he was recovered, monitored hemodynamically, and where he progressed to cardiac rehabilitation phase 1. He was extubated, all lines, tubes, and drips were discontinued when appropriate, and he was transferred to 3 S. cardiac stepdown unit for further monitoring and rehabilitation. He did experience acute blood loss anemia which is an expected outcome of cardiac surgery, however he was completely asymptomatic and required no blood transfusions. His oxygen was titrated down, he continued to work with physical and occupational therapy, he was tolerating oral diet, his pain was controlled, and he was ready to be discharged to home with [facility] on postoperative day #4. He received written and verbal instruction regarding his medications, activity restrictions, signs and symptoms requiring physician notification, and follow-up appointments. COMPLICATIONS: The patient experienced no postoperative complications. Patient Condition at Discharge: Stable Plan - Discharge Summary Discharge Rx Participant: Yes New Discharge Prescriptions: New Aspirin 325 mg PO DAILY #30 tab Ferrous Sulfate [Iron (65 MG Elemental)] 325 mg PO BID-W/MEALS #60 tab Metoprolol Tartrate [Lopressor] 25 mg PO BID #60 tab HYDROcodone/APAP 5-325MG [Polaris 5-325] 1 each PO Q6HR PRN #20 tab PRN Reason: Moderate Pain amLODIPine [Norvasc] 5 mg PO DAILY@1200 #30 tab Clopidogrel [Plavix] 75 mg PO DAILY #30 tab Pantoprazole [Protonix] 40 mg PO AC-BRKFST #30 tablet.dr Morales-Docusate Sodium [Senokot-S] 2 each PO HS PRN #14 tab PRN Reason: Constipation Acetaminophen Tab [Tylenol] 1,000 mg PO Q6HR PRN #120 tab PRN Reason: Fever And/ Or Pain Ascorbic Acid [Vitamin C] 500 mg PO BID-W/MEALS #60 tab Continue Atorvastatin [Lipitor] 40 mg PO HS #30 tab Discontinued Aspirin 81 mg PO DAILY #30 chew Metoprolol Tartrate [Lopressor] 25 mg PO DAILY #30 tab Ubidecarenone [Co Q-10] 100 mg PO HS Discharge Medication List Acetaminophen Tab [Tylenol] 1,000 mg PO Q6HR PRN #120 tab 08/14/18 [Rx] Ascorbic Acid [Vitamin C] 500 mg PO BID-W/MEALS #60 tab 08/14/18 [Rx] Aspirin 325 mg PO DAILY #30 tab 08/14/18 [Rx] Atorvastatin [Lipitor] 40 mg PO HS #30 tab 08/14/18 [Rx] Clopidogrel [Plavix] 75 mg PO DAILY #30 tab 08/14/18 [Rx] Ferrous Sulfate [Iron (65 MG Elemental)] 325 mg PO BID-W/MEALS #60 tab 08/14/18 [Rx] HYDROcodone/APAP 5-325MG [Polaris 5-325] 1 each PO Q6HR PRN #20 tab 08/14/18 [Rx] Metoprolol Tartrate [Lopressor] 25 mg PO BID #60 tab 08/14/18 [Rx] Pantoprazole [Protonix] 40 mg PO AC-BRKFST #30 tablet. 08/14/18 [Rx] Sennosides-Docusate Sodium [Senokot-S] 2 each PO HS PRN #14 tab 08/14/18 [Rx] amLODIPine [Norvasc] 5 mg PO DAILY@1200 #30 tab 08/14/18 [Rx] Follow up Appointment(s)/Referral(s): Pamela Hinojosa NPC [Nurse Practitioner] - 08/21/18 10:30 am Fly Real MD [STAFF PHYSICIAN] - 08/31/18 11:00 am Bon Medina DO [Doctor of Osteopathic Medicine] - 09/06/18 1:45 pm [facility], [NON-STAFF] - 1-2 Days Kat Gutiérrez NPC [Nurse Practitioner] - 09/06/18 12:30 pm (Please bring photo ID and list of medications) Lukas Parnell MD [STAFF PHYSICIAN] - 08/27/18 10:00 am Ambulatory/Diagnostic Orders: Complete Blood Count w/diff [LAB.AMB] Time Frame: 3 Days, Location: None Selected Comprehensive Metabolic Panel [LAB.AMB] Time Frame: 3 Days, Location: None Selected Activity/Diet/Wound Care/Special Instructions: DISCHARGE INSTRUCTIONS: 1. No driving for 4 weeks, or until physician gives their ok. 2. The patient should sleep in their own bed, no medical bed needed. 3. Stairs are not an issue. If the bedroom is upstairs, it is advised that the patient go up at night and down in the morning for the first week. Go slowly, using handrail and take 1 step at a time. 4. RUTHANN hose are to be worn for 30 days or until physician discontinues. 5. Heart hugger is to be worn 100% of the time until physician discontinues.(except when showering) 6. No lifting, pushing, or pulling more than 10 pounds for 12 weeks. The physician will advise of any restriction changes. 7. The patient is expected to continue the prescribed walking program. 8. Continue pain control per as needed orders. 9. Continue with incentive spirometry and splinting/heart hugger until otherwise directed by the physician. 10. Must shower daily using liquid antibacterial soap and a separate white washcloth for each individual incision. 11. Routine sternal incision care. No powders, lotions, ointments on incisions. 12. Please call surgeon/CARDIAC CATH LAB MANAGER for temp greater than 101 F or purulent drainage from incisions. 13. Narcotic medications were discussed with the patient, including the potential for misuse, addiction, and abuse. Opiod Start Talking form was reviewed with the patient. 14. All prescriptions given by surgeon for 30 days. Refills need to be filled through corn shredder/primary care physician. 15. A Red armband has been placed on the patient. It should be worn for 30 days post surgery and will be removed by the cardiac surgeons. If an ER visit is necessary, please make sure the number on the Red armband is called. HOME HEALTH SERVICES TO PROVIDE: RN SKILLED HOME CARE SERVICES FOR POST-OP SURGICAL PATIENTS WITH THE FOLLOWING: Coronary Artery Bypass Surgery (CABG), Mitral Valve Replacement/Repair ( MVR), Aortic Valve Replacement/Repair (AVR) RN TO CONTINUE EDUCATION FROM ``ROAD TO A HEALTH HEART PATIENT EDUCATION MANUAL (GIVEN TO PATIENT IN THE HOSPITAL) MEDICATION RECONCILIATION WITH EDUCATION NEEDED ON FIRST HOME VISIT EMPHASIZE IMPORTANCE OF WEARING BREAST SUPPORT/HEART HUGGER ENCOURAGE USE OF INCENTIVE SPIROMETER 10 X EVERY HOUR WHILE AWAKE ENCOURAGE UTILIZATION OF LOWER EXTREMITY COMPRESSION STOCKINGS/RUTHANN HOSE and ELEVATE LEGS ABOVE LEVEL OF HEART WHILE AT REST. ENCOURAGE AMBULATION 3-5x/day INCREASING TOLERATES, WHILE AVOID EXTREMES IN TEMPERATURE FREQUENCY: RN TO OPEN THE PATIENT WITHIN 24 HOURS OF DISCHARGE FROM THE HOSPITAL WITH TELEHEALTH INSTALLED AT [facility] [place], RN TO VISIT 2-3 X A WEEK FOR 4 WEEKS ESTABLISHED BY PATIENT NEEDS. LABORATORY: CBC, CMP TO BE DRAWN ON THE THIRD DAY HOME, (RAN STAT) FAX RESULTS TO [phone]. TELEHEALTH PARAMETERS: WEIGHT: NOTIFY MD OF WEIGHT GAIN OF 2 LBS IN 24 HOURS OR 5 LBS IN ONE WEEK HR: NOTIFY MD OF HR <55 BPM OR HR>100 BPM BP: NOTIFY MD IF BP <90/55 OR BP>140/100 O2 SAT: NOTIFY MD IF PO2<93% ON ROOM AIR SEND TELEHEALTH REPORT TO SAND SHOVELER AND CARDIOVASCULAR SURGEON THE FIRST WEEK OF CARE AND THEN BI-WEEKLY. PLEASE ADDITIONALLY COMMUNICATE ANY ABNORMALS AND NEW FINDINGS TO THE SURGEONS OFFICE. Discharge Disposition: HOME WITH HOME HEALTH SERVICES
[2018-08-14] MEDS: amLODIPine 5 MG TAB PO SCH (12:08)
[2018-08-14 12:20] LABS: Glucose,Whole Blood 101 mg/dL (75-99)
[2018-08-14 14:43] VITALS: BP 103/55; PULSE 86
--- NOTE | 2018-08-14 15:23 | P.PN ---
Subjective Progress Note Date: 08/13/18 Principal diagnosis: Aortic stenosis, coronary artery disease This is a very pleasant 58-year-old gentleman who presented back in February with symptoms of congestive heart failure was found to have significant aortic stenosis and was advised aortic valve replacement. He had not followed up after that and came back with us non-ST segment elevation myocardial infarction. Cardiac catheterization revealed evidence of coronary artery disease and was recommended bypass grafting to the LAD and circumflex along with the cuspid aortic valve and aortic valve replacement. He was brought in yesterday for an elective procedure. He received a HAWTHORNE to the LAD, left radial artery to the second obtuse marginal branch. He also received aortic valve replacement utilizing a 23 pericardial bioprosthesis Inspiris. He was returned to the intensive care unit intubated on mechanical ventilator. He uses successfully extubated within the 6 hour time frame. He is seen today in consultation in the ICU. He is awake and alert sitting up in a chair at the bedside. He is on 3 L nasal cannula to maintain O2 saturation in the 90s. Chest x-ray shows minimal left basilar airspace disease otherwise clear. He is working well with the incentive spirometer. Hemodynamically stable. White count 9.7. Hemoglobin 9.5. Platelet count 132,000. Creatinine 0.90. On 08/13/2018 patient seen in follow-up in the intensive care unit, is awake and alert, in no acute distress, vital signs are stable, room air pulse ox is 96%, hemodynamically stable, afebrile. His chest tubes have been discontinued, Cheek catheter has been discontinued, patient has been ambulating, no acute complaints, today's chest x-ray shows improving left basilar airspace disease and a trace pleural effusions, left greater than the right, today's labs have been reviewed, showing white blood cell count of 8.6, hemoglobin of 6.8, platelet count of 127, serum sodium was 135, potassium is 4.6, chloride is 102, CO2 is 28, BUN is 17, creatinine is 0.80. Lung sounds are positive for some diminished breath sounds at bilateral bases, patient has been working with his incentive spirometry. He is awaiting a bed on the stepdown floor. Remains in sinus mechanism with a controlled rate. Objective - Vital Signs Vital signs: Vital Signs Temp 98.1 F 08/14/18 12:05 Pulse 86 08/14/18 12:05 Resp 18 08/14/18 12:05 BP 103/55 08/14/18 12:05 Pulse Ox 98 08/14/18 12:05 Intake & Output 08/13/18 08/14/18 08/14/18 18:59 06:59 18:59 Intake Total 0 480 480 Output Total 651 550 Balance -651 -70 480 Weight 90.1 kg Intake: IV 0 Lactated Ringers 1,000 ml 0 @ 20 mls/hr IV .Q24H JOVANNY Rx#:[id number] Oral 480 480 Output: Urine 650 550 Urine/Stool Mix 1 Other: Voiding Method Urinal Urinal # Voids 1 1 # Bowel Movements 1 ABP, PAP, CO, CI - Last Documented Arterial Blood Pressure 137/65 Pulmonary Artery Pressure 19/9 Cardiac Output 6.3 Cardiac Index 3.1 - Exam GENERAL EXAM: Alert, pleasant, 58-year-old white male on room air comfortable in no apparent distress. HEAD: Normocephalic/atraumatic. EYES: Normal reaction of pupils, equal size. Conjunctiva pink, sclera white. NOSE: Clear with pink turbinates. THROAT: No erythema or exudates. NECK: No masses, no JVD, no thyroid enlargement, no adenopathy. CHEST: No chest wall deformity. Symmetrical expansion. Medial sternotomy incis ions clean dry and intact, chest tube sites clean dry and intact, covered with surgical dressings LUNGS: Equal air entry with no crackles, wheeze, rhonchi or dullness. CVS: Regular rate and rhythm, normal S1 and S2, no gallops, no murmurs, no rubs ABDOMEN: Soft, nontender. No hepatosplenomegaly, normal bowel sounds, no guarding or rigidity. EXTREMITIES: No clubbing, no edema, no cyanosis, 2+ pulses and upper and lower extremities. MUSCULOSKELETAL: Muscle strength and tone normal. SPINE: No scoliosis or deformity SKIN: No rashes CENTRAL NERVOUS SYSTEM: Alert and oriented -3. No focal deficits, tone is normal in all 4 extremities. PSYCHIATRIC: Alert and oriented -3. Appropriate affect. Intact judgment and insight. - Labs CBC & Chem 7: 08/14/18 05:38 08/14/18 05:38 Labs: Abnormal Lab Results - Last 24 Hours (Table) 08/13/18 08/13/18 08/13/18 Range/Units 17:05 21:46 21:48 RBC (4.30-5.90) m/uL Hgb (13.0-17.5) gm/dL Hct (39.0-53.0) % POC Glucose (mg/dL) 114 H >600 H 126 H (75-99) mg/dL Calcium (8.4-10.2) mg/dL 08/14/18 08/14/18 08/14/18 Range/Units 02:10 05:38 05:38 RBC 2.08 L (4.30-5.90) m/uL Hgb 6.4 L* (13.0-17.5) gm/dL Hct 19.7 L* (39.0-53.0) % POC Glucose (mg/dL) 181 H (75-99) mg/dL Calcium 7.9 L (8.4-10.2) mg/dL 08/14/18 08/14/18 Range/Units 06:06 12:14 RBC (4.30-5.90) m/uL Hgb (13.0-17.5) gm/dL Hct (39.0-53.0) % POC Glucose (mg/dL) 108 H 101 H (75-99) mg/dL Calcium (8.4-10.2) mg/dL Assessment and Plan Plan: Assessment: #1 Recent non-ST segment elevation myocardial infarction with coronary artery disease requiring coronary artery bypass grafting utilizing a HAWTHORNE to the LAD, left radial artery to the second obtuse marginal artery, postoperative day #3 #2 Severe aortic stenosis with bicuspid aortic valve, status post aortic valve replacement utilizing a 23 mm pericardial bioprosthesis valve. Postoperative day #1. #3 Hypospadias requiring Cheek catheter placement by urology. #4 Hypertension, history of. #5 Hyperlipidemia. #6 Osteoarthritis. Plan: Continue with nebulized bronchodilators, continue urging deep breathing and coughing, this chest x-ray has been reviewed, showing small bilateral pleural effusions, and adjacent atelectasis, signs are stable, patient is maintaining good oxygenation on room air, tolerating ambulation. Deferred to CT surgery for the decision on transfusion for hemoglobin of 6.8, clinically patient is asymptomatic, awaiting a bed on selective care unit, will continue to follow I performed a history & physical examination of the patient and discussed their management with my nurse practitioner, Gris Schroeder. I reviewed the nurse practitioner's note and agree with the documented findings and plan of care. Lung sounds are positive for diminished breath sounds. The findings and the impression was discussed with the patient. I attest to the documentation by the nurse practitioner. Time with Patient: Less than 30
--- NOTE | 2018-08-14 15:27 | P.PN ---
Subjective Progress Note Date: 08/14/18 Principal diagnosis: Aortic stenosis, coronary artery disease This is a very pleasant 58-year-old gentleman who presented back in February with symptoms of congestive heart failure was found to have significant aortic stenosis and was advised aortic valve replacement. He had not followed up after that and came back with us non-ST segment elevation myocardial infarction. Cardiac catheterization revealed evidence of coronary artery disease and was recommended bypass grafting to the LAD and circumflex along with the cuspid aortic valve and aortic valve replacement. He was brought in yesterday for an elective procedure. He received a HAWTHORNE to the LAD, left radial artery to the second obtuse marginal branch. He also received aortic valve replacement utilizing a 23 pericardial bioprosthesis Inspiris. He was returned to the intensive care unit intubated on mechanical ventilator. He uses successfully extubated within the 6 hour time frame. He is seen today in consultation in the ICU. He is awake and alert sitting up in a chair at the bedside. He is on 3 L nasal cannula to maintain O2 saturation in the 90s. Chest x-ray shows minimal left basilar airspace disease otherwise clear. He is working well with the incentive spirometer. Hemodynamically stable. White count 9.7. Hemoglobin 9.5. Platelet count 132,000. Creatinine 0.90. On 08/13/2018 patient seen in follow-up in the intensive care unit, is awake and alert, in no acute distress, vital signs are stable, room air pulse ox is 96%, hemodynamically stable, afebrile. His chest tubes have been discontinued, Cheek catheter has been discontinued, patient has been ambulating, no acute complaints, today's chest x-ray shows improving left basilar airspace disease and a trace pleural effusions, left greater than the right, today's labs have been reviewed, showing white blood cell count of 8.6, hemoglobin of 6.8, platelet count of 127, serum sodium was 135, potassium is 4.6, chloride is 102, CO2 is 28, BUN is 17, creatinine is 0.80. Lung sounds are positive for some diminished breath sounds at bilateral bases, patient has been working with his incentive spirometry. He is awaiting a bed on the stepdown floor. Remains in sinus mechanism with a controlled rate. On 08/14/2018 patient seen in follow-up on selective care unit, doing well, no acute complaints, today's chest x-ray has been reviewed showing left basilar consolidation, and small pleural effusion. No acute events overnight, patient is tolerating ambulation, maintaining stable oxygenation on room air, pulse ox is 98% on room air, today's labs have been reviewed, showing white blood cell count of 7.4, hemoglobin of 6.4, patient is clinically asymptomatic, CT surgery elected not to transfuse, electrolytes and renal profile are within normal limits. Patient is going home today. Incisions clean dry and intact, lung sounds are clear, diminished at the bases. She is working on her incentive spirometer. Objective - Vital Signs Vital signs: Vital Signs Temp 98.1 F 08/14/18 12:05 Pulse 86 08/14/18 12:05 Resp 18 08/14/18 12:05 BP 103/55 08/14/18 12:05 Pulse Ox 98 08/14/18 12:05 Intake & Output 08/13/18 08/14/18 08/14/18 18:59 06:59 18:59 Intake Total 0 480 480 Output Total 651 550 Balance -651 -70 480 Weight 90.1 kg Intake: IV 0 Lactated Ringers 1,000 ml 0 @ 20 mls/hr IV .Q24H [facility] Rx#:[id number] Oral 480 480 Output: Urine 650 550 Urine/Stool Mix 1 Other: Voiding Method Urinal Urinal # Voids 1 1 # Bowel Movements 1 ABP, PAP, CO, CI - Last Documented Arterial Blood Pressure 137/65 Pulmonary Artery Pressure 19/9 Cardiac Output 6.3 Cardiac Index 3.1 - Exam GENERAL EXAM: Alert, pleasant, 58-year-old white male on room air comfortable in no apparent distress. HEAD: Normocephalic/atraumatic. EYES: Normal reaction of pupils, equal size. Conjunctiva pink, sclera white. NOSE: Clear with pink turbinates. THROAT: No erythema or exudates. NECK: No masses, no JVD, no thyroid enlargement, no adenopathy. CHEST: No chest wall deformity. Symmetrical expansion. Medial sternotomy incisions clean dry and intact, chest tube sites clean dry and intact, covered with surgical dressings LUNGS: Equal air entry with no crackles, wheeze, rhonchi or dullness. CVS: Regular rate and rhythm, normal S1 and S2, no gallops, no murmurs, no rubs ABDOMEN: Soft, nontender. No hepatosplenomegaly, normal bowel sounds, no guarding or rigidity. EXTREMITIES: No clubbing, no edema, no cyanosis, 2+ pulses and upper and lower extremities. MUSCULOSKELETAL: Muscle strength and tone normal. SPINE: No scoliosis or deformity SKIN: No rashes CENTRAL NERVOUS SYSTEM: Alert and oriented -3. No focal deficits, tone is normal in all 4 extremities. PSYCHIATRIC: Alert and oriented -3. Appropriate affect. Intact judgment and insight. - Labs CBC & Chem 7: 08/14/18 05:38 08/14/18 05:38 Labs: Abnormal Lab Results - Last 24 Hours (Table) 08/13/18 08/13/18 08/13/18 Range/Units 17:05 21:46 21:48 RBC (4.30-5.90) m/uL Hgb (13.0-17.5) gm/dL Hct (39.0-53.0) % POC Glucose (mg/dL) 114 H >600 H 126 H (75-99) mg/dL Calcium (8.4-10.2) mg/dL 08/14/18 08/14/18 08/14/18 Range/Units 02:10 05:38 05:38 RBC 2.08 L (4.30-5.90) m/uL Hgb 6.4 L* (13.0-17.5) gm/dL Hct 19.7 L* (39.0-53.0) % POC Glucose (mg/dL) 181 H (75-99) mg/dL Calcium 7.9 L (8.4-10.2) mg/dL 08/14/18 08/14/18 Range/Units 06:06 12:14 RBC (4.30-5.90) m/uL Hgb (13.0-17.5) gm/dL Hct (39.0-53.0) % POC Glucose (mg/dL) 108 H 101 H (75-99) mg/dL Calcium (8.4-10.2) mg/dL Assessment and Plan Plan: Assessment: #1 Recent non-ST segment elevation myocardial infarction with coronary artery disease requiring coronary artery bypass grafting utilizing a HAWTHORNE to the LAD, left radial artery to the second obtuse marginal artery, postoperative day #4 #2 Severe aortic stenosis with bicuspid aortic valve, status post aortic valve replacement utilizing a 23 mm pericardial bioprosthesis valve. Postoperative day #1. #3 Hypospadias requiring Cheek catheter placement by urology. #4 Hypertension, history of. #5 Hyperlipidemia. #6 Osteoarthritis. Plan: Patient is doing well, today's chest x-ray has been reviewed, showing small left basilar atelectasis, and small pleural effusions, clinically stable, no acute events overnight, stable for discharge home today. Follow-up with Dr. Dr. Medina in the office in 10 days. I performed a history & physical examination of the patient and discussed their management with my nurse practitioner, Gris Schroeder. I reviewed the nurse practitioner's note and agree with the documented findings and plan of care. Lung sounds are positive for diminished breath sounds. The findings and the impression was discussed with the patient. I attest to the documentation by the nurse practitioner. Time with Patient: Less than 30
--- NOTE | 2018-08-14 16:57 | PN ---
PROGRESS NOTE DATE OF SERVICE: Mr. Bryan is in sinus rhythm status post bypass surgery with 2 arterial grafts, doing well. Vitals are stable. S1, S2 heard normally. Hemoglobin is low, but he will be discharged on iron tablets. Lungs are clear. Abdomen and lower extremity exam unchanged. He will see Dr. Parnell in 2 weeks. MMODL / IJN: [id number] /
--- NOTE | 2018-08-16 05:01 | CDI ---
Documentation Clarification Form Date: 08/16/18 From: Bro Lacey Phone: call to [phone] Admit Date: 08/10/2018 5:30:00 AM Patient Name: Volodymyr Bryan V Visit Number: [id number] Discharge Date: 08/14/2018 1:46:00 PM ATTENTION: The Clinical Documentation Specialists (CDI) and [facility] Coding Staff appreciate your assistance in clarifying documentation. Please respond to the clarification below the line at the bottom and electronically sign. The CDI & [facility] Coding staff will review the response and follow-up if needed. Please note: Queries are made part of the Legal Health Record. If you have any questions, please contact the author of this message via ITS. Dr. Fly Real, Myocardial infarction is documented in the Pre-OP and Post-OP diagnosis in OP report as NSTEMI. Patient History: He presented to [facility] emergency room back February 2018 with complaints of chest pressure, shortness of breath, and syncopal episode.He was ruled in for non-STEMI at that time Current admission "Troponins was mildy elevated,He was admitted for evaluation and treatment and placed on IV heparin." Treatment: IV Heparin In order to capture the severity of condition and necessary documentation specificity, please clarify: NSTEMI Ruled in NSTEMI Rled out Unable to determine Other Condition, please specify Age of infarction if known Acute NC (within the last 4 weeks) Subsequent NC (another NC within 4 weeks) New Acute NC - (another NC after 4 weeks) Old NC (NC more than 4 weeks old) Specific date if known: Unable to determine This query should be directed to the leaf binner that initially admitted the patient. However, all other documentation including the elvated troponins are pointing to an acute NSTEMI MTDD
== END 2018-08-14 13:46 | disposition home health service (06) | DRG 220 ==
LOC: 2ORMAIN 05:30 → 2SICU 16:04 → 3SCARD 08-13 21:07
PROVIDERS: ADMIT Surgery; ATTEND Surgery
PROC: B24BZZ4 Ultrasonography of Heart with Aorta, Transesophageal (ICD-10-PCS; principal; 2018-08-10 08:00)
PROC: 5A1221Z Performance of Cardiac Output, Continuous (ICD-10-PCS; principal; 2018-08-10 08:00)
PROC: 02100Z9 Bypass Coronary Artery, One Artery from Left Internal Mammary, Open Approach (ICD-10-PCS; principal; 2018-08-10 08:00)
PROC: 02583ZZ Destruction of Conduction Mechanism, Percutaneous Approach (ICD-10-PCS; principal; 2018-08-10 08:00)
PROC: 02L70CK Occlusion of Left Atrial Appendage with Extraluminal Device, Open Approach (ICD-10-PCS; principal; 2018-08-10 08:00)
PROC: 02100AW Bypass Coronary Artery, One Artery from Aorta with Autologous Arterial Tissue, Open Approach (ICD-10-PCS; principal; 2018-08-10 08:00)
PROC: 02RF08Z Replacement of Aortic Valve with Zooplastic Tissue, Open Approach (ICD-10-PCS; principal; 2018-08-10 08:00)
PROC: 0T7D7ZZ Dilation of Urethra, Via Natural or Artificial Opening (ICD-10-PCS; 2018-08-10 08:00)
DX: I21.4 Non-ST elevation (NSTEMI) myocardial infarction (principal); Q23.1 Congenital insufficiency of aortic valve; D62 Acute posthemorrhagic anemia; I25.10 Atherosclerotic heart disease of native coronary artery without angina pectoris; I35.0 Nonrheumatic aortic (valve) stenosis; I48.0 Paroxysmal atrial fibrillation; M19.90 Unspecified osteoarthritis, unspecified site; N35.911 Unspecified urethral stricture, male, meatal; I10 Essential (primary) hypertension; I34.0 Nonrheumatic mitral (valve) insufficiency; E78.5 Hyperlipidemia, unspecified; Q54.9 Hypospadias, unspecified; Z79.82 Long term (current) use of aspirin; Z79.899 Other long term (current) drug therapy; Z82.3 Family history of stroke; Z82.49 Family history of ischemic heart disease and other diseases of the circulatory system; Z87.891 Personal history of nicotine dependence; Z95.1 Presence of aortocoronary bypass graft; Z95.3 Presence of xenogenic heart valve; I25.2 Old myocardial infarction; Z91.011 Allergy to milk products
CPT/HCPCS: 71045; 71046; 80048; 80053; 82330; 82805; 83735; 84100; 85025; 85027; 85384; 85520; 85610; 85730; 86850; 86891; 86900; 86901; 86920; 88305; 88311; 94002; 94640

== ENCOUNTER 2018-09-27 18:29 | Emergency (ER) | payer OTHER ==
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
[2018-09-27 19:23] VITALS: RESP 18
[2018-09-27 19:40] LABS: Basophils % (A) 1 %; Eosinophils # (A) 0.2 k/uL (0-0.7); Eosinophils % (A) 3 %; HCT 39.6 % (39.0-53.0); Lymphocytes # (A) 1.6 k/uL (1.0-4.8); Lymphocytes % (A) 26 %; MCH 29.1 pg (25.0-35.0); MCHC 31.9 g/dL (31.0-37.0); MCV 91.2 fL (80.0-100.0); Mean Platelet Volume 6.7; Monocytes # (A) 0.4 k/uL (0-1.0); Monocytes % (A) 6 %; Neutrophils # (A) 3.9 k/uL (1.3-7.7); Neutrophils % (A) 63 %; Platelet Count 300 k/uL (150-450); RBC 4.34 m/uL (4.30-5.90); RDW 13.3 % (11.5-15.5); WBC 6.2 k/uL (3.8-10.6)
[2018-09-27 19:47] LABS: HGB 12.7 gm/dL (13.0-17.5)
[2018-09-27 19:49] LABS: INR 0.9 (<1.2); Partial Thromboplastin Time 24.3 sec (22.0-30.0); Prothrombin Time 9.8 sec (9.0-12.0)
[2018-09-27 19:52] LABS: ALT 13 U/L (21-72); AST 22 U/L (17-59); African American GFR (CKD) >90 (>60 ml/min/1.73 sqM); Albumin 4.5 g/dL (3.5-5.0); Alkaline Phosphatase 92 U/L (38-126); Anion Gap 12 mmol/L; Blood Urea Nitrogen 21 mg/dL (9-20); Carbon Dioxide 25 mmol/L (22-30); Chloride 104 mmol/L (98-107); Glucose 102 mg/dL (74-99); Potassium 4.3 mmol/L (3.5-5.1); Sodium 141 mmol/L (137-145); Total Bilirubin 0.2 mg/dL (0.2-1.3)
--- NOTE | 2018-09-27 19:53 | XR ---
EXAMINATION TYPE: XR chest 1V portable DATE OF EXAM: 09/27/2018 COMPARISON: 08/14/2018 HISTORY: Palpitations TECHNIQUE: Single frontal view of the chest is obtained. FINDINGS: There is no heart failure nor confluent pneumonic infiltrate. Costophrenic angles are ren r. There are chest leads. There are sternal wires. IMPRESSION: No active cardiopulmonary disease. No change.
[2018-09-27 20:09] LABS: T4, Free (Free Thyroxine) 1.01 ng/dL (0.78-2.19)
[2018-09-27 21:05] VITALS: BP 140/86; PULSE 67; TEMP 98
== END 2018-09-27 21:05 | disposition home or self-care (01) ==
LOC: EC 18:29
DX: R00.2 Palpitations (principal); R01.1 Cardiac murmur, unspecified; I10 Essential (primary) hypertension; Z87.891 Personal history of nicotine dependence; Z91.011 Allergy to milk products; Z79.899 Other long term (current) drug therapy; Z95.1 Presence of aortocoronary bypass graft; Z82.49 Family history of ischemic heart disease and other diseases of the circulatory system
CPT/HCPCS: 36415; 71045; 80053; 83735; 84439; 84443; 84481; 85025; 85610; 85730; 93005; 99285

== ENCOUNTER 2020-12-30 17:45 | Inpatient (IN) | payer OTHER ==
[2020-12-30] MEDS ORDERED: ACETAMINOPHEN TAB 500 MG TAB PO STA (17:53)
[2020-12-30] MEDS ORDERED: DEXAMETHASONE SOD PHOSPHATE 10 MG/ML 1 ML VIAL IVP STA (17:53)
[2020-12-30] MEDS ORDERED: IBUPROFEN 600 MG TAB PO STA (17:53)
[2020-12-30] MEDS ORDERED: SODIUM CHLORIDE 0.9% 1,000 ML IV ONE ×2 (17:54→19:13)
[2020-12-30] MEDS ORDERED: ALBUTEROL HFA INHALER INHALATION STA (17:54)
[2020-12-30 18:19] LABS: Basophils % (A) 0 %; Eosinophils % (A) 0 %; HCT 40.9 % (39.0-53.0); HGB 14.5 gm/dL (13.0-17.5); Lymphocytes # (A) 0.5 k/uL (1.0-4.8); Lymphocytes % (A) 8 %; MCH 31.4 pg (25.0-35.0); MCHC 35.5 g/dL (31.0-37.0); MCV 88.4 fL (80.0-100.0); Mean Platelet Volume 7.9; Monocytes # (A) 0.3 k/uL (0-1.0); Monocytes % (A) 5 %; Neutrophils # (A) 5.6 k/uL (1.3-7.7); Neutrophils % (A) 85 %; Platelet Count 253 k/uL (150-450); RBC 4.63 m/uL (4.30-5.90); RDW 11.6 % (11.5-15.5); WBC 6.5 k/uL (3.8-10.6)
[2020-12-30 18:24] LABS: ALT 19 U/L (4-49); AST 55 U/L (17-59); African American GFR (CKD) >90 (>60 ml/min/1.73 sqM); Albumin 3.4 g/dL (3.5-5.0); Alkaline Phosphatase 50 U/L (38-126); Anion Gap 10 mmol/L; Blood Urea Nitrogen 11 mg/dL (9-20); Calcium 8.2 mg/dL (8.4-10.2); Carbon Dioxide 23 mmol/L (22-30); Chloride 88 mmol/L (98-107); Glucose 125 mg/dL (74-99); Magnesium 2.2 mg/dL (1.6-2.3); Non-African American GFR(CKD) >90 (>60 ml/min/1.73 sqM); Potassium 3.8 mmol/L (3.5-5.1); Sodium 121 mmol/L (137-145); Total Bilirubin 0.7 mg/dL (0.2-1.3); Total Protein 6.7 g/dL (6.3-8.2)
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
--- NOTE | 2020-12-30 19:29 | XR ---
EXAMINATION TYPE: XR chest 1V portable DATE OF EXAM: 12/30/2020 CLINICAL HISTORY: Short of breath. TECHNIQUE: Portable frontal view of the chest. COMPARISON: 09/27/2018 FINDINGS: Elevation of the right hemidiaphragm redemonstrated. Sternotomy wires and mediastinal surg ical clips. The cardiomediastinal silhouette is within normal limits for size. Pulmonary vasculature is normal. Bibasilar airspace opacities and right basilar atelectasis. No pleural effusion. No pneum othorax seen. No acute displaced osseous fracture. IMPRESSION: Bibasilar airspace opacities and right basilar atelectasis.
[2020-12-30] MEDS ORDERED: RX INFO: IV CONTRAST WAS GIVEN 1 EACH MISC MISCELLANE PRN (20:04)
--- NOTE | 2020-12-30 22:09 | CT ---
EXAMINATION TYPE: CT chest angio for PE DATE OF EXAM: 12/30/2020 COMPARISON: 02/20/2018 HISTORY: SOB, +covid CT DLP: 375.1 mGycm Automated exposure control for dose reduction was used. CONTRAST: Performed with IV Contrast, patient injected with 100 mL of Isovue 370. There are 3-D post processed images. There is bilateral groundglass interstitial infiltrate throughout the posterior lung johnson. There is some atelectasis at the posterior lung bases. Heart size is normal. There is no pericardial effusion . There is no pleural effusion. There are no hilar masses. There are a few bronchial lymph nodes up to 1.5 cm. There are a few medias tinal lymph nodes up to 1 cm. There is no evidence of filling defect in the pulmonary arteries. Bony thorax is intact. There is no evidence of thoracic compression fracture. There are sternal wires . IMPRESSION: No evidence of pulmonary embolism. Bilateral extensive groundglass interstitial pulmonary infiltrates consistent with pneumonia. Mild mediastinal and bronchial adenopathy is likely inflammatory.
[2020-12-31] MEDS: ALBUTEROL HFA INHALER INHALATION SCH ×4 (08:23→21:06)
[2020-12-31] MEDS: ASCORBIC ACID 500 MG TAB PO SCH (08:42)
[2020-12-31] MEDS: ZINC SULFATE 220 MG CAP PO SCH (08:43)
[2020-12-31] MEDS: CHOLECALCIFEROL 25 MCG (1000 IU) TABLET PO SCH (08:43)
[2020-12-31] MEDS: dexAMETHasone 2 MG TAB PO SCH (08:43)
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
[2020-12-31 10:38] LABS: HCT 43.1 % (39.6-50.0); HGB 14.9 g/dL (13.0-17.0); MCH 30.3 pg (27.0-32.0); MCHC 34.6 g/dL (32.0-37.0); MCV 87.6 fL (80.0-97.0); Mean Platelet Volume 10.5 fL (9.5-12.2); Platelet Count 312 X 10*3/uL (140-440); RBC 4.92 X 10*6/uL (4.40-5.60); RDW 12.1 % (11.5-14.5); WBC 4.99 X 10*3/uL (4.50-10.00)
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
[2020-12-31 11:33] LABS: African American GFR (CKD) 129.9 (60.0-200.0); Anion Gap 14.8 mmol/L (4.00-12.00); BUN/Creat Ratio 21.1 Ratio (12.00-20.00); Blood Urea Nitrogen 11.9 mg/dL (9.0-27.0); Calcium 8.5 mg/dL (8.7-10.3); Carbon Dioxide 23.1 mmol/L (21.6-31.8); Non-African American GFR(CKD) 112.1 (60.0-200.0); Potassium 3.8 mmol/L (3.5-5.5)
[2020-12-31] MEDS: ENOXAPARIN 40 MG/0.4 ML SYRINGE SQ SCH (11:42)
[2020-12-31 11:43] LABS: Basophils # (M) 0 X 10*3/uL (0.00-0.10); Eosinophils # (M) 0 X 10*3/uL (0.04-0.35); Lymphocytes # (M) 0.45 X 10*3/uL (0.90-5.00); Monocytes # (M) 0.35 X 10*3/uL (0.20-1.00); Neutrophils # (M) 4.19 X 10*3/uL (2.00-8.90); Neutrophils % (M) 84 %
[2020-12-31 12:51] LABS: C Reactive Protein 15.1 mg/dL (<1.0)
[2020-12-31] MEDS: BARICITINIB 2 MG TABLET PO SCH (16:54)
[2021-01-01] MEDS: ALBUTEROL HFA INHALER INHALATION SCH ×4 (08:14→20:33)
[2021-01-01] MEDS: ENOXAPARIN 40 MG/0.4 ML SYRINGE SQ SCH (08:52)
[2021-01-01] MEDS: ZINC SULFATE 220 MG CAP PO SCH (08:53)
[2021-01-01] MEDS: dexAMETHasone 2 MG TAB PO SCH (08:53)
[2021-01-01] MEDS: ASCORBIC ACID 500 MG TAB PO SCH (08:53)
[2021-01-01] MEDS: CHOLECALCIFEROL 25 MCG (1000 IU) TABLET PO SCH (08:53)
--- NOTE | 2021-01-01 12:06 | P.PN ---
Subjective Progress Note Date: 01/01/21 Principal diagnosis: Dyspnea, hypoxia, COVID-19 This is a 60-year-old male patient with a history of myocardial infarction with significant coronary artery disease requiring coronary artery bypass grafting utilizing a HAWTHORNE to the LAD, left radial artery to the second obtuse marginal artery along with severe aortic stenosis with previous aortic valve replacement utilizing a 23 mm paracardial bioprosthesis valve back in July 2018. He also has a history of hypospadias, hypertension, hyperlipidemia, osteoarthritis. The patient has not been taking any home medications. He presented to the emergency room yesterday with a 11 day history of fatigue, weakness, cough and congestion. Chest x-ray was positive for bibasilar airspace disease and right basilar atelectasis. CT angiogram ruled out pulmonary embolism. There is bilateral extensive groundglass interstitial pulmonary infiltrates consistent with pneumonia. Mild mediastinal bronchial adenopathy likely inflammatory. White count 4.9. Hemoglobin 14.9. Lymphocytes 0.5. Sodium 121. Potassium 3.8. Creatinine 0.49. AST 55. ALT 19. Coronavirus positive. He's been initiated on Decadron, item and supplements. Seen today in consultation in the emergency department. He is currently resting fairly comfortably in bed. He is quite dyspneic on minimal exertion. Dyspneic with conversation. He is requiring 15 L high flow nasal cannula plus a nonrebreather mask. 2 saturations in the low 90s. He is febrile. Hemodynamically stable. His received 1 L of fluid resuscitation. He'll be initiated on Decadron, Lovenox, vitamin supplements. We will add Baricitinib as well. On 01/01/2021 patient seen in follow-up on medical surgical floor, she is on 15 L per high flow nasal cannula in addition to a nonrebreather mask, his pulse ox is around 91%, although still requiring high flow oxygen he feels that his breathing is a little better, and patient is breathing a bit easier, he was started on Decadron, and Baricitinib. Lovenox 40 milligrams daily for DVT prophylaxis, patient is on COVID-19 vitamins. His labs have been reviewed d- dimer is 1.53, serum sodium was improving on yesterday's labs and was up to 128, potassium is 3.8, chloride is 90, BUN is 11, creatinine 0.6, LDH was 1606, and CRP was 15.1, pro calcitonin level was negative at 0.06 Objective - Vital Signs Vital signs: Vital Signs Temp 98.5 F 01/01/21 08:58 Pulse 81 01/01/21 08:58 Resp 17 01/01/21 08:58 BP 122/71 01/01/21 08:58 Pulse Ox 92 L 01/01/21 08:58 Intake & Output 12/31/20 01/01/21 01/01/21 18:59 06:59 18:59 Weight 83.915 kg Other: # Voids 1 2 # Bowel Movements 1 - Exam GENERAL EXAM: Alert, pleasant, 60-year-old white male, on 15 L per high flow nasal cannula and 100% nonrebreather mask the pulse ox of 91-92%, comfortable in no apparent distress. HEAD: Normocephalic/atraumatic. EYES: Normal reaction of pupils, equal size. Conjunctiva pink, sclera white. NOSE: Clear with pink turbinates. THROAT: No erythema or exudates. NECK: No masses, no JVD, no thyroid enlargement, no adenopathy. CHEST: No chest wall deformity. Symmetrical expansion. LUNGS: Equal air entry with bibasilar crackles CVS: Regular rate and rhythm, normal S1 and S2, no gallops, no murmurs, no rubs ABDOMEN: Soft, nontender. No hepatosplenomegaly, normal bowel sounds, no guarding or rigidity. EXTREMITIES: No clubbing, no edema, no cyanosis, 2+ pulses and upper and lower extremities. MUSCULOSKELETAL: Muscle strength and tone normal. SPINE: No scoliosis or deformity SKIN: No rashes CENTRAL NERVOUS SYSTEM: Alert and oriented -3. No focal deficits, tone is normal in all 4 extremities. PSYCHIATRIC: Alert and oriented -3. Appropriate affect. Intact judgment and insight. - Labs CBC & Chem 7: 12/31/20 08:04 12/31/20 08:04 Labs: Abnormal Lab Results - Last 24 Hours (Table) 12/31/20 12/31/20 Range/Units 11:58 11:58 D-Dimer 1.53 H (<0.60) mg/L FEU Lactate Dehydrogenase 1606 H (313-618) U/L C-Reactive Protein 15.1 H (<1.0) mg/dL Assessment and Plan Plan: Assessment: #1.Acute hypoxemic respiratory failure secondary to acute COVID-19 pneumonia. Not vaccinated. 11 days since onset of symptoms. Does qualify for Baricitinib to be started today. #2. Hyponatremia suspect secondary to poor oral intake, current sodium 121, improved up to 128 with hydration #3. History of coronary artery disease with previous coronary artery bypass grafting in July 2018 #4. History of severe aortic stenosis status post aortic valve replacement in July 2018 #5. History of atrial fibrillation #6. History of hypertension #7. Hhypospadias #8. Hyperlipidemia #9. History of medication noncompliance, not following with the PCP in the outpatient setting, on no home medications Plan: Continue current medical treatment Continue Decadron Continue Baricitinib Continue Lovenox Continue Vitamins Encouraged patient to reposition self in bed, self prone if able Follow inflammatory markers, d-dimer Overall prognosis is guarded I performed a history & physical examination of the patient and discussed their management with my nurse practitioner, Gris Schroeder. I reviewed the nurse practitioner's note and agree with the documented findings and plan of care. Lung sounds are positive for basilar rales throughout the lung johnson. The findings and the impression was discussed with the patient. I attest to the documentation by the nurse practitioner. Time with Patient: Less than 30
[2021-01-01] MEDS: BARICITINIB 2 MG TABLET PO SCH (12:08)
[2021-01-01] MEDS ORDERED: IPRATROPIUM-ALBUTEROL 3 ML NEB INHALATION PRN (20:37)
--- NOTE | 2021-01-01 20:41 | P.PN ---
Subjective This is a pleasant 6 years old male with past medical history of Atrial Fibrillation, Hyperlipidemia, Hypertension, Osteoarthritis, arthritis in hands, rt hand work injury,Severe aortic valve stenosis status post valve replacement , SOB w/exertion. Coronary artery disease status post CABG Presents because of dyspnea of 6 day duration associated with cough and green phlegm/dark brown phlegm. He denies chest pain. No diarrhea or abdominal pain. No fever or dysuria. Denies smoking, alcohol or illicit drugs. Patient denies history of atrial fibrillation's and he states he is not using blood thinner. Actually he is not following up with PCP, As he states. Patient states that he takes Nattokinase, which is at her medicine for antithrombotic properties He denies smoking, alcohol or illicit drugs Patient is saturating 92% on 15 L per oxygen via nonrebreather. He has low- grade temperature at 99.9. Labs review, he has unremarkable CBC except for mild lymphopenia, hyponatremia at 221. Creatinine normal 0.4. Covid virus is detected CTA of the chest: No evidence of pulmonary embolism. Lateral extensive ground glass interstitial pulmonary infiltrates consistent with pneumonia. Mild mediastinal and bronchial adenopathy is likely inflammatory EKG showing sinus tachycardia at [address]-T changes and QTC 470. Emergency room patient received 2 L of normal saline, multiple vitamins, C, D and zinc and dexamethasone Pulmonary team consult 01/01/2021 Patient reports improvement in his breathing although this morning he was still on 15 L/m of oxygen to the IV flow nasal cannula however his oxygen saturations with a day and improved up to 96%. We will follow up with him tomorrow to see if we can wean him down on his oxygen requirement. No fever and other vitals are stable. Sodium improved to 128. Inflammatory markers LDH and C-reactive protein. Follow-up tomorrow procalcitonin is negative at 0.06. Extremities on, multiple vitamins and barcitinab Objective - Vital Signs Vital signs: Vital Signs Temp 98 F 01/01/21 13:38 Pulse 92 01/01/21 13:38 Resp 17 01/01/21 13:38 BP 124/83 01/01/21 13:38 Pulse Ox 96 01/01/21 13:38 Intake & Output 12/31/20 01/01/21 01/01/21 18:59 06:59 18:59 Weight 83.915 kg Other: # Voids 1 2 # Bowel Movements 1 - Exam GENERAL: The patient is alert and oriented x3, not in any acute distress. Well developed, well nourished. HEENT: Pupils are round and equally reacting to light. EOMI. No scleral icterus. No conjunctival pallor. Normocephalic, atraumatic. No pharyngeal erythema. No thyromegaly. CARDIOVASCULAR: S1 and S2 present. No murmurs, rubs, or gallops. PULMONARY: Chest is clear to auscultation, no wheezing or crackles. ABDOMEN: Soft, nontender, nondistended, normoactive bowel sounds. No palpable organomegaly. MUSCULOSKELETAL: No joint swelling or deformity. EXTREMITIES: No cyanosis, clubbing, or pedal edema. NEUROLOGICAL: Gross neurological examination did not reveal any focal deficits. SKIN: No rashes. no petechiae. - Labs CBC & Chem 7: 12/31/20 08:04 12/31/20 08:04 Assessment and Plan Assessment: Bilateral Covid pneumonia Acute hypoxic respiratory failure Increased inflammatory markers Hyponatremia Hypertension Hyperlipidemia Chronic atrial fibrillation History of osteoarthritis History of aortic valve stenosis status post cardiac valve replacement Coronary artery disease status post CABG Plan: This is a pleasant 6 years old male who presents with covid pneumonia Continue with dexamethasone Continue with vitamin C, vitamin D and zinc Pulmonary consult Monitor sodium closely labs and medication were reviewed.. Continue same treatment. Continue with symptomatic treatment. Resume home medication. Monitor lytes and vitals. DVT and GI prophylaxis. Further recommendations depends on the clinical course of the patient DVT prophylaxis: Subcutaneou Lovenox GI Prophylaxis: Pepcid Prognosis is guarded
[2021-01-01] MEDS ORDERED: FAMOTIDINE 20 MG/2 ML VIAL IV SCH (21:00)
[2021-01-02 06:38] LABS: Basophils # (A) 0.1 k/uL (0-0.2); Basophils % (A) 1 %; Eosinophils % (A) 0 %; HCT 43.8 % (39.0-53.0); HGB 14.7 gm/dL (13.0-17.5); Lymphocytes # (A) 1.1 k/uL (1.0-4.8); Lymphocytes % (A) 10 %; MCH 30.8 pg (25.0-35.0); MCHC 33.5 g/dL (31.0-37.0); Mean Platelet Volume 7.3; Monocytes # (A) 0.4 k/uL (0-1.0); Monocytes % (A) 3 %; Neutrophils # (A) 10.2 k/uL (1.3-7.7); Neutrophils % (A) 85 %; Platelet Count 471 k/uL (150-450); RBC 4.76 m/uL (4.30-5.90); RDW 12.3 % (11.5-15.5)
[2021-01-02 07:04] LABS: ALT 21 U/L (4-49); AST 43 U/L (17-59); African American GFR (CKD) >90 (>60 ml/min/1.73 sqM); Albumin 3.2 g/dL (3.5-5.0); Albumin/Globulin Ratio 0.9; Alkaline Phosphatase 58 U/L (38-126); Anion Gap 8 mmol/L; Blood Urea Nitrogen 20 mg/dL (9-20); Calcium 8.7 mg/dL (8.4-10.2); Carbon Dioxide 27 mmol/L (22-30); Chloride 101 mmol/L (98-107); Globulin 3.5 g/dL; Glucose 97 mg/dL (74-99); LDH 1632 U/L (313-618); Non-African American GFR(CKD) >90 (>60 ml/min/1.73 sqM); Potassium 3.8 mmol/L (3.5-5.1); Sodium 136 mmol/L (137-145); Total Bilirubin 0.7 mg/dL (0.2-1.3); Total Protein 6.7 g/dL (6.3-8.2)
[2021-01-02] MEDS: ALBUTEROL HFA INHALER INHALATION SCH ×4 (07:44→19:27)
[2021-01-02 07:50] LABS: C Reactive Protein 3.4 mg/dL (<1.0)
[2021-01-02] MEDS: ENOXAPARIN 40 MG/0.4 ML SYRINGE SQ SCH (08:24)
[2021-01-02] MEDS: ZINC SULFATE 220 MG CAP PO SCH (08:24)
[2021-01-02] MEDS: FAMOTIDINE 20 MG TAB PO SCH ×2 (08:24→20:04)
[2021-01-02] MEDS: dexAMETHasone 2 MG TAB PO SCH (08:24)
[2021-01-02] MEDS: CHOLECALCIFEROL 25 MCG (1000 IU) TABLET PO SCH (08:24)
[2021-01-02] MEDS: ASCORBIC ACID 500 MG TAB PO SCH (08:24)
[2021-01-02] MEDS: BARICITINIB 2 MG TABLET PO SCH (11:49)
--- NOTE | 2021-01-02 13:06 | P.PN ---
Subjective Progress Note Date: 01/02/21 Principal diagnosis: CoVID 19 pneumonia This is a 60-year-old male patient with a history of myocardial infarction with significant coronary artery disease requiring coronary artery bypass grafting utilizing a HAWTHORNE to the LAD, left radial artery to the second obtuse marginal artery along with severe aortic stenosis with previous aortic valve replacement utilizing a 23 mm paracardial bioprosthesis valve back in July 2018. He also has a history of hypospadias, hypertension, hyperlipidemia, osteoarthritis. The patient has not been taking any home medications. He presented to the emergency room yesterday with a 11 day history of fatigue, weakness, cough and congestion. Chest x-ray was positive for bibasilar airspace disease and right basilar atelectasis. CT angiogram ruled out pulmonary embolism. There is bilateral extensive groundglass interstitial pulmonary infiltrates consistent with pneumonia. Mild mediastinal bronchial adenopathy likely inflammatory. White count 4.9. Hemoglobin 14.9. Lymphocytes 0.5. Sodium 121. Potassium 3.8. Creatinine 0.49. AST 55. ALT 19. Coronavirus positive. He's been initiated on Decadron, item and supplements. Seen today in consultation in the emergency department. He is currently resting fairly comfortably in bed. He is quite dyspneic on minimal exertion. Dyspneic with conversation. He is requiring 15 L high flow nasal cannula plus a nonrebreather mask. 2 saturations in the low 90s. He is febrile. Hemodynamically stable. His received 1 L of fluid resuscitation. He'll be initiated on Decadron, Lovenox, vitamin supplements. We will add Baricitinib as well. On 01/01/2021 patient seen in follow-up on medical surgical floor, she is on 15 L per high flow nasal cannula in addition to a nonrebreather mask, his pulse ox is around 91%, although still requiring high flow oxygen he feels that his breathing is a little better, and patient is breathing a bit easier, he was started on Decadron, and Baricitinib. Lovenox 40 milligrams daily for DVT prophylaxis, patient is on COVID-19 vitamins. His labs have been reviewed d- dimer is 1.53, serum sodium was improving on yesterday's labs and was up to 128, potassium is 3.8, chloride is 90, BUN is 11, creatinine 0.6, LDH was 1606, and CRP was 15.1, pro calcitonin level was negative at 0.06 The patient is seen on 01/02/2021 in follow-up on the regular medical floor. He is currently resting prone in bed. Awake and alert in no acute distress. Still on 15 L high flow nasal cannula plus a nonrebreather mask. O2 saturations in the mid 90s. He is afebrile. Hemodynamically stable. White count 12.0. Hemoglobin 14.7. D-dimer 6.86. Sodium 136. Potassium 3.8. Creatinine 0.7. LDH 1632. C-reactive protein 3.4. Pro calcitonin 0.06. He is continued on Baricitinib, Decadron, Lovenox, vitamin supplements. Objective - Vital Signs Vital signs: Vital Signs Temp 97.6 F 01/02/21 10:00 Pulse 77 01/02/21 10:00 Resp 22 01/02/21 10:00 BP 133/82 01/02/21 10:00 Pulse Ox 95 01/02/21 10:00 Intake & Output 01/01/21 01/02/21 01/02/21 18:59 06:59 18:59 Intake Total 480 Output Total 600 Balance 480 -600 Intake: Oral 480 Output: Urine 600 Other: Voiding Method Toilet Bedside Commode Urinal # Voids 2 # Bowel Movements 0 - Exam GENERAL EXAM: Alert, pleasant 60-year-old gentleman, on 15 L high flow nasal cannula plus a nonrebreather mask, currently laying prone, comfortable in no apparent distress. HEAD: Normocephalic. EYES: Normal reaction of pupils, equal size. NOSE: Clear with pink turbinates. THROAT: No erythema or exudates. NECK: No masses, no JVD. CHEST: No chest wall deformity. LUNGS: Equal air entry with crackles in the bilateral bases. CVS: S1 and S2 normal with no audible murmur, regular rhythm. ABDOMEN: No hepatosplenomegaly, normal bowel sounds, no guarding or rigidity. SPINE: No scoliosis or deformity SKIN: No rashes CENTRAL NERVOUS SYSTEM: No focal deficits, tone is normal in all 4 extremities. EXTREMITIES: There is no peripheral edema. No clubbing, no cyanosis. Peripheral pulses are intact. - Labs CBC & Chem 7: 01/02/21 06:08 01/02/21 06:07 Labs: Abnormal Lab Results - Last 24 Hours (Table) 01/02/21 01/02/21 01/02/21 Range/Units 06:07 06:08 06:08 WBC 12.0 H (3.8-10.6) k/uL Plt Count 471 H (150-450) k/uL Neutrophils # 10.2 H (1.3-7.7) k/uL D-Dimer 6.86 H (<0.60) mg/L FEU Sodium 136 L (137-145) mmol/L Lactate Dehydrogenase 1632 H (313-618) U/L C-Reactive Protein 3.4 H (<1.0) mg/dL Albumin 3.2 L (3.5-5.0) g/dL Assessment and Plan Assessment: 1 Acute hypoxemic respiratory failure secondary to acute COVID-19 pneumonia. Not vaccinated. 11 days since onset of symptoms. Initiated on Baricitinib 2 Hyponatremia suspect secondary to poor oral intake, improved and current sodium 136 3 History of coronary artery disease with previous coronary artery bypass grafting in July 2018 4 History of severe aortic stenosis status post aortic valve replacement in July 2018 5 History of atrial fibrillation 6 History of hypertension 7 Hhypospadias 8 Hyperlipidemia 9 History of medication noncompliance, not following with the PCP in the outpat ient setting, on no home medications Plan: The patient was seen and evaluated by Dr. Sagastume Currently on 15 L high flow pus a nonrebreather mask Titrate the FiO2 as tolerated Frequent re positioning in bed including prone Obtain Dopplers of the lower extremities due to elevated d-dimer Continue Baricitinib Decadron, Lovenox, vitamin supplements We will continue to follow and make further recommendations based on his clinical status I, the cosigning physician, performed a history & physical examination of the patient. Lungs sounds crackles in the bilateral bases. Maintaining good O2 saturations in the 90s on 15 L high flow nasal cannula plus a nonrebreather mask. I discussed the assessment and plan of care with my nurse practitioner, Nathaly Torrez. I attest to the above note as dictated by her.
--- NOTE | 2021-01-02 15:17 | US ---
EXAMINATION TYPE: US venous doppler duplex LE DATE OF EXAM: 01/02/2021 3:07 PM COMPARISON: NONE CLINICAL HISTORY: Elevated d dimer, CoVID. elevated d-dimer, no swelling or pain, Covid+ SIDE PERFORMED: Bilateral TECHNIQUE: The lower extremity deep venous system is examined utilizing real time linear array sonog johnathan with graded compression, doppler sonography and color-flow sonography. VESSELS IMAGED: Common Femoral Vein Deep Femoral Vein Greater Saphenous Vein * Femoral Vein Popliteal Vein Small Saphenous Vein * Proximal Calf Veins (* superficial vessels) very small veins bilaterally Right Leg: Negative for DVT Left Leg: Negative for DVT IMPRESSION: No evidence of deep vein thrombosis in both legs.
--- NOTE | 2021-01-03 00:03 | P.PN ---
Subjective This is a pleasant 6 years old male with past medical history of Atrial Fibrillation, Hyperlipidemia, Hypertension, Osteoarthritis, arthritis in hands, rt hand work injury,Severe aortic valve stenosis status post valve replacement , SOB w/exertion. Coronary artery disease status post CABG Presents because of dyspnea of 6 day duration associated with cough and green phlegm/dark brown phlegm. He denies chest pain. No diarrhea or abdominal pain. No fever or dysuria. Denies smoking, alcohol or illicit drugs. Patient denies history of atrial fibrillation's and he states he is not using blood thinner. Actually he is not following up with PCP, As he states. Patient states that he takes Nattokinase, which is at her medicine for antithrombotic properties He denies smoking, alcohol or illicit drugs Patient is saturating 92% on 15 L per oxygen via nonrebreather. He has low- grade temperature at 99.9. Labs review, he has unremarkable CBC except for mild lymphopenia, hyponatremia at 221. Creatinine normal 0.4. Covid virus is detected CTA of the chest: No evidence of pulmonary embolism. Lateral extensive ground glass interstitial pulmonary infiltrates consistent with pneumonia. Mild mediastinal and bronchial adenopathy is likely inflammatory EKG showing sinus tachycardia at [address]-T changes and QTC 470. Emergency room patient received 2 L of normal saline, multiple vitamins, C, D and zinc and dexamethasone Pulmonary team consult 01/01/2021 Patient reports improvement in his breathing although this morning he was still on 15 L/m of oxygen to the IV flow nasal cannula however his oxygen saturations with a day and improved up to 96%. We will follow up with him tomorrow to see if we can wean him down on his oxygen requirement. No fever and other vitals are stable. Sodium improved to 128. Inflammatory markers LDH and C-reactive protein. Follow-up tomorrow procalcitonin is negative at 0.06. Extremities on, multiple vitamins and barcitinab 01/02/2021 Patient remains awake, minimal dyspnea is still on oxygen at 15 L/m. He has some loose bowel movement. But no chest pain or abdominal pain. No fever since admission. Sodium significantly improved up to 136. LDH still elevated 1632 and C-reactive protein trended down to 3.4. WBC is elevated secondary to steroids. Number went up 6.8 CTA on admission was negative. Doppler of the ultrasound of the legs is negative for DVT as well. Patient currently remains on Lovenox. Also he is on dexamethasone, multiple vitamins and barcitinab Objective - Vital Signs Vital signs: Vital Signs Temp 97.6 F 01/02/21 10:00 Pulse 77 01/02/21 10:00 Resp 22 01/02/21 10:00 BP 133/82 01/02/21 10:00 Pulse Ox 95 01/02/21 10:00 Intake & Output 01/01/21 01/02/21 01/02/21 18:59 06:59 18:59 Intake Total 480 Output Total 600 Balance 480 -600 Intake: Oral 480 Output: Urine 600 Other: Voiding Method Toilet Bedside Commode Urinal # Voids 2 # Bowel Movements 0 - Exam GENERAL: The patient is alert and oriented x3, not in any acute distress. Well developed, well nourished. HEENT: Pupils are round and equally reacting to light. EOMI. No scleral icterus. No conjunctival pallor. Normocephalic, atraumatic. No pharyngeal erythema. No thyromegaly. CARDIOVASCULAR: S1 and S2 present. No murmurs, rubs, or gallops. PULMONARY: Chest is clear to auscultation, no wheezing or crackles. ABDOMEN: Soft, nontender, nondistended, normoactive bowel sounds. No palpable organomegaly. MUSCULOSKELETAL: No joint swelling or deformity. EXTREMITIES: No cyanosis, clubbing, or pedal edema. NEUROLOGICAL: Gross neurological examination did not reveal any focal deficits. SKIN: No rashes. no petechiae. - Labs CBC & Chem 7: 01/02/21 06:08 01/02/21 06:07 Labs: Abnormal Lab Results - Last 24 Hours (Table) 01/02/21 01/02/21 01/02/21 Range/Units 06:07 06:08 06:08 WBC 12.0 H (3.8-10.6) k/uL Plt Count 471 H (150-450) k/uL Neutrophils # 10.2 H (1.3-7.7) k/uL D-Dimer 6.86 H (<0.60) mg/L FEU Sodium 136 L (137-145) mmol/L Lactate Dehydrogenase 1632 H (313-618) U/L C-Reactive Protein 3.4 H (<1.0) mg/dL Albumin 3.2 L (3.5-5.0) g/dL Assessment and Plan Assessment: Bilateral Covid pneumonia Acute hypoxic respiratory failure Increased inflammatory markers Hyponatremia Hypertension Hyperlipidemia Chronic atrial fibrillation History of osteoarthritis History of aortic valve stenosis status post cardiac valve replacement Coronary artery disease status post CABG Plan: This is a pleasant 6 years old male who presents with covid pneumonia Continue with dexamethasone Continue with vitamin C, vitamin D and zinc Pulmonary consult Monitor sodium closely labs and medication were reviewed.. Continue same treatment. Continue with symptomatic treatment. Resume home medication. Monitor lytes and vitals. DVT and GI prophylaxis. Further recommendations depends on the clinical course of the patient DVT prophylaxis: Subcutaneou Lovenox GI Prophylaxis: Pepcid Prognosis is guarded
[2021-01-03 01:30] VITALS: BP 147/87; RESP 18
[2021-01-03] MEDS ORDERED: SODIUM BICARB 8.4% 50 ML SYR (1 MEQ/ML) ONE (03:45)
[2021-01-03] MEDS ORDERED: EPINEPHrine 10 ML SYRINGE (0.1 MG/ML) ONE (03:45)
[2021-01-03] MEDS ORDERED: CALCIUM CHLORIDE 100 MG/ML 10 ML SYRINGE ONE (03:45)
[2021-01-03 04:22] LABS: Glucose,Whole Blood 103 mg/dL (75-99)
--- NOTE | 2021-01-03 04:40 | P.EN ---
Code Blue note Activated at 0345. Arrived on the scene shortly after. The patient was undergoing CPR with PEA on the monitor. Reviewed the chart and discussed the case with the RN. The patient was admitted for COVID pnuemonia and had been on 15 L non-rebreather mask. The nurse found the patient in the room, unresponsive and CPR was immediately started with ACLS protocol performed. Patient was given Epinephrine IVP x 7, Calcium chloride IVP x 1, and Sodium Bicarbonate IVP x 1. Shocked for V-fib @ 120 J biphasic x 2 with subsequent PEA. I discussed the case with the patient's on the phone who noted that her hadn't wanted to be put on life-support. She requested that CPR be stopped. The patient was subsequently pronounced with total CPR time of 20 minutes. The primary team was notified by the RN. Please refer to the code sheet for further details.
[2021-01-03 06:48] VITALS: PULSE 90; TEMP 99.7
[2021-01-03] MEDS: ALBUTEROL HFA INHALER INHALATION SCH (07:19)
--- NOTE | 2021-01-03 20:42 | P.DS ---
Providers Date of admission: 12/30/20 19:13 Attending physician: Jojo Bush Consults: 12/30/20 19:13 Consult Physician Urgent Consulting Provider: John Sagastume Consult Reason/Comments: COVID pneumonia Do you want consulting provider notified?: Yes Primary care physician: Stated None Hospital Course: Diagnoses: Bilateral Covid pneumonia Acute hypoxic respiratory failure Increased inflammatory markers Hyponatremia Hypertension Hyperlipidemia Chronic atrial fibrillation History of osteoarthritis History of aortic valve stenosis status post cardiac valve replacement Coronary artery disease status post CABG Hospital course: This is a pleasant 60 years old male with past medical history of Atrial Fibrillation, Hyperlipidemia, Hypertension, Osteoarthritis, arthritis in hands, rt hand work injury,Severe aortic valve stenosis status post valve replacement , SOB w/exertion. Coronary artery disease status post CABG He presents with respiratory symptoms secondary to Covid pneumonia with signific ant hypoxia on admission records and 15 ml/m via high flow nasal cannula throughout his hospital stay. His been followed closely by pulmonary service. His CTA on admission was negative for pulmonary embolism. He was treated with dexamethasone, multiple vitamins and barcitinab. Patient did not show much improvement and yesterday patient was found unresponsive, he was coded per protocol, please refer to the code sheet and note for more details, however patient did not survive. Family aware. Eventually patient today Plan - Discharge Summary Discharge Rx Participant: Yes New Discharge Prescriptions: No Action Ascorbic Acid [Vitamin C] 1,000 mg PO DAILY Discharge Medication List Ascorbic Acid [Vitamin C] 1,000 mg PO DAILY 12/30/20 [History] Follow up Appointment(s)/Referral(s): None,Stated [Primary Care Provider] - 1-2 days Discharge Disposition: - Preliminary Cause of Preliminary Cause of : Covid pneumonia
== END 2021-01-03 04:05 | disposition expired | DRG 177 ==
LOC: EC 17:45 → 4SSUR 19:13
PROVIDERS: ADMIT Hospitalist; ATTEND Hospitalist
PROC: 3E0333Z Introduction of Anti-inflammatory into Peripheral Vein, Percutaneous Approach (ICD-10-PCS; 2020-12-30)
PROC: XW0DXM6 Introduction of Baricitinib into Mouth and Pharynx, External Approach, New Technology Group 6 (ICD-10-PCS; principal; 2020-12-31)
PROC: 5A0945A Assistance with Respiratory Ventilation, 24-96 Consecutive Hours, High Flow/Velocity Cannula (ICD-10-PCS; 2020-12-31)
PROC: 3E033XZ Introduction of Vasopressor into Peripheral Vein, Percutaneous Approach (ICD-10-PCS; 2021-01-03)
PROC: 5A12012 Performance of Cardiac Output, Single, Manual (ICD-10-PCS; 2021-01-03)
DX: U07.1 COVID-19 (principal); J12.82 Pneumonia due to coronavirus disease 2019; J96.01 Acute respiratory failure with hypoxia; E87.1 Hypo-osmolality and hyponatremia; I48.20 Chronic atrial fibrillation, unspecified; J98.11 Atelectasis; D72.810 Lymphocytopenia; E78.5 Hyperlipidemia, unspecified; I10 Essential (primary) hypertension; I25.10 Atherosclerotic heart disease of native coronary artery without angina pectoris; I25.2 Old myocardial infarction; I35.0 Nonrheumatic aortic (valve) stenosis; T38.0X5A Adverse effect of glucocorticoids and synthetic analogues, initial encounter; M19.90 Unspecified osteoarthritis, unspecified site; I46.8 Cardiac arrest due to other underlying condition; I49.01 Ventricular fibrillation; Q54.9 Hypospadias, unspecified; Z82.3 Family history of stroke; Z82.49 Family history of ischemic heart disease and other diseases of the circulatory system; Z91.14 Patient's other noncompliance with medication regimen; Z95.1 Presence of aortocoronary bypass graft; Z95.2 Presence of prosthetic heart valve
CPT/HCPCS: 36415; 71045; 71275; 80048; 80053; 83615; 83735; 84145; 85025; 85379; 86140; 87635; 93005; 93970; 94640; 94760; 96374; 99285